=== PATIENT | female | born 1935 | race American Indian/Alaskan Native ===

== ENCOUNTER 2016-12-10 07:01 | Day surgery (SDC) | payer MEDICARE, BC ==
[2016-12-10] MEDS ORDERED: LACTATED RINGERS 1,000 ML IV ONE (07:48)
[2016-12-10] MEDS ORDERED: MIDAZOLAM 2 MG/2 ML VIAL IVP ONE (08:30)
[2016-12-10] MEDS ORDERED: fentaNYL 100 MCG/2 ML VIAL IVP ONE (08:30)
[2017-01-04] MEDS ORDERED: ACETAMINOPHEN 1,000 MG/100 ML VIAL IV ONE (11:30)
[2017-01-04] MEDS ORDERED: GLYCOPYRROLATE 1 MG/5 ML VIAL IVP ONE (11:30)
== END 2016-12-10 07:02 | disposition home or self-care (01) ==
PROC: 0DBN8ZX Excision of Sigmoid Colon, Via Natural or Artificial Opening Endoscopic, Diagnostic (ICD-10-PCS; 2016-12-10)
PROC: 0DBP8ZX Excision of Rectum, Via Natural or Artificial Opening Endoscopic, Diagnostic (ICD-10-PCS; principal; 2016-12-10 11:15)
DX: C19 Malignant neoplasm of rectosigmoid junction (principal); K57.30 Diverticulosis of large intestine without perforation or abscess without bleeding; K62.6 Ulcer of anus and rectum; K63.3 Ulcer of intestine; K64.8 Other hemorrhoids; I48.91 Unspecified atrial fibrillation; E78.5 Hyperlipidemia, unspecified; Z79.891 Long term (current) use of opiate analgesic; Z79.899 Other long term (current) drug therapy
CPT/HCPCS: 45380; J7120

== ENCOUNTER 2017-01-03 | Outpatient (CLI) | payer MEDICARE, BC | END 2017-01-03 16:22 | disposition critical access hospital (66) | CPT/HCPCS: A0425; A0429 ==

== ENCOUNTER 2017-01-03 16:31 | Inpatient (IN) | payer MEDICARE, BC ==
[2017-01-03] MEDS ORDERED: ONDANSETRON 4 MG/2 ML VIAL IVP STA (16:35)
[2017-01-03] MEDS ORDERED: HYDROmorphone 1 MG/ML SYRINGE IVP STA ×3 (16:35→18:49)
[2017-01-03] MEDS ORDERED: ONDANSETRON 4 MG/2 ML VIAL ONE (16:59)
[2017-01-03] MEDS ORDERED: HYDROmorphone 1 MG/ML SYRINGE ONE (16:59)
[2017-01-03] MEDS ORDERED: PROMETHAZINE INJ 12.5 MG in SODIUM CHLORIDE 0.9% 50 ML IV STA (17:12)
[2017-01-03] MEDS ORDERED: SODIUM CHLORIDE 0.9% 1,000 ML IV ONE (18:03)
[2017-01-03] MEDS ORDERED: SODIUM CHLORIDE FLUSH 0.9% 10 ML SYRINGE IVP PRN (18:33)
[2017-01-03] MEDS ORDERED: ONDANSETRON 4 MG/2 ML VIAL IVP SCH (18:47)
[2017-01-03] MEDS ORDERED: SODIUM CHLORIDE 0.9% 500 ML IV SCH (19:09)
[2017-01-03] MEDS ORDERED: cloNIDine 0.1 MG TABLET SL SCH (21:00)
[2017-01-03] MEDS ORDERED: ENALAPRILAT 1.25 MG/ML VIAL IVP SCH (21:00)
[2017-01-03] MEDS: SODIUM CHLORIDE FLUSH 0.9% 10 ML SYRINGE IVP SCH (22:07)
[2017-01-03] MEDS: NS W/20 MEQ KCL 1,000 ML IV SCH (22:33)
[2017-01-04] MEDS: ENALAPRILAT 1.25 MG/ML VIAL IVP SCH ×3 (00:48→14:45)
[2017-01-04] MEDS: ONDANSETRON 4 MG/2 ML VIAL IVP PRN ×2 (00:55→05:56)
[2017-01-04] MEDS: HYDROmorphone 1 MG/ML SYRINGE IVP PRN ×6 (03:44→22:30)
[2017-01-04] MEDS: SODIUM CHLORIDE FLUSH 0.9% 10 ML SYRINGE IVP SCH ×5 (06:02→22:00)
[2017-01-04] MEDS ORDERED: PIPERACILLIN/TAZOBACTAM 3.375 GM in SODIUM CHLORIDE 0.9% MINIBAG 100 ML IV SCH (07:00)
[2017-01-04] MEDS ORDERED: fentaNYL 100 MCG/2 ML VIAL IVP ONE (11:30)
[2017-01-04] MEDS ORDERED: ROCURONIUM 50 MG/5 ML VIAL IVP ONE (11:30)
[2017-01-04] MEDS ORDERED: NEOSTIGMINE 1 MG/1 ML 10 ML MDV IVP ONE (11:30)
[2017-01-04] MEDS ORDERED: PHENYLEPHRINE 50 MG/5 ML VIAL IV ONE (11:30)
[2017-01-04] MEDS ORDERED: ONDANSETRON 4 MG/2 ML VIAL IVP ONE (11:30)
[2017-01-04] MEDS ORDERED: ePHEDrine 50 MG/ML AMP IVP ONE (11:30)
[2017-01-04] MEDS ORDERED: MIDAZOLAM 2 MG/2 ML VIAL IVP ONE (11:30)
[2017-01-04] MEDS ORDERED: LIDOCAINE-PF 2% 10 ML AMP SUBQ ONE (11:30)
[2017-01-04] MEDS ORDERED: SUCCINYLCHOLINE 200 MG/10 ML VIAL IVP ONE (11:30)
[2017-01-04] MEDS ORDERED: GLYCOPYRROLATE 1 MG/5 ML VIAL SUBQ ONE (11:30)
[2017-01-04] MEDS ORDERED: DEXAMETHASONE 4 MG/ML VIAL IVP ONE (11:30)
[2017-01-04] MEDS ORDERED: SODIUM CHLORIDE FLUSH 0.9% 10 ML SYRINGE IVP PRN ×2 (12:01→12:29)
[2017-01-04] MEDS ORDERED: diphenhydrAMINE INJ 50 MG/ML VIAL IVP PRN (12:17)
[2017-01-04] MEDS ORDERED: NALBUPHINE 20 MG/ML AMP IVP PRN (12:17)
[2017-01-04] MEDS ORDERED: SODIUM CHLORIDE 0.9% 1,000 ML IV ONE (12:23)
[2017-01-04] MEDS ORDERED: SUFENTA/BUPIV 0.4 MCG/0.0625% 150 ML EP ONE (12:43)
[2017-01-04] MEDS ORDERED: ALBUMIN 25% 100 ML IV ONE (13:00)
[2017-01-04] MEDS ORDERED: PIPERACILLIN/TAZOBACTAM 3.375 GM in SODIUM CHLORIDE 0.9% MINIBAG 100 ML IV ONE (14:00)
[2017-01-04] MEDS ORDERED: SODIUM CHLORIDE FLUSH 0.9% 10 ML SYRINGE IVP SCH (14:00)
[2017-01-04] MEDS: PANTOPRAZOLE 40 MG VIAL IVP SCH (14:30)
[2017-01-04] MEDS: D5NS W/20 MEQ KCL 1,000 ML IV SCH (14:31)
[2017-01-04] MEDS: SUFENTA/BUPIV 0.4 MCG/0.0625% 150 ML EP PRN ×2 (14:52→19:24)
[2017-01-04] MEDS: NS W/20 MEQ KCL 1,000 ML IV SCH (20:24)
[2017-01-04] MEDS: DOPamine 800 MG/500 ML 500 ML IV SCH (20:25)
[2017-01-04] MEDS: KETOROLAC 15 MG/ML VIAL IVP PRN (22:18)
[2017-01-04] MEDS: ACETAMINOPHEN 1,000 MG/100 ML 100 ML IV PRN (22:18)
[2017-01-05] MEDS: SUFENTA/BUPIV 0.4 MCG/0.0625% 150 ML EP PRN ×3 (03:52→19:38)
[2017-01-05] MEDS: KETOROLAC 15 MG/ML VIAL IVP PRN ×3 (04:30→17:40)
[2017-01-05] MEDS: HYDROmorphone 1 MG/ML SYRINGE IVP PRN ×10 (04:30→22:57)
[2017-01-05] MEDS: ACETAMINOPHEN 1,000 MG/100 ML 100 ML IV PRN ×3 (04:47→17:40)
[2017-01-05] MEDS: ENALAPRILAT 1.25 MG/ML VIAL IVP SCH ×5 (04:51→17:35)
[2017-01-05] MEDS: SODIUM CHLORIDE FLUSH 0.9% 10 ML SYRINGE IVP SCH ×4 (06:18→16:45)
[2017-01-05] MEDS: PANTOPRAZOLE 40 MG VIAL IVP SCH (06:18)
[2017-01-05] MEDS: D5NS W/20 MEQ KCL 1,000 ML IV SCH ×3 (09:20→19:53)
[2017-01-06] MEDS: HYDROmorphone 1 MG/ML SYRINGE IVP PRN ×6 (02:13→22:50)
[2017-01-06] MEDS: SUFENTA/BUPIV 0.4 MCG/0.0625% 150 ML EP PRN ×3 (04:57→18:19)
[2017-01-06] MEDS: ACETAMINOPHEN 1,000 MG/100 ML 100 ML IV PRN (05:53)
[2017-01-06] MEDS: SODIUM CHLORIDE FLUSH 0.9% 10 ML SYRINGE IVP SCH ×4 (07:32→13:27)
[2017-01-06] MEDS: ENALAPRILAT 1.25 MG/ML VIAL IVP SCH ×4 (07:32→18:07)
[2017-01-06] MEDS: D5NS W/20 MEQ KCL 1,000 ML IV SCH ×2 (07:33→15:00)
[2017-01-06] MEDS: PANTOPRAZOLE 40 MG VIAL IVP SCH (07:35)
[2017-01-07] MEDS: ENALAPRILAT 1.25 MG/ML VIAL IVP SCH ×4 (00:15→18:14)
[2017-01-07] MEDS: D5NS W/20 MEQ KCL 1,000 ML IV SCH ×2 (00:27→07:59)
[2017-01-07] MEDS: SUFENTA/BUPIV 0.4 MCG/0.0625% 150 ML EP PRN ×3 (00:27→17:44)
[2017-01-07] MEDS: HYDROmorphone 1 MG/ML SYRINGE IVP PRN ×9 (00:32→23:28)
[2017-01-07] MEDS: SODIUM CHLORIDE FLUSH 0.9% 10 ML SYRINGE IVP SCH ×3 (06:28→23:36)
[2017-01-07] MEDS: PANTOPRAZOLE 40 MG VIAL IVP SCH (06:33)
[2017-01-07] MEDS ORDERED: LABETALOL 20 MG/4 ML SYRINGE IVP ONE (10:28)
[2017-01-07] MEDS ORDERED: diltiaZEM INJ 5 MG/ML VIAL ONE (10:36)
[2017-01-07] MEDS: diltiaZEM INJ 125 MG in DEXTROSE 5% 100 ML IV SCH (11:18)
[2017-01-07] MEDS ORDERED: ADENOSINE 6 MG/2 ML VIAL IVP ONE ×2 (12:00→12:37)
[2017-01-07] MEDS: PIPERACILLIN/TAZOBACTAM 2.25 GM in SODIUM CHLORIDE 0.9% MINIBAG 100 ML IV SCH ×2 (12:45→19:39)
[2017-01-07] MEDS: DOPamine 800 MG/500 ML 500 ML IV SCH (13:39)
[2017-01-08] MEDS: ENALAPRILAT 1.25 MG/ML VIAL IVP SCH ×4 (00:19→18:54)
[2017-01-08] MEDS: D5NS W/20 MEQ KCL 1,000 ML IV SCH (00:33)
[2017-01-08] MEDS: SUFENTA/BUPIV 0.4 MCG/0.0625% 150 ML EP PRN ×3 (01:40→17:23)
[2017-01-08] MEDS: HYDROmorphone 1 MG/ML SYRINGE IVP PRN ×6 (02:42→21:41)
[2017-01-08] MEDS: PIPERACILLIN/TAZOBACTAM 2.25 GM in SODIUM CHLORIDE 0.9% MINIBAG 100 ML IV SCH ×3 (03:54→19:42)
[2017-01-08] MEDS: PANTOPRAZOLE 40 MG VIAL IVP SCH (06:19)
[2017-01-08] MEDS: SODIUM CHLORIDE FLUSH 0.9% 10 ML SYRINGE IVP SCH ×3 (06:19→20:03)
[2017-01-08] MEDS: KETOROLAC 15 MG/ML VIAL IVP PRN (08:22)
[2017-01-08] MEDS: ACETAMINOPHEN 1,000 MG/100 ML 100 ML IV PRN (08:42)
[2017-01-08] MEDS ORDERED: D5NS W/20 MEQ KCL 1,000 ML IV SCH (12:00)
[2017-01-08] MEDS: diltiaZEM CD 120 MG CAPSULE PO SCH (13:24)
[2017-01-08] MEDS: diltiaZEM INJ 125 MG in DEXTROSE 5% 100 ML IV SCH ×2 (13:29→17:06)
[2017-01-08] MEDS ORDERED: diltiaZEM INJ 5 MG/ML VIAL IVP ONE ×2 (15:30→17:00)
[2017-01-08] MEDS ORDERED: diltiaZEM INJ 125 MG in DEXTROSE 5% 100 ML IV ONE (16:47)
[2017-01-09] MEDS: SUFENTA/BUPIV 0.4 MCG/0.0625% 150 ML EP PRN (00:21)
[2017-01-09] MEDS: HYDROmorphone 1 MG/ML SYRINGE IVP PRN ×12 (02:53→23:25)
[2017-01-09] MEDS: D5NS W/20 MEQ KCL 1,000 ML IV SCH ×2 (03:54→10:37)
[2017-01-09] MEDS: PIPERACILLIN/TAZOBACTAM 2.25 GM in SODIUM CHLORIDE 0.9% MINIBAG 100 ML IV SCH ×3 (03:55→20:07)
[2017-01-09] MEDS: ENALAPRILAT 1.25 MG/ML VIAL IVP SCH ×5 (07:44→23:20)
[2017-01-09] MEDS: SODIUM CHLORIDE FLUSH 0.9% 10 ML SYRINGE IVP SCH ×4 (07:44→23:22)
[2017-01-09] MEDS: PANTOPRAZOLE 40 MG VIAL IVP SCH (07:47)
[2017-01-09] MEDS: diltiaZEM CD 120 MG CAPSULE PO SCH (09:57)
[2017-01-09] MEDS ORDERED: fentaNYL 25 MCG PATCH TOP SCH (10:00)
[2017-01-09] MEDS: diltiaZEM INJ 125 MG in DEXTROSE 5% 100 ML IV SCH (10:14)
[2017-01-09] MEDS: ACETAMINOPHEN 1,000 MG/100 ML 100 ML IV PRN ×2 (13:14→22:40)
[2017-01-09] MEDS: ONDANSETRON 4 MG/2 ML VIAL IVP PRN (21:27)
[2017-01-09] MEDS: oxyCODONE 5 MG TABLET PO PRN (23:18)
[2017-01-10] MEDS: HYDROmorphone 1 MG/ML SYRINGE IVP PRN ×15 (02:55→23:43)
[2017-01-10] MEDS: SODIUM CHLORIDE FLUSH 0.9% 10 ML SYRINGE IVP SCH ×9 (02:57→22:46)
[2017-01-10] MEDS: PIPERACILLIN/TAZOBACTAM 2.25 GM in SODIUM CHLORIDE 0.9% MINIBAG 100 ML IV SCH ×3 (03:59→19:19)
[2017-01-10] MEDS: D5NS W/20 MEQ KCL 1,000 ML IV SCH ×2 (04:04→19:18)
[2017-01-10] MEDS: oxyCODONE 5 MG TABLET PO PRN ×3 (04:05→18:10)
[2017-01-10] MEDS: PANTOPRAZOLE 40 MG VIAL IVP SCH (06:37)
[2017-01-10] MEDS: ENALAPRILAT 1.25 MG/ML VIAL IVP SCH (06:59)
[2017-01-10] MEDS: ACETAMINOPHEN 1,000 MG/100 ML 100 ML IV PRN ×2 (07:39→14:07)
[2017-01-10] MEDS: diltiaZEM CD 120 MG CAPSULE PO SCH (09:30)
[2017-01-10] MEDS: ONDANSETRON 4 MG/2 ML VIAL IVP PRN (18:39)
[2017-01-10] MEDS: ENALAPRIL 5 MG TABLET PO SCH (19:20)
[2017-01-10] MEDS ORDERED: SODIUM CHLORIDE 0.9% 500 ML IV PRN (19:46)
[2017-01-11] MEDS: HYDROmorphone 1 MG/ML SYRINGE IVP PRN ×17 (01:38→23:01)
[2017-01-11] MEDS: oxyCODONE 5 MG TABLET PO PRN ×5 (01:43→21:41)
[2017-01-11] MEDS: SODIUM CHLORIDE FLUSH 0.9% 10 ML SYRINGE IVP SCH ×8 (03:54→15:00)
[2017-01-11] MEDS: PIPERACILLIN/TAZOBACTAM 2.25 GM in SODIUM CHLORIDE 0.9% MINIBAG 100 ML IV SCH ×3 (04:50→19:52)
[2017-01-11] MEDS: PANTOPRAZOLE 40 MG VIAL IVP SCH (06:18)
[2017-01-11] MEDS: diltiaZEM CD 120 MG CAPSULE PO SCH (08:18)
[2017-01-11] MEDS: ENALAPRIL 5 MG TABLET PO SCH (08:18)
[2017-01-11] MEDS ORDERED: amLODIPine 5 MG TABLET PO ONE (09:00)
[2017-01-11] MEDS: D5NS W/20 MEQ KCL 1,000 ML IV SCH ×2 (15:18→16:04)
[2017-01-11] MEDS ORDERED: fentaNYL 50 MCG PATCH TOP SCH (19:00)
[2017-01-12] MEDS: HYDROmorphone 1 MG/ML SYRINGE IVP PRN ×17 (00:10→22:59)
[2017-01-12] MEDS: oxyCODONE 5 MG TABLET PO PRN ×6 (01:16→22:26)
[2017-01-12] MEDS: PIPERACILLIN/TAZOBACTAM 2.25 GM in SODIUM CHLORIDE 0.9% MINIBAG 100 ML IV SCH ×3 (03:59→20:09)
[2017-01-12] MEDS: SODIUM CHLORIDE FLUSH 0.9% 10 ML SYRINGE IVP SCH ×8 (06:09→23:00)
[2017-01-12] MEDS: PANTOPRAZOLE 40 MG VIAL IVP SCH (06:33)
[2017-01-12] MEDS: diltiaZEM CD 120 MG CAPSULE PO SCH (08:47)
[2017-01-12] MEDS: ENALAPRIL 5 MG TABLET PO SCH (08:47)
[2017-01-12] MEDS: D5NS W/20 MEQ KCL 1,000 ML IV SCH ×2 (11:30→11:55)
[2017-01-12] MEDS: cloNIDine 0.1 MG TABLET PO PRN (20:20)
[2017-01-13] MEDS: HYDROmorphone 1 MG/ML SYRINGE IVP PRN ×8 (00:12→22:02)
[2017-01-13] MEDS: oxyCODONE 5 MG TABLET PO PRN (03:48)
[2017-01-13] MEDS: PIPERACILLIN/TAZOBACTAM 2.25 GM in SODIUM CHLORIDE 0.9% MINIBAG 100 ML IV SCH (03:53)
[2017-01-13] MEDS: SODIUM CHLORIDE FLUSH 0.9% 10 ML SYRINGE IVP SCH ×4 (06:44→22:02)
[2017-01-13] MEDS: PANTOPRAZOLE 40 MG VIAL IVP SCH (06:44)
[2017-01-13] MEDS: HYDROcod/ACETAM 10 MG/325 MG TABLET PO PRN ×4 (08:12→20:20)
[2017-01-13] MEDS: diltiaZEM CD 120 MG CAPSULE PO SCH (09:25)
[2017-01-13] MEDS: ENALAPRIL 5 MG TABLET PO SCH (09:25)
[2017-01-13] MEDS: D5NS W/20 MEQ KCL 1,000 ML IV SCH (09:42)
[2017-01-13] MEDS: cloNIDine 0.1 MG TABLET PO PRN (20:19)
[2017-01-14] MEDS: HYDROcod/ACETAM 10 MG/325 MG TABLET PO PRN ×4 (00:26→12:56)
[2017-01-14] MEDS: HYDROmorphone 1 MG/ML SYRINGE IVP PRN ×3 (02:21→11:00)
[2017-01-14] MEDS: D5NS W/20 MEQ KCL 1,000 ML IV SCH (05:13)
[2017-01-14] MEDS: SODIUM CHLORIDE FLUSH 0.9% 10 ML SYRINGE IVP SCH (05:18)
[2017-01-14] MEDS ORDERED: amLODIPine 5 MG TABLET PO SCH (09:00)
[2017-01-14] MEDS: diltiaZEM CD 120 MG CAPSULE PO SCH (09:02)
[2017-01-14] MEDS: ENALAPRIL 5 MG TABLET PO SCH (09:02)
[2017-01-14] MEDS ORDERED: ACETAMINOPHEN 1,000 MG/100 ML VIAL IV ONE (15:04)
== END 2017-01-14 15:05 | DRG 330 ==
PROC: 0DBN0ZZ Excision of Sigmoid Colon, Open Approach (ICD-10-PCS; principal; 2017-01-04 07:30)
PROC: 07BC0ZX Excision of Pelvis Lymphatic, Open Approach, Diagnostic (ICD-10-PCS; principal; 2017-01-04 07:30)
PROC: 0D1N0Z4 Bypass Sigmoid Colon to Cutaneous, Open Approach (ICD-10-PCS; principal; 2017-01-04 07:30)
PROC: 30233N1 Transfusion of Nonautologous Red Blood Cells into Peripheral Vein, Percutaneous Approach (ICD-10-PCS; 2017-01-06)
DX: C19 Malignant neoplasm of rectosigmoid junction (principal); K62.89 Other specified diseases of anus and rectum; C78.6 Secondary malignant neoplasm of retroperitoneum and peritoneum; C79.51 Secondary malignant neoplasm of bone; E87.1 Hypo-osmolality and hyponatremia; E46 Unspecified protein-calorie malnutrition; Z68.20 Body mass index [BMI] 20.0-20.9, adult; D64.9 Anemia, unspecified; I10 Essential (primary) hypertension; E86.0 Dehydration; G89.3 Neoplasm related pain (acute) (chronic); I48.91 Unspecified atrial fibrillation; D72.829 Elevated white blood cell count, unspecified; E87.8 Other disorders of electrolyte and fluid balance, not elsewhere classified; Z87.891 Personal history of nicotine dependence; C78.02 Secondary malignant neoplasm of left lung; C78.01 Secondary malignant neoplasm of right lung; Z79.891 Long term (current) use of opiate analgesic; Z71.89 Other specified counseling; Z66 Do not resuscitate; R53.83 Other fatigue; R53.1 Weakness

== ENCOUNTER 2017-01-21 17:19 | Outpatient (CLI) | payer MEDICARE, BC | END 2017-01-21 17:20 | disposition critical access hospital (66) | DX: R10.9 Unspecified abdominal pain (principal) | CPT/HCPCS: A0425; A0429 ==

== ENCOUNTER 2017-01-21 17:25 | Inpatient (IN) | payer MEDICARE, BC ==
[2017-01-21] MEDS ORDERED: HYDROmorphone 1 MG/ML SYRINGE IVP STA ×2 (17:33→20:34)
[2017-01-21] MEDS ORDERED: ONDANSETRON 4 MG/2 ML VIAL IVP STA ×2 (17:33→21:03)
[2017-01-21] MEDS ORDERED: SODIUM CHLORIDE 0.9% 1,000 ML IV ONE ×2 (17:33→17:40)
[2017-01-21] MEDS ORDERED: HYDROmorphone 1 MG/ML SYRINGE ONE ×2 (17:40→20:52)
[2017-01-21] MEDS ORDERED: ONDANSETRON 4 MG/2 ML VIAL ONE ×2 (17:40→20:52)
[2017-01-21] MEDS ORDERED: IOPAMIDOL-300 100 ML VIAL IVP ONE (19:08)
[2017-01-21] MEDS ORDERED: IOPAMIDOL-300 50 ML VIAL PO ONE (19:12)
[2017-01-21] MEDS ORDERED: MAGNESIUM CITRATE 296 ML BOTTLE PO STA (20:00)
[2017-01-21] MEDS ORDERED: METHYLNALTREXONE 12 MG/0.6 ML VIAL SUBQ ONE ×2 (20:00→20:03)
[2017-01-21] MEDS ORDERED: PIPERACILLIN/TAZOBACTAM 3.375 GM in SODIUM CHLORIDE 0.9% MINIBAG 100 ML IV STA (20:01)
[2017-01-21] MEDS ORDERED: MAGNESIUM CITRATE 296 ML BOTTLE ONE (20:03)
[2017-01-21] MEDS ORDERED: ACETAMINOPHEN 325 MG TABLET PO PRN (21:08)
[2017-01-21] MEDS ORDERED: HYDROmorphone 1 MG/ML SYRINGE IVP PRN (21:08)
[2017-01-21] MEDS ORDERED: LORazepam 0.5 MG TABLET PO PRN (21:11)
[2017-01-21] MEDS ORDERED: LORazepam 2 MG/ML SYRINGE IVP STA (21:13)
[2017-01-21] MEDS ORDERED: KETOROLAC 60 MG/2 ML VIAL IVP STA (21:13)
[2017-01-21] MEDS ORDERED: LORazepam 2 MG/ML SYRINGE ONE (21:14)
[2017-01-21] MEDS ORDERED: KETOROLAC 30 MG/ML VIAL ONE (21:17)
[2017-01-21] MEDS ORDERED: HYDROmorphone PCA 10 MG IV PRN ×2 (21:37→22:28)
[2017-01-21] MEDS ORDERED: diphenhydrAMINE INJ 50 MG/ML VIAL IVP PRN (21:37)
[2017-01-21] MEDS ORDERED: LORazepam 2 MG/ML SYRINGE IVP PRN (21:43)
[2017-01-21] MEDS: SODIUM CHLORIDE FLUSH 0.9% 10 ML SYRINGE IVP SCH ×2 (22:16→22:42)
[2017-01-21] MEDS: SODIUM CHLORIDE FLUSH 0.9% 10 ML SYRINGE IVP PRN (22:42)
[2017-01-21] MEDS ORDERED: PROCHLORPERAZINE 10 MG/2 ML VIAL IVP PRN (22:47)
[2017-01-21] MEDS ORDERED: FUROSEMIDE 20 MG/2 ML VIAL IVP STA (23:04)
[2017-01-21] MEDS: ONDANSETRON 4 MG/2 ML VIAL IVP PRN (23:40)
[2017-01-22] MEDS ORDERED: diphenhydrAMINE INJ 50 MG/ML VIAL IVP PRN (00:40)
[2017-01-22] MEDS ORDERED: PROMETHAZINE 25 MG/1 ML VIAL IM PRN (00:40)
[2017-01-22] MEDS: SODIUM CHLORIDE 0.9% 1,000 ML IV SCH ×4 (00:41→14:49)
[2017-01-22] MEDS: HYDROmorphone PCA 10 MG IV PRN ×2 (01:01→21:02)
[2017-01-22] MEDS ORDERED: PIPERACILLIN/TAZOBACTAM 4.5 GM in SODIUM CHLORIDE 0.9% MINIBAG 100 ML IV SCH (02:00)
[2017-01-22] MEDS: PIPERACILLIN/TAZOBACTAM 4.5 GM in SODIUM CHLORIDE 0.9% MINIBAG 100 ML IV SCH ×2 (02:16→08:51)
[2017-01-22] MEDS: SODIUM CHLORIDE FLUSH 0.9% 10 ML SYRINGE IVP SCH ×3 (05:36→22:11)
[2017-01-22] MEDS: diltiaZEM CD 120 MG CAPSULE PO SCH (08:51)
[2017-01-22] MEDS: ENOXAPARIN 30 MG/0.3 ML SYRINGE SUBQ SCH (08:51)
[2017-01-22] MEDS: LISINOPRIL 5 MG TABLET PO SCH (08:51)
[2017-01-22] MEDS: SACCHAROMYCES BOULARDII 250 MG CAPSULE PO SCH ×2 (08:51→21:42)
[2017-01-22] MEDS ORDERED: POLYETHYLENE GLYCOL 3350 17 GM PACKET PO SCH (09:00)
[2017-01-22] MEDS ORDERED: ENOXAPARIN 40 MG/0.4 ML SYRINGE SUBQ SCH (09:00)
[2017-01-22] MEDS ORDERED: METHYLNALTREXONE 12 MG/0.6 ML VIAL SUBQ ONE (12:20)
[2017-01-22] MEDS ORDERED: SODIUM CHLORIDE 0.9% 500 ML IV ONE (12:21)
[2017-01-22] MEDS ORDERED: MIN OIL/DIMETHICON/COCONUT OIL 92 GM TUBE TOP ONE (13:01)
[2017-01-22] MEDS: cefTRIAXone 1 GM in SODIUM CHLORIDE 0.9% MINIBAG 100 ML IV SCH (14:17)
[2017-01-22] MEDS ORDERED: DEXTROSE 5%-0.45% NACL 1,000 ML IV SCH (15:00)
[2017-01-22] MEDS ORDERED: fentaNYL 12 MCG PATCH TOP SCH (17:00)
[2017-01-22] MEDS: SENNA 8.6 MG TABLET PO SCH (21:42)
[2017-01-23] MEDS: SODIUM CHLORIDE 0.9% 1,000 ML IV SCH ×3 (00:54→13:09)
[2017-01-23] MEDS ORDERED: DEXTROSE 5%-0.45% NACL 1,000 ML IV SCH (01:00)
[2017-01-23] MEDS: SODIUM CHLORIDE FLUSH 0.9% 10 ML SYRINGE IVP PRN (06:10)
[2017-01-23] MEDS: SODIUM CHLORIDE FLUSH 0.9% 10 ML SYRINGE IVP SCH ×3 (06:14→20:07)
[2017-01-23] MEDS ORDERED: BENZOCAINE/MENTHOL LOZENGE MM PRN (06:16)
[2017-01-23] MEDS ORDERED: PHENOL THROAT SPRAY 177 ML MM PRN (06:16)
[2017-01-23] MEDS ORDERED: POTASSIUM PHOSPHATE 15 MMOL in SODIUM CHLORIDE 0.9% 250 ML IV ONE (09:00)
[2017-01-23] MEDS ORDERED: fentaNYL 50 MCG PATCH TOP SCH (09:00)
[2017-01-23] MEDS: cefTRIAXone 1 GM in SODIUM CHLORIDE 0.9% MINIBAG 100 ML IV SCH (09:26)
[2017-01-23] MEDS: POLYETHYLENE GLYCOL 3350 17 GM PACKET PO SCH (09:27)
[2017-01-23] MEDS: ENOXAPARIN 30 MG/0.3 ML SYRINGE SUBQ SCH (09:27)
[2017-01-23] MEDS: LISINOPRIL 5 MG TABLET PO SCH (09:28)
[2017-01-23] MEDS: SENNA 8.6 MG TABLET PO SCH ×2 (09:28→20:10)
[2017-01-23] MEDS: diltiaZEM CD 120 MG CAPSULE PO SCH (09:29)
[2017-01-23] MEDS: SACCHAROMYCES BOULARDII 250 MG CAPSULE PO SCH ×2 (09:29→16:53)
[2017-01-23] MEDS ORDERED: SODIUM CHLORIDE 0.9% 1,000 ML IV SCH (12:24)
[2017-01-23] MEDS: ONDANSETRON 4 MG/2 ML VIAL IVP PRN (16:59)
[2017-01-23] MEDS ORDERED: fentaNYL 12 MCG PATCH TOP SCH (18:00)
[2017-01-23] MEDS: HYDROmorphone 2 MG TABLET PO PRN (22:39)
[2017-01-24] MEDS: ONDANSETRON 4 MG/2 ML VIAL IVP PRN ×3 (00:14→14:23)
[2017-01-24] MEDS: SODIUM CHLORIDE FLUSH 0.9% 10 ML SYRINGE IVP PRN ×2 (00:15→14:48)
[2017-01-24] MEDS: HYDROmorphone 2 MG TABLET PO PRN ×5 (01:37→13:32)
[2017-01-24] MEDS: SODIUM CHLORIDE 0.9% 1,000 ML IV SCH (04:13)
[2017-01-24] MEDS: SODIUM CHLORIDE FLUSH 0.9% 10 ML SYRINGE IVP SCH (07:27)
[2017-01-24] MEDS ORDERED: POTASSIUM PHOSPHATE 15 MMOL in SODIUM CHLORIDE 0.9% 250 ML IV ONE (08:00)
[2017-01-24] MEDS: SENNA 8.6 MG TABLET PO SCH (08:01)
[2017-01-24] MEDS: SACCHAROMYCES BOULARDII 250 MG CAPSULE PO SCH (08:02)
[2017-01-24] MEDS: diltiaZEM CD 120 MG CAPSULE PO SCH (08:02)
[2017-01-24] MEDS: LISINOPRIL 5 MG TABLET PO SCH (08:02)
[2017-01-24] MEDS: POLYETHYLENE GLYCOL 3350 17 GM PACKET PO SCH (08:02)
[2017-01-24] MEDS: ENOXAPARIN 30 MG/0.3 ML SYRINGE SUBQ SCH ×2 (08:03→10:53)
[2017-01-24] MEDS ORDERED: fentaNYL 50 MCG PATCH TOP SCH (11:00)
== END 2017-01-24 15:15 | disposition home or self-care (01) | DRG 391 ==
DX: K59.03 Drug induced constipation (principal); T81.4XXA Infection following a procedure, initial encounter; K65.9 Peritonitis, unspecified; C18.9 Malignant neoplasm of colon, unspecified; E43 Unspecified severe protein-calorie malnutrition; Z68.1 Body mass index [BMI] 19.9 or less, adult; R64 Cachexia; E87.1 Hypo-osmolality and hyponatremia; C19 Malignant neoplasm of rectosigmoid junction; C78.02 Secondary malignant neoplasm of left lung; C78.01 Secondary malignant neoplasm of right lung; C79.51 Secondary malignant neoplasm of bone; T40.605A Adverse effect of unspecified narcotics, initial encounter; E86.0 Dehydration; G89.3 Neoplasm related pain (acute) (chronic); I48.2 Chronic atrial fibrillation; D72.829 Elevated white blood cell count, unspecified; F41.9 Anxiety disorder, unspecified; D64.9 Anemia, unspecified; Z93.3 Colostomy status; Z87.891 Personal history of nicotine dependence; Y92.129 Unspecified place in nursing home as the place of occurrence of the external cause; Z66 Do not resuscitate

== ENCOUNTER 2017-01-28 12:15 | Outpatient (CLI) | payer MEDICARE, BC | END 2017-01-28 12:16 | disposition home or self-care (01) | DX: Z51.5 Encounter for palliative care (principal); G89.3 Neoplasm related pain (acute) (chronic); C18.9 Malignant neoplasm of colon, unspecified; C78.00 Secondary malignant neoplasm of unspecified lung; C79.51 Secondary malignant neoplasm of bone; K59.00 Constipation, unspecified; I10 Essential (primary) hypertension; Z93.3 Colostomy status; Z66 Do not resuscitate ==

== ENCOUNTER 2017-02-04 13:10 | Outpatient (CLI) | payer MEDICARE, BC | END 2017-02-04 13:11 | disposition home or self-care (01) | DX: Z51.5 Encounter for palliative care (principal); G89.3 Neoplasm related pain (acute) (chronic); C18.9 Malignant neoplasm of colon, unspecified; C78.00 Secondary malignant neoplasm of unspecified lung; C79.51 Secondary malignant neoplasm of bone; K59.00 Constipation, unspecified; I10 Essential (primary) hypertension; Z93.3 Colostomy status; I48.0 Paroxysmal atrial fibrillation; H91.90 Unspecified hearing loss, unspecified ear; R53.83 Other fatigue; R53.1 Weakness; D64.9 Anemia, unspecified; Z79.899 Other long term (current) drug therapy; Z79.891 Long term (current) use of opiate analgesic ==

== ENCOUNTER 2017-02-11 12:30 | Outpatient (CLI) | payer MEDICARE, BC | END 2017-02-11 12:31 | disposition home or self-care (01) | DX: Z51.5 Encounter for palliative care (principal); G89.3 Neoplasm related pain (acute) (chronic); C18.9 Malignant neoplasm of colon, unspecified; C78.00 Secondary malignant neoplasm of unspecified lung; C79.51 Secondary malignant neoplasm of bone; K59.00 Constipation, unspecified; I10 Essential (primary) hypertension; H91.90 Unspecified hearing loss, unspecified ear; Z93.3 Colostomy status; Z79.891 Long term (current) use of opiate analgesic; Z66 Do not resuscitate ==

== ENCOUNTER 2017-02-15 00:35 | Observation (INO) | payer MEDICARE, BC ==
[2017-02-15] MEDS ORDERED: ONDANSETRON 4 MG/2 ML VIAL IVP STA ×3 (01:22→08:27)
[2017-02-15] MEDS ORDERED: SODIUM CHLORIDE 0.9% 1,000 ML IV ONE ×3 (01:22→04:10)
[2017-02-15] MEDS ORDERED: ONDANSETRON 4 MG/2 ML VIAL ONE ×2 (01:26→06:18)
[2017-02-15] MEDS ORDERED: PROMETHAZINE INJ 25 MG in SODIUM CHLORIDE 0.9% 50 ML IV STA (02:13)
[2017-02-15] MEDS ORDERED: PROMETHAZINE 25 MG/1 ML VIAL ONE (02:16)
[2017-02-15] MEDS ORDERED: cloNIDine 0.1 MG TABLET PO STA (03:16)
[2017-02-15] MEDS ORDERED: cloNIDine 0.1 MG TABLET ONE (03:17)
[2017-02-15] MEDS ORDERED: IBUPROFEN 600 MG TABLET PO ONE (05:44)
[2017-02-15] MEDS ORDERED: ACETAMINOPHEN 325 MG TABLET PO ONE (05:44)
[2017-02-15] MEDS ORDERED: ONDANSETRON 4 MG/2 ML VIAL IVP PRN ×2 (06:34→08:28)
[2017-02-15] MEDS ORDERED: SODIUM CHLORIDE FLUSH 0.9% 10 ML SYRINGE IVP PRN (06:34)
[2017-02-15] MEDS ORDERED: SODIUM CHLORIDE 0.9% 1,000 ML IV SCH ×2 (07:00→16:00)
[2017-02-15] MEDS ORDERED: IOPAMIDOL-300 100 ML VIAL IVP ONE (07:36)
[2017-02-15] MEDS ORDERED: POLYETHYLENE GLYCOL 3350 17 GM PACKET PO SCH (09:00)
[2017-02-15] MEDS ORDERED: PROCHLORPERAZINE 10 MG/2 ML VIAL IVP PRN (09:02)
[2017-02-15] MEDS: LISINOPRIL 5 MG TABLET PO SCH (09:53)
[2017-02-15] MEDS: HEPARIN 5,000 UNIT/ML VIAL SUBQ SCH ×2 (09:53→20:32)
[2017-02-15] MEDS ORDERED: fentaNYL 12 MCG PATCH TOP SCH (10:00)
[2017-02-15] MEDS ORDERED: diltiaZEM CD 120 MG CAPSULE PO SCH (10:00)
[2017-02-15] MEDS ORDERED: fentaNYL 50 MCG PATCH TOP SCH (10:00)
[2017-02-15] MEDS ORDERED: fentaNYL 25 MCG PATCH TOP SCH ×3 (10:00→11:00)
[2017-02-15] MEDS ORDERED: SODIUM CHLORIDE 1 GM TABLET PO SCH (12:00)
[2017-02-15] MEDS: POLYETHYLENE GLYCOL 3350 17 GM PACKET PO SCH (12:43)
[2017-02-15] MEDS: SENNA 8.6 MG TABLET PO SCH ×2 (12:43→20:30)
[2017-02-15] MEDS ORDERED: LABETALOL 20 MG/4 ML SYRINGE IVP ONE (14:00)
[2017-02-15] MEDS: SODIUM CHLORIDE FLUSH 0.9% 10 ML SYRINGE IVP SCH ×2 (14:31→22:44)
[2017-02-15] MEDS: HYDROmorphone 2 MG TABLET PO PRN ×2 (14:49→18:43)
[2017-02-16] MEDS: HYDROmorphone 2 MG TABLET PO PRN ×2 (00:10→04:11)
[2017-02-16] MEDS: SODIUM CHLORIDE FLUSH 0.9% 10 ML SYRINGE IVP SCH (06:29)
[2017-02-16] MEDS ORDERED: ACETAMINOPHEN 325 MG TABLET PO PRN (08:11)
[2017-02-16] MEDS ORDERED: HYDROmorphone 2 MG TABLET PO PRN (08:11)
[2017-02-16] MEDS ORDERED: SENNA 8.6 MG TABLET PO SCH (09:00)
[2017-02-16] MEDS ORDERED: SODIUM CHLORIDE 1 GM TABLET PO SCH (09:00)
[2017-02-16] MEDS: HEPARIN 5,000 UNIT/ML VIAL SUBQ SCH (09:04)
[2017-02-16] MEDS: POLYETHYLENE GLYCOL 3350 17 GM PACKET PO SCH (09:04)
[2017-02-16] MEDS: LISINOPRIL 5 MG TABLET PO SCH (09:04)
== END 2017-02-16 13:31 | disposition home or self-care (01) ==
DX: R11.2 Nausea with vomiting, unspecified (principal); C19 Malignant neoplasm of rectosigmoid junction; C78.02 Secondary malignant neoplasm of left lung; C78.01 Secondary malignant neoplasm of right lung; C79.51 Secondary malignant neoplasm of bone; G89.3 Neoplasm related pain (acute) (chronic); D64.9 Anemia, unspecified; I48.0 Paroxysmal atrial fibrillation; K59.03 Drug induced constipation; Z66 Do not resuscitate; T40.605D Adverse effect of unspecified narcotics, subsequent encounter; E43 Unspecified severe protein-calorie malnutrition; R64 Cachexia; E87.1 Hypo-osmolality and hyponatremia; E27.8 Other specified disorders of adrenal gland; Z68.1 Body mass index [BMI] 19.9 or less, adult; R53.1 Weakness; Z79.899 Other long term (current) drug therapy; Z87.891 Personal history of nicotine dependence; Z93.3 Colostomy status
CPT/HCPCS: 36415; 74177; 80053; 81001; 83690; 83735; 84295; 85025; 96361; 96365; 96372; 96375; 96376; 99284; A9270; G0378; Q9967

== ENCOUNTER 2017-02-15 00:35 | Outpatient (CLI) | payer MEDICARE, BC | END 2017-02-15 00:36 | disposition critical access hospital (66) | DX: R11.2 Nausea with vomiting, unspecified (principal) | CPT/HCPCS: A0425; A0427 ==

== ENCOUNTER 2017-02-22 14:12 | Outpatient (CLI) | payer MEDICARE, BC | END 2017-02-22 14:13 | disposition home or self-care (01) | DX: Z51.5 Encounter for palliative care (principal); G89.3 Neoplasm related pain (acute) (chronic); C80.1 Malignant (primary) neoplasm, unspecified; C78.5 Secondary malignant neoplasm of large intestine and rectum; C78.00 Secondary malignant neoplasm of unspecified lung; I10 Essential (primary) hypertension; K59.00 Constipation, unspecified; Z93.3 Colostomy status; R53.83 Other fatigue; R53.1 Weakness; H91.90 Unspecified hearing loss, unspecified ear; Z66 Do not resuscitate ==

== ENCOUNTER 2017-03-04 12:13 | Outpatient (CLI) | payer MEDICARE, BC | END 2017-03-04 12:14 | disposition home or self-care (01) | DX: Z51.5 Encounter for palliative care (principal); G89.3 Neoplasm related pain (acute) (chronic); I10 Essential (primary) hypertension; K59.00 Constipation, unspecified; C18.9 Malignant neoplasm of colon, unspecified; C78.00 Secondary malignant neoplasm of unspecified lung; C79.51 Secondary malignant neoplasm of bone; C78.6 Secondary malignant neoplasm of retroperitoneum and peritoneum; Z93.3 Colostomy status; Z66 Do not resuscitate ==

== ENCOUNTER 2017-03-06 02:10 | Outpatient (CLI) | payer MEDICARE, BC | END 2017-03-06 02:11 | disposition critical access hospital (66) | DX: R11.2 Nausea with vomiting, unspecified (principal) | CPT/HCPCS: A0425; A0429 ==

== ENCOUNTER 2017-03-06 02:22 | Observation (INO) | payer MEDICARE, BC ==
[2017-03-06] MEDS ORDERED: SODIUM CHLORIDE 0.9% 1,000 ML IV ONE (03:22)
[2017-03-06] MEDS ORDERED: ONDANSETRON 4 MG/2 ML VIAL IVP STA (03:22)
[2017-03-06] MEDS ORDERED: ONDANSETRON 4 MG/2 ML VIAL ONE (03:27)
[2017-03-06] MEDS ORDERED: ONDANSETRON ODT 4 MG TABLET TL STA (04:59)
[2017-03-06] MEDS ORDERED: ONDANSETRON ODT 4 MG TABLET ONE (05:03)
[2017-03-06] MEDS ORDERED: PROMETHAZINE 25 MG TABLET PO STA (05:53)
[2017-03-06] MEDS ORDERED: PROMETHAZINE 25 MG TABLET ONE (05:55)
[2017-03-06] MEDS ORDERED: PROMETHAZINE INJ 25 MG in SODIUM CHLORIDE 0.9% 50 ML IV STA (06:42)
[2017-03-06] MEDS ORDERED: PROMETHAZINE 25 MG/1 ML VIAL ONE (06:48)
[2017-03-06] MEDS ORDERED: DEXAMETHASONE 10 MG/ML VIAL IVP STA (08:35)
[2017-03-06] MEDS ORDERED: DEXAMETHASONE 10 MG/ML VIAL ONE (08:44)
[2017-03-06] MEDS ORDERED: SODIUM CHLORIDE FLUSH 0.9% 10 ML SYRINGE IVP PRN (10:25)
[2017-03-06] MEDS: SODIUM CHLORIDE 0.9% 1,000 ML IV SCH ×2 (11:13→20:52)
[2017-03-06] MEDS ORDERED: ONDANSETRON 4 MG/2 ML VIAL IVP ONE (11:30)
[2017-03-06] MEDS ORDERED: HYDROmorphone 1 MG/ML SYRINGE IVP ONE (11:33)
[2017-03-06] MEDS ORDERED: ONDANSETRON 4 MG/2 ML VIAL IVP PRN (11:35)
[2017-03-06] MEDS ORDERED: HYDROmorphone 1 MG/ML SYRINGE IVP PRN (12:34)
[2017-03-06] MEDS ORDERED: fentaNYL 12 MCG PATCH TOP SCH ×2 (13:00→15:00)
[2017-03-06] MEDS ORDERED: fentaNYL 50 MCG PATCH TOP SCH ×2 (13:00→15:00)
[2017-03-06] MEDS: SODIUM CHLORIDE FLUSH 0.9% 10 ML SYRINGE IVP SCH ×2 (14:41→20:52)
[2017-03-06] MEDS: LISINOPRIL 5 MG TABLET PO SCH (14:46)
[2017-03-06] MEDS: HYDROmorphone 2 MG TABLET PO PRN ×2 (14:50→20:51)
[2017-03-06] MEDS: SENNA 8.6 MG TABLET PO SCH (20:51)
[2017-03-07] MEDS: HYDROmorphone 2 MG TABLET PO PRN (03:35)
[2017-03-07] MEDS: SODIUM CHLORIDE FLUSH 0.9% 10 ML SYRINGE IVP SCH (05:29)
[2017-03-07] MEDS: SODIUM CHLORIDE 0.9% 1,000 ML IV SCH (06:32)
[2017-03-07] MEDS: LISINOPRIL 5 MG TABLET PO SCH (08:32)
[2017-03-07] MEDS: SENNA 8.6 MG TABLET PO SCH (08:33)
[2017-03-07] MEDS ORDERED: diltiaZEM CD 120 MG CAPSULE PO SCH (09:00)
== END 2017-03-07 13:20 | disposition home or self-care (01) ==
DX: R11.2 Nausea with vomiting, unspecified (principal); E86.0 Dehydration; E87.1 Hypo-osmolality and hyponatremia; G89.3 Neoplasm related pain (acute) (chronic); C18.9 Malignant neoplasm of colon, unspecified; I10 Essential (primary) hypertension; I48.0 Paroxysmal atrial fibrillation; R53.83 Other fatigue; Z98.0 Intestinal bypass and anastomosis status; Z92.21 Personal history of antineoplastic chemotherapy; Z87.891 Personal history of nicotine dependence; D64.9 Anemia, unspecified; K59.03 Drug induced constipation; T40.605A Adverse effect of unspecified narcotics, initial encounter; Z93.3 Colostomy status; Z79.891 Long term (current) use of opiate analgesic
CPT/HCPCS: 36415; 80053; 81001; 83690; 85025; 85027; 96361; 96374; 96375; 96376; 99284; 99285; A9270; G0378; J1170; Q0162

== ENCOUNTER 2017-03-08 18:01 | Inpatient (IN) | payer MEDICARE, BC ==
--- NOTE | 2017-03-08 18:38 | ED Physician Documentation ---
PD HPI ABD PAIN - Stated complaint Stated Complaint: STOMACH PAIN - Chief complaint Chief Complaint: Abd Pain - History obtained from History obtained from: Patient - History of Present Illness Timing - onset: Yesterday Timing - duration: Days (2) Timing - details: Gradual onset Pain level max: 10 Pain level now: 10 Quality: Cramping, Aching, Pain Location: Epigastric Radiation: Other (non-radiating) Improved by: Vomiting Worsened by: Eating Associated symptoms: Nausea, Vomiting. No: Fever Similar symptoms before: Diagnosis (colon cancer with radiation treatment today. ) Recently seen: Admitted (for observation for same) - Additional information Additional information: cramping and nausea for 4 hours today. No vomiting today. Normal ostomy output Review of Systems Ten Systems: 10 systems reviewed and negative Constitutional: denies: Fever, Chills Nose: denies: Rhinorrhea / runny nose, Congestion Respiratory: denies: Cough GI: reports: Abdominal Pain, Nausea, Vomiting Skin: denies: Rash Musculoskeletal: denies: Neck pain, Back pain Neurologic: denies: Seizure, Headache, Head injury, LOC PD PAST MEDICAL HISTORY - Past Medical History Past Medical History: Yes Cardiovascular: Hypertension Respiratory: None Endocrine/Autoimmune: None GI: GERD, Other : None HEENT: Chronic hearing loss Psych: None Musculoskeletal: None Derm: None - Past Surgical History Past Surgical History: Yes General: Colonoscopy, Other /SITE SURVEYOR: Oophrectomy HEENT: Cataracts - Present Medications Home Medications: Ambulatory Orders Medication Instructions Recorded Confirmed Lisinopril 10 mg PO DAILY 01/21/17 03/06/17 fentaNYL 50 MCG PATCH [Duragesic 1 patch TOP Q72H 01/21/17 03/06/17 50mcg patch] Ondansetron Odt [Zofran Odt] 4 mg SL Q4HR PRN 30 Days 01/24/17 03/06/17 Senna [Senokot] 8.6 mg PO BID 02/15/17 03/06/17 Fentanyl [Fentanyl 12mcg patch] 1 patch TOP Q72H 03/06/17 03/06/17 HYDROmorphone [Dilaudid] 2 mg PO Q3H PRN 03/06/17 03/06/17 - Allergies Allergies/Adverse Reactions: Allergies Allergy/AdvReac Type Severity Reaction Status Date / Time No Known Drug Allergies Allergy Verified 03/08/17 18:10 - Social History Does the pt smoke?: No Smoking Status: Former smoker Does the pt drink ETOH?: Yes Does the pt have substance abuse?: No - Immunizations Immunizations are current?: Yes - POLST Patient has POLST: No PD ED PE NORMAL - Vitals Vital signs reviewed: Yes - General General: Alert and oriented X 3, No acute distress, Well developed/nourished - HEENT HEENT: Moist mucous membranes - Neck Neck: Supple, no meningeal sign - Cardiac Cardiac: RRR, Strong equal pulses - Respiratory Respiratory: No respiratory distress, Clear bilaterally - Abdomen Abdomen: Soft, Other (mild distention, diffuse TTP. ostomy in place) - Back Back: No spinal TTP - Derm Derm: Warm and dry, No rash - Neuro Neuro: Alert and oriented X 3 - Psych Psych: Normal mood, Normal affect Results - Vitals Vitals: Vital Signs - 24 hr 03/08/17 03/08/17 03/08/17 18:06 18:44 19:59 Temperature 36.9 C 36.9 C Heart Rate 77 73 Respiratory 18 16 Rate Blood Pressure 215/62 H 204/64 H O2 Saturation 100 100 03/08/17 03/08/17 03/08/17 20:30 21:29 23:00 Temperature 36.8 C Heart Rate 90 94 70 Respiratory 17 15 18 Rate Blood Pressure 202/61 H 200/54 H 225/64 H O2 Saturation 100 99 100 Oxygen O2 Source Room air - Labs Labs: Laboratory Tests 03/08/17 03/08/17 19:53 19:53 WBC 12.7 H RBC 3.73 L Hgb 10.7 L Hct 33.5 L MCV 89.8 MCH 28.7 MCHC 31.9 L RDW 16.1 H Plt Count 428 MPV 6.4 L Neut # 11.2 H Lymph # 0.7 L [place] # 0.7 Eos # 0.1 Baso # 0.1 Absolute Nucleated RBC 0.00 Nucleated RBCs 0.0 Sodium 130 L Potassium 3.7 Chloride 99 L Carbon Dioxide 23 Anion Gap 8.0 BUN 14 Creatinine 0.4 Estimated GFR (MDRD) 154 Glucose 126 H Calcium 8.6 Total Bilirubin 0.6 AST 15 ALT 11 Alkaline Phosphatase 69 Total Protein 6.4 L Albumin 3.4 Globulin 3.0 Albumin/Globulin Ratio 1.1 Lipase 18 L - Rads (name of study) CT abd/pelvis Radiology: EMP read indepedently (SBO) PD MEDICAL DECISION MAKING - ED course Complexity details: reviewed old records, reviewed results, re-evaluated patient , considered differential, d/w patient, d/w strategic consultant ED course: Patient is an 81-year-old female with metastatic rectal cancer, stage IV. She appears to have a small bowel obstruction on CT scan. NG tube was placed. Vomiting improved. Discussed the case with Dr.'s Cohn, general surgery on- call, who recommended the NG tube placement and admit to the hospitalist for bowel rest. Discussed the case with Dr. Jain, who accepts the patient. Patient's pain was well controlled with Dilaudid and nausea improved with Phenergan. This document was made in part using voice recognition software. While efforts are made to proofread this document, sound alike and grammatical errors may occur. Departure - Departure Disposition: 66 [facility] DC/Xfer Clinical Impression: Small bowel obstruction Intractable vomiting Qualifiers: Vomiting type: unspecified Nausea presence: with nausea Qualified Code(s): R11.2 - Nausea with vomiting, unspecified HTN (hypertension) Qualifiers: Hypertension type: essential hypertension Qualified Code(s): I10 - Essential ( primary) hypertension Condition: Stable
[2017-03-08] MEDS ORDERED: SODIUM CHLORIDE 0.9% 1,000 ML IV ONE (18:39)
[2017-03-08] MEDS ORDERED: ONDANSETRON 4 MG/2 ML VIAL IVP STA (18:39)
[2017-03-08] MEDS ORDERED: DICYCLOMINE 10 MG CAPSULE PO STA (18:39)
[2017-03-08] MEDS ORDERED: DICYCLOMINE 10 MG CAPSULE PO ONE (19:13)
[2017-03-08] MEDS ORDERED: ONDANSETRON 4 MG/2 ML VIAL ONE (19:13)
[2017-03-08] MEDS ORDERED: HYDROmorphone 1 MG/ML SYRINGE IVP STA (19:24)
[2017-03-08] MEDS ORDERED: PROMETHAZINE INJ 25 MG in SODIUM CHLORIDE 0.9% 50 ML IV STA (19:42)
[2017-03-08] MEDS ORDERED: PROMETHAZINE 25 MG/1 ML VIAL ONE (19:45)
[2017-03-08] MEDS ORDERED: HYDROmorphone 1 MG/ML SYRINGE ONE (19:45)
[2017-03-08 20:01] LABS: BASOPHILS # (AUTO) 0.1 10^3/uL (0.0-0.1); BASOPHILS % (AUTO) 0.5 %; EOSINOPHILS # (AUTO) 0.1 10^3/uL (0.0-0.7); EOSINOPHILS % (AUTO) 0.6 %; HCT - HEMATOCRIT 33.5 % (37.0-47.0); HGB - HEMOGLOBIN 10.7 g/dL (12.0-16.0); LYMPHOCYTES # (AUTO) 0.7 10^3/uL (1.5-3.5); LYMPHOCYTES % (AUTO) 5.3 %; MEAN CORPUSCULAR HEMOGLOBIN 28.7 pg (27.0-31.0); MEAN CORPUSCULAR HGB CONC 31.9 g/dL (32.0-36.0); MEAN CORPUSCULAR VOLUME 89.8 fL (81.0-99.0); MEAN PLATELET VOLUME 6.4 fL (7.9-10.8); MONOCYTES # (AUTO) 0.7 10^3/uL (0.0-1.0); MONOCYTES % (AUTO) 5.4 %; NEUTROPHILS # (AUTO) 11.2 10^3/uL (1.5-6.6); NEUTROPHILS % (AUTO) 88.2 %; RED BLOOD COUNT 3.73 10^6/uL (4.20-5.40); RED CELL DISTRIBUTION WIDTH 16.1 % (12.0-15.0); UNCORRECTED WHITE BLOOD COUNT 12.7 x10^3/uL; WHITE BLOOD COUNT 12.7 x10^3/uL (4.8-10.8)
[2017-03-08 20:11] LABS: ALBUMIN/GLOBULIN RATIO 1.1 (1.0-2.2); BILIRUBIN,TOTAL 0.6 mg/dL (0.2-1.0); CALCIUM 8.6 mg/dL (8.5-10.3); CREATININE 0.4 mg/dL (0.4-1.0); POTASSIUM 3.7 mmol/L (3.5-5.0); TOTAL PROTEIN 6.4 g/dL (6.7-8.2)
[2017-03-08] MEDS ORDERED: IOPAMIDOL-300 100 ML VIAL IVP ONE (23:37)
[2017-03-09] MEDS ORDERED: PROMETHAZINE 25 MG/1 ML VIAL IM PRN (00:11)
[2017-03-09] MEDS ORDERED: PROCHLORPERAZINE 10 MG/2 ML VIAL IVP PRN (00:11)
[2017-03-09] MEDS ORDERED: ACETAMINOPHEN 325 MG TABLET PO PRN (00:11)
[2017-03-09] MEDS ORDERED: METOCLOPRAMIDE 10 MG/2 ML VIAL IVP PRN (00:11)
[2017-03-09] MEDS ORDERED: LABETALOL 20 MG/4 ML SYRINGE IVP STA (00:11)
--- NOTE | 2017-03-09 00:11 | CT Preliminary Report ---
Exam: CT Abdomen/Pelvis W/ IMPRESSION: 1. Dilated small bowel loops with air-fluid levels and decompressed distal loops suggesting bowel obs truction. Possible transition zone in the pelvis superior to the urinary bladder where there are some mildly thickened small bowel loops. 2. Small presacral air and fluid collection measuring 1.9 x 1.7 cm, similar compared with the prior C T. 3. Right middle lobe and right lower lobe pulmonary nodules measuring up to 1.9 x 1.9 cm. 4. Small bilateral indeterminate adrenal nodules are unchanged. [facility] SITE ID: [id number]
--- NOTE | 2017-03-09 00:14 | CT Report ---
EXAM: CT ABDOMEN AND PELVIS EXAM DATE: 03/08/2017 11:44 PM. CLINICAL HISTORY: Abdominal pain and vomiting. Status post colectomy. COMPARISONS: 02/15/2017. TECHNIQUE: Routine helical CT imaging was performed through the abdomen and pelvis. IV contrast: Padmaja onic. Enteric contrast: No. Reconstructions: Coronal and sagittal. In accordance with CT protocol optimization, one or more of the following dose reduction techniques w ere utilized for this exam: automated exposure control, adjustment of mA and/or KV based on patient s ize, or use of iterative reconstructive technique. FINDINGS: Lung Bases: Right middle lobe and right lower lobe pulmonary nodules measuring up to 1.9 x 1.9 cm. Co ronary artery calcifications. Small hiatal hernia. Liver: No focal lesion identified. Gallbladder/Bile Ducts: Unremarkable. Spleen: Normal. Pancreas: Normal. Adrenal Glands: Small bilateral indeterminate adrenal nodules are unchanged. Kidneys: No masses are seen. Possible mild left hydronephrosis. Peritoneal Cavity/Bowel: Postoperative changes. Left lower quadrant colostomy. Dilated small bowel lo ops with air-fluid levels and decompressed distal loops, suggesting small bowel obstruction. Mildly t hickened small bowel loops in the pelvis superior to the urinary bladder which may be the transition zone. Appendix is not well seen. No evidence of appendicitis. Small presacral fluid and air collectio n is similar compared with the prior exam, measuring about 1.9 x 1.7 cm. Pelvic Organs: Normal. The bladder and visualized pelvic organs are within normal limits. Vasculature: Moderate atherosclerosis. No aortic aneurysm. Bones: No acute abnormality seen. Other: None. IMPRESSION: 1. Dilated small bowel loops with air-fluid levels and decompressed distal loops suggesting bowel obs truction. Possible transition zone in the pelvis superior to the urinary bladder where there are some mildly thickened small bowel loops. 2. Small presacral air and fluid collection measuring 1.9 x 1.7 cm, similar compared with the prior C T. 3. Right middle lobe and right lower lobe pulmonary nodules measuring up to 1.9 x 1.9 cm. 4. Small bilateral indeterminate adrenal nodules are unchanged. [facility] Referring Provider Line: [phone] SITE ID: [id number]
[2017-03-09] MEDS ORDERED: LABETALOL 20 MG/4 ML SYRINGE IVP PRN (00:18)
[2017-03-09] MEDS ORDERED: HYDROmorphone 1 MG/ML SYRINGE IVP STA (00:28)
[2017-03-09] MEDS: fentaNYL 50 MCG PATCH TOP SCH (01:40)
[2017-03-09] MEDS: ONDANSETRON 4 MG/2 ML VIAL IVP PRN (01:40)
[2017-03-09] MEDS: SODIUM CHLORIDE FLUSH 0.9% 10 ML SYRINGE IVP PRN ×3 (01:40→11:08)
[2017-03-09] MEDS: fentaNYL 12 MCG PATCH TOP SCH (01:40)
[2017-03-09] MEDS: SODIUM CHLORIDE 0.9% 1,000 ML IV SCH ×3 (01:40→20:22)
[2017-03-09] MEDS: ENALAPRILAT 1.25 MG/ML VIAL IVP SCH ×2 (02:00→06:48)
--- NOTE | 2017-03-09 02:11 | HISTORY & PHYSICAL EXAMINATION ---
Chief Complaint - Chief Complaint Chief Complaint: Abdominal Pain History of Present Illness - Admitted From Admitted From:: Emergency Department - History Obtained From Records Reviewed: Yes History obtained from: Patient and medical records Exam Limitations: Patient in severe pain and distress - History of Present Illness HPI Comment/Other: The patient is an 81-year-old female with a past medical history significant for stage IV colon cancer with recurrent disease at the anastomosis, status post debulking and colostomy, currently receiving radiation therapy, status post chemotherapy, history of paroxysmal A. fib, history of anemia, history of hypertension and history of severe obstipation related to opioids who presented to the emergency department with a chief complaint of abdominal pain. The patient was just discharged from the hospital on 03-07-17 after hospitalization for intractable vomiting and abdominal pain. The patient states that she was feeling much better and went to radiation on 03/08/2017. She states that she tolerated radiation well and was feeling well until 3:30 this afternoon. The patient states that she ate a bowel of ice cream after which she began having severe abdominal pain. She states that she then began having nausea and had persistent vomiting. The patient states that she took her pain medications but could not keep them down and continued to have severe pain and could not stop the vomiting therefore she came into the emergency department. The patient denies any fevers or chills. She denies any chest pain. Patient has chronic constipation. On presentation to the emergency department the patient was afebrile and her vital signs were stable aside from being very hypertensive. The patient also had persistent nausea vomiting and was in severe pain. Despite several doses of IV Dilaudid the patient's pain persisted. On examination the patient had significant tenderness and guarding. She also had increased abdominal distention. The patient's labs did reveal a leukocytosis.CT abdomen was done in the emergency department and showed dilated small bowel loops with air-fluid levels and decompressed distal loops suggesting bowel obstruction. Possible transition zone in the pelvis superior to the urinary bladder where there are some mildly thickened small bowel loops. Dr. Hernandez the emergency room physician spoke with the surgeon on-call Dr. Cohn. Dr. Cohn recommended that an NG tube be placed to suction and he stated that the patient would not be a surgical candidate given her metastatic colon cancer. Patient was admitted for small bowel obstruction to be treated medically. Review of Systems - Constitutional Constitutional: reports: Weakness, Poor appetite, Weight loss. denies: Fatigue , Fever, Chills, Malaise - Eyes Eyes: denies: Pain, Irritation, Amaurosis, Blurred vision, Spots in vision, Field loss, Vision loss, Dipolpia, Corrective lenses, Other - Ears, Nose & Throat Ears, Nose & Throat: denies: Ear pain, Hearing loss, Hearing aids, Tinnitus, Vertigo, Nasal pain, Nasal discharge, Nosebleeds, Nasal obstruction, Nasal congestion, Postnasal drainage, Dentures, Sore throat, Hoarseness, Mouth lesions , Bleeding gums, Dental decay, Dental pain, Other - Cardiovascular Cariovascular: denies: Irregular heart rate, Palpitations, Chest pain, Edema, Lightheadedness, Syncope, Exertional dyspnea, Decr. exercise tolerance, Orthopnea, Other - Respiratory Respiratory: denies: Cough, Sputum production, Wheezing, Snoring, Hemoptysis, Orthopnea, SOB at rest, SOB with exertion, Apnea, Stridor, Pleuritic pain, Other - Gastrointestinal Gastrointestinal: reports: Abdominal pain, Abdominal distention, Constipation, Nausea, Vomiting, Poor appetite - Genitourinary Genitourinary: denies: Dysuria, Frequency, Urgency, Hematuria, Incontinence, Flank pain, Nocturia, Urethral discharge, Sexual dysfunction, Other - Musculoskeletal Musculoskeletal: denies: Muscle pain, Back pain, Muscle aches, Stiffness, Limited range of motion, Muscle weakness, Gout, Joint pain, Joint swelling, Other - Integumentary Integumentary: denies: Rash, Pruritis, Lesions, Dryness, Lumps, Acne, Pigment changes, Nail changes, Hair changes, Other - Neurological Neurological: reports: General weakness. denies: Focal weakness, Headache, Dizziness, Numbness, Memory problems, Pre-existing deficit, Abnormal gait, Seizures, Slurred speech - Psychiatric Psychiatric: denies: Depression, Anxiety, Suicidal - Endocrine Endocrine: denies: Polyuria, Polydypsia, Polyphagia, Intolerance to cold, Intolerance to heat, Other - Hematologic/Lymphatic Hematologic/Lymphatic: denies: Anemia, Bruising, Petechiae, Lymphadenopathy History - Past Medical History Cardiovascular: reports: Hypertension, Atrial fibrillation (Paroxysmal) Respiratory: reports: None Endocrine/Autoimmune: reports: None GI: reports: GERD, Chronic constipation, Other (Metastatic Colon Cancer) : reports: None HEENT: reports: Chronic hearing loss Psych: reports: None Musculoskeletal: reports: None Derm: reports: None MRSA Hx?: No Other Past Medical History: Anemia - Past Surgical History General: reports: Colonoscopy, 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: reports: Oophrectomy HEENT: reports: Cataracts - Family & Social History Family History Comment/Other: Patient was adopted Living arrangement: At home Living Situation: With friend(s) (Kathleen Carvajal (GAIL)) Social History Notes: Patient is - Substance History Use: Uses substance without health or social issues: NONE - POLST Patient has POLST: No POLST Status: DNR Meds/Allgy - Home Medications Home Medications: Ambulatory Orders Medication Instructions Recorded Confirmed Lisinopril 10 mg PO DAILY 01/21/17 03/06/17 fentaNYL 50 MCG PATCH [Duragesic 1 patch TOP Q72H 01/21/17 03/06/17 50mcg patch] Ondansetron Odt [Zofran Odt] 4 mg SL Q4HR PRN 30 Days 01/24/17 03/06/17 Senna [Senokot] 8.6 mg PO BID 02/15/17 03/06/17 Fentanyl [Fentanyl 12mcg patch] 1 patch TOP Q72H 03/06/17 03/06/17 HYDROmorphone [Dilaudid] 2 mg PO Q3H PRN 03/06/17 03/06/17 - Allergies Allergies/Adverse Reactions: Allergies Allergy/AdvReac Type Severity Reaction Status Date / Time No Known Drug Allergies Allergy Verified 03/08/17 18:10 Exam - Vital Signs Reviewed Vital Signs: Yes Vital Signs: Vital Signs x48h Pulse Pulse Resp BP BP Pulse Ox 03/09/17 02:00 69 17 156/65 H 100 03/09/17 00:56 71 17 148/62 H 97 03/09/17 00:51 71 17 135/60 H 97 03/09/17 00:43 70 17 156/74 H 96 03/09/17 00:40 64 17 155/66 H 96 03/09/17 00:37 81 18 211/88 H 98 - Physical Exam General Appearance: positive: Severe distress (patient in severe abdominal pain , cannot even talk to me secondry to the pain, she is begging for more pain meds as soon as possible.), Other (Appears cachectic, weak, fatigued and frail) Eyes Bilateral: positive: Normal inspection, PERRL, EOMI, No lid inflammation, Conjunctivae nml, No scleral icterus ENT: positive: ENT inspection nml, Pharynx nml, Dry mucous membranes, Other ( Alopecia). negative: Purulent nasal drainage, Pharyngeal erythema, Oral lesions Neck: positive: Nml inspection, Thyroid nml, No JVD, Trachea midline. negative : Thyromegaly, Lymphadenopathy (R), Lymphadenopathy (L) Respiratory: positive: Chest non-tender, No respiratory distress, Breath sounds nml, Other (Left upper chest wall there is a port). negative: Wheezes, Rales, Rhonchi Cardiovascular: positive: Regular rate & rhythm, No murmur, No gallop Peripheral Pulses: positive: 2+ Abdomen: positive: Tenderness (diffuse), Guarding, Mass, Other (Abdomen distended, decreased bowel sounds) Back: positive: Nml inspection Skin: positive: No rash, Dry, Pallor Extremities: positive: Non-tender, Full ROM, Nml appearance, No pedal edema Neurologic/Psychiatric: positive: Oriented x3, CN's nml (2-12), Motor nml, Sensation nml Conclusion/Plan - Problem List (1) Small bowel obstruction Conclusion/Plan: The patient presented with sudden onset abdominal pain after eating ice cream. She also began vomiting and has had persistent vomiting since. CT abd/pelvis shows small bowel obstruction with possible transition in the pelvis superior to the urinary bladder. Pain poorly controlled despite dilaudid IV in the ER Likely cause of obstruction is adhesions vs mass Plan: Medical management Surgery spoken to in the ED and would not operate given patients metastatic colon ca NPO IVFs IV pain meds IV antiemetics NG tube to suction Monitor If no improvement with conservative treatment will need to consider hospice unless Surgery would re-consider at that point (2) Intractable vomiting Conclusion/Plan: patient has intractable vomiting secondary to bowel obstruction and severe pain Plan: IV zofran, compazine, phenergan IM and reglan prn IVFs Pain control Ativan prn electrolyte monitoring and replacement Qualifiers: Vomiting type: unspecified Nausea presence: with nausea Qualified Code(s) : R11.2 - Nausea with vomiting, unspecified (3) HTN (hypertension) Conclusion/Plan: Very elevated in the ED with SBP >200 This appeared to be related to patients severe pain IV vasotec q6 Given IV labetolol on arrival to floor with improvement in BP Qualifiers: Hypertension type: essential hypertension Qualified Code(s): I10 - Essential (primary) hypertension (4) Chronic pain Conclusion/Plan: Patient has chronic pain secondary to metastatic cancer But presents with acute on chronic pain Will continue fentanyl patch and change PO to IV dilaudid Monitor closely as pain very uncontrolled in the ED (5) Colon cancer Conclusion/Plan: Stage IV Radiation yesterday presenting with SBO If not improving from obstruction with medical management will need to consider palliative care or hospice DNR/DNI Qualifiers: (6) Obstipation Conclusion/Plan: Secondary to chronic opiates Will be worse with SBO Aggressive bowel regimen (7) Atrial fibrillation Conclusion/Plan: Rate is currently stable On PO dilt at home Will give IV lopressor or Dilt if needed Monitor Qualifiers: - Lab Results Lab results reviewed: Yes Jovani Bones: 03/08/17 19:53 03/08/17 19:53 - Diagnostic Imaging Results Diagnostic Imaging Results: positive: Final report reviewed - EKG Results EKG Interpreted Independently: Yes Issues/Core Measures - Anticipated LOS Anticipated Stay Length: 2 or more midnights - Issues Hospital Issues and Management Plan: If patient not improving with medical treatment will need palliative care and possibly hospice. - DVT/VTE - Prophylaxis VTE/DVT Prophylaxis med ordered at admit?: Yes
[2017-03-09] MEDS: HYDROmorphone 1 MG/ML SYRINGE IVP PRN ×6 (05:00→20:29)
[2017-03-09] MEDS: SODIUM CHLORIDE FLUSH 0.9% 10 ML SYRINGE IVP SCH ×3 (06:42→20:34)
[2017-03-09 06:48] LABS: BASOPHILS # (AUTO) 0.1 10^3/uL (0.0-0.1); BASOPHILS % (AUTO) 0.5 %; EOSINOPHILS % (AUTO) 0.4 %; HCT - HEMATOCRIT 32.9 % (37.0-47.0); HGB - HEMOGLOBIN 10.9 g/dL (12.0-16.0); LYMPHOCYTES # (AUTO) 0.8 10^3/uL (1.5-3.5); LYMPHOCYTES % (AUTO) 6.7 %; MEAN CORPUSCULAR HEMOGLOBIN 29.8 pg (27.0-31.0); MEAN CORPUSCULAR HGB CONC 33.1 g/dL (32.0-36.0); MEAN CORPUSCULAR VOLUME 89.8 fL (81.0-99.0); MEAN PLATELET VOLUME 6.4 fL (7.9-10.8); MONOCYTES # (AUTO) 0.8 10^3/uL (0.0-1.0); MONOCYTES % (AUTO) 7.2 %; NEUTROPHILS # (AUTO) 9.9 10^3/uL (1.5-6.6); NEUTROPHILS % (AUTO) 85.2 %; RED BLOOD COUNT 3.66 10^6/uL (4.20-5.40); RED CELL DISTRIBUTION WIDTH 16.2 % (12.0-15.0); UNCORRECTED WHITE BLOOD COUNT 11.6 x10^3/uL; WHITE BLOOD COUNT 11.6 x10^3/uL (4.8-10.8)
[2017-03-09 07:00] LABS: BILIRUBIN,TOTAL 0.6 mg/dL (0.2-1.0); CALCIUM 8.2 mg/dL (8.5-10.3); CREATININE 0.4 mg/dL (0.4-1.0); MAGNESIUM 1.8 mg/dL (1.7-2.8); PHOSPHORUS 3.5 mg/dL (2.5-4.6); POTASSIUM 3.5 mmol/L (3.5-5.0)
[2017-03-09] MEDS: ENOXAPARIN 30 MG/0.3 ML SYRINGE SUBQ SCH (08:06)
[2017-03-09] MEDS: FAMOTIDINE 20 MG/50 ML 50 ML IV SCH (08:06)
[2017-03-09] MEDS ORDERED: POLYETHYLENE GLYCOL 3350 17 GM PACKET PO SCH (09:00)
[2017-03-09] MEDS ORDERED: NON FORMULARY MED (Lisinopril [Lisinopril] 10 MG) PO SCH (09:00)
[2017-03-09] MEDS ORDERED: SENNA 8.6 MG TABLET PO SCH (09:00)
[2017-03-09] MEDS ORDERED: PHENOL THROAT SPRAY 177 ML MM PRN (11:45)
--- NOTE | 2017-03-09 12:42 | PROVIDER PROGRESS NOTE ---
Subjective - Prog Note Date Prog Note Date: 03/09/17 Prog Note Time: 12:40 - Subjective Subjective: can I have chocolate ice cream ? what keeps causing this Pain improving since admission Per COLIN Wick output decreasing / just 100 cc out this shift Current Medications - Current Medications Current Medications: Active Medications Generic Name Dose Route Start Last Admin Trade Name Freq PRN Reason Stop Dose Admin Acetaminophen 650 mg 03/09/17 00:11 Tylenol PO Q4HR PRN Pain 1 to 4 Enoxaparin Sodium 30 mg 03/09/17 09:00 03/09/17 08:06 Lovenox SUBQ 30 mg DAILY BLANKA Administration Fentanyl 1 patch 03/09/17 01:00 03/09/17 01:40 Duragesic TOP 1 patch Q72H BLANKA Administration Fentanyl 1 patch 03/09/17 01:00 03/09/17 01:40 Duragesic TOP 1 patch Q72H BLANKA Administration Hydromorphone HCl 1 mg 03/09/17 00:11 03/09/17 12:32 Dilaudid Inj IVP 1 mg Q2HR PRN Administration Pain 8 to 10 Hydromorphone HCl 2 mg 03/09/17 00:10 Dilaudid PO Q3H PRN SEVERE BREAKTHROUGH PAIN Sodium Chloride 1,000 mls @ 100 mls/hr 03/09/17 01:00 03/09/17 11:51 Normal Saline 0.9% IV 100 mls/hr .Q10H BLANKA Administration Famotidine 50 mls @ 100 mls/hr 03/09/17 09:00 03/09/17 08:06 Pepcid 20 Mg/50 Ml IV 100 mls/hr DAILY BLANKA Administration Metoclopramide HCl 5 mg 03/09/17 00:11 Reglan Inj IVP Q6HR PRN Nausea / Vomiting Ondansetron HCl 4 mg 03/09/17 00:11 03/09/17 01:40 Zofran Inj IVP 4 mg Q6HR PRN Administration Nausea / Vomiting Phenol/Menthol 1 - 2 sprays 03/09/17 11:45 03/09/17 11:50 Chloraseptic MM 1 sprays PRN PRN Administration Mouth Sore Pain Prochlorperazine Edisylate 10 mg 03/09/17 00:11 03/09/17 08:06 Compazine Inj IVP 10 mg Q6HR PRN Administration Nausea / Vomiting Promethazine HCl 25 mg 03/09/17 00:11 Phenergan Inj IM Q6HR PRN Nausea / Vomiting Sodium Chloride 10 ml 03/09/17 00:11 03/09/17 11:08 Normal Saline Flush 0.9% IVP 10 ml PRN PRN Administration NEEDED PER PROVIDER ORDERS Sodium Chloride 10 ml 03/09/17 06:00 03/09/17 12:32 Normal Saline Flush 0.9% IVP 10 ml Q8HR BLANKA Administration Lisinopril 10 mg PO DAILY 01/21/17 fentaNYL 50 MCG PATCH [Duragesic 50mcg patch] 1 patch TOP Q72H 01/21/17 Senna [Senokot] 8.6 mg PO BID 02/15/17 Fentanyl [Fentanyl 12mcg patch] 1 patch TOP Q72H 03/06/17 HYDROmorphone [Dilaudid] 2 mg PO Q3H PRN 03/06/17 Objective - Vital Signs/Intake & Output Reviewed Vital Signs: Yes Vital Signs: Vital Signs x48h Temp Pulse Pulse Resp BP Pulse Ox 03/09/17 09:00 37.1 C 71 16 120/59 L 100 03/09/17 07:45 78 109/59 L 03/09/17 07:30 72 118/58 L 03/09/17 07:15 74 132/67 H 03/09/17 07:00 82 136/67 H 03/09/17 06:55 71 114/56 L 03/09/17 06:50 72 116/57 L 03/09/17 06:49 75 125/62 Intake & Output: Intake & Output 03/06/17 03/07/17 03/08/17 03/09/17 23:59 23:59 23:59 23:59 Intake Total 522 Output Total 575 Balance -53 - Objective General Appearance: positive: Other (frail appearing but spunky when awake ( sleeping first 2 x I went to see her, but awake now after noon. Looks comfortable, frustrated that this "happened again" Explained this is different than the opiate induced obstipation a few wks ago) Eyes Bilateral: positive: PERRL, EOMI ENT: positive: Other (using chloraseptic spray (RN just got) for throat pain from NG, NG in place) Respiratory: positive: No respiratory distress, Breath sounds nml, Other ( infusaport Left chest/ very prominent ribs) Cardiovascular: positive: Regular rate & rhythm, No murmur, Other (no edema) Abdomen: positive: Other (Active bowel sounds now , Abdomen now flat (was distended on presentation, and only very hypoactive BS this morning per RN). Pain much improved. NG w/ nearly 500 cc (but as above slower output). No new stool or flatus in ostomy) Skin: positive: Warm, Dry Extremities: positive: No pedal edema Neurologic/Psychiatric: positive: Oriented x3, Mood/affect nml (frustrated, but alert, animated) - Lab Results Fish Bones: 03/10/17 05:10 03/10/17 05:10 Other Labs: Lab Results x24hrs 03/09/17 03/09/17 03/09/17 Range/Units 06:35 06:35 06:35 WBC 11.6 H (4.8-10.8) x10^3/uL RBC 3.66 L (4.20-5.40) 10^6/uL Hgb 10.9 L (12.0-16.0) g/dL Hct 32.9 L (37.0-47.0) % MCV 89.8 (81.0-99.0) fL MCH 29.8 (27.0-31.0) pg MCHC 33.1 (32.0-36.0) g/dL RDW 16.2 H (12.0-15.0) % Plt Count 436 (130-450) 10^3/uL MPV 6.4 L (7.9-10.8) fL Neut # 9.9 H (1.5-6.6) 10^3/uL Lymph # 0.8 L (1.5-3.5) 10^3/uL [place] # 0.8 (0.0-1.0) 10^3/uL Eos # 0.0 (0.0-0.7) 10^3/uL Baso # 0.1 (0.0-0.1) 10^3/uL Absolute Nucleated RBC 0.00 x10^3/uL Nucleated RBCs 0.0 /100WBC Sodium 127 L (135-145) mmol/L Potassium 3.5 (3.5-5.0) mmol/L Chloride 95 L (101-111) mmol/L Carbon Dioxide 24 (21-32) mmol/L Anion Gap 8.0 (6-13) BUN 10 (6-20) mg/dL Creatinine 0.4 (0.4-1.0) mg/dL Estimated GFR (MDRD) 154 (>89) Glucose 122 H (70-100) mg/dL Lactic Acid 1.6 (0.5-2.2) mmol/L Calcium 8.2 L (8.5-10.3) mg/dL Phosphorus 3.5 (2.5-4.6) mg/dL Magnesium 1.8 (1.7-2.8) mg/dL Total Bilirubin 0.6 (0.2-1.0) mg/dL AST 17 (10-42) IU/L ALT 10 (10-60) IU/L Alkaline Phosphatase 65 (42-121) IU/L Total Protein 6.0 L (6.7-8.2) g/dL Albumin 3.0 L (3.2-5.5) g/dL Globulin 3.0 (2.1-4.2) g/dL Albumin/Globulin Ratio 1.0 (1.0-2.2) Assessment/Plan - Problem List (1) Small bowel obstruction Impression: Her presentation 2 days ago was likely already a self limited SBO (improved overnight w/ NPO, no suction, and tolerating PO, but her description of pain followed by emesis the next morning was suspect for possible incipient obstruction given her Abd surgeries, CA, and XRT) + SBO, with [facility] transition point on CT already decompressing nicely , pain improving, reduced NG output bowel sounds increasing hopefully will see stool outpt soon continue NPO today prn antiemetic, (but the decompression was the main thing she needed for the nausea) If still here saturday will contact Viviana Miranda who knows her well, change goal to ? hospice vs proceed w/ final XRT (as noted this SBO is improving but at risk for recurrence/not surgical candidate) Would be nice if this is self limited w/ decompression w/ NGT (since no surgery per Dr Ferrell) , but certainly at risk for recurrence (2) HTN (hypertension) Impression: much improved r/t pain stop prn enalpril and prn labetalol Qualifiers: Hypertension type: essential hypertension Qualified Code(s): I10 - Essential (primary) hypertension (3) Chronic pain Impression: related to malignancy and LAR (usually has rectal area pain) continue fentanyl patch prn dilaudid for acute pain of SBO, but that pain is already improving Once obstruction resolved (hopefully) , will resume bowel regimen (4) Paroxysmal SVT (supraventricular tachycardia) Impression: per prior hx Viviana miranda indicated that Sarahy keeps stopping her diltiazem No SVT on tele. prn dilt if needed stopping tele (which was for the prn enalapril/labetalol which she does not need )
[2017-03-10] MEDS: HYDROmorphone 1 MG/ML SYRINGE IVP PRN ×4 (05:06→21:56)
[2017-03-10] MEDS: SODIUM CHLORIDE FLUSH 0.9% 10 ML SYRINGE IVP SCH ×3 (05:15→23:12)
[2017-03-10 05:52] LABS: BASOPHILS # (AUTO) 0.1 10^3/uL (0.0-0.1); BASOPHILS % (AUTO) 0.9 %; EOSINOPHILS # (AUTO) 0.5 10^3/uL (0.0-0.7); EOSINOPHILS % (AUTO) 6.8 %; HGB - HEMOGLOBIN 9.6 g/dL (12.0-16.0); LYMPHOCYTES # (AUTO) 0.8 10^3/uL (1.5-3.5); LYMPHOCYTES % (AUTO) 10.3 %; MEAN CORPUSCULAR HEMOGLOBIN 30.1 pg (27.0-31.0); MEAN CORPUSCULAR VOLUME 91.3 fL (81.0-99.0); MEAN PLATELET VOLUME 6.5 fL (7.9-10.8); MONOCYTES # (AUTO) 0.7 10^3/uL (0.0-1.0); NEUTROPHILS # (AUTO) 5.6 10^3/uL (1.5-6.6); NUCLEATED RED BLOOD CELLS AUTO 0.1 /100WBC; RED BLOOD COUNT 3.18 10^6/uL (4.20-5.40); RED CELL DISTRIBUTION WIDTH 15.8 % (12.0-15.0); UNCORRECTED WHITE BLOOD COUNT 7.6 x10^3/uL; WHITE BLOOD COUNT 7.6 x10^3/uL (4.8-10.8)
[2017-03-10] MEDS: SODIUM CHLORIDE 0.9% 1,000 ML IV SCH (06:02)
[2017-03-10 06:05] LABS: ALBUMIN/GLOBULIN RATIO 1.2 (1.0-2.2); BILIRUBIN,TOTAL 0.8 mg/dL (0.2-1.0); BUN - BLOOD UREA NITROGEN 11 mg/dL (6-20); CALCIUM 8.1 mg/dL (8.5-10.3); CARBON DIOXIDE - CO2 25 mmol/L (21-32); CHLORIDE 103 mmol/L (101-111); CREATININE 0.4 mg/dL (0.4-1.0); GFR - MDRD 154 (>89); GLUCOSE 91 mg/dL (70-100); MAGNESIUM 1.9 mg/dL (1.7-2.8); PHOSPHORUS 3.6 mg/dL (2.5-4.6); POTASSIUM 3.6 mmol/L (3.5-5.0); SODIUM 134 mmol/L (135-145); TOTAL PROTEIN 5.1 g/dL (6.7-8.2)
[2017-03-10] MEDS: FAMOTIDINE 20 MG/50 ML 50 ML IV SCH (08:57)
[2017-03-10] MEDS: ENOXAPARIN 30 MG/0.3 ML SYRINGE SUBQ SCH (08:57)
[2017-03-10] MEDS ORDERED: BENZOCAINE/MENTHOL LOZENGE MM PRN (12:46)
--- NOTE | 2017-03-10 14:49 | PROVIDER PROGRESS NOTE ---
Subjective - Prog Note Date Prog Note Date: 03/10/17 Prog Note Time: 14:47 (late entry, seen ~7:30am) - Subjective Subjective: "its so weird", nothing was coming out (NGT), and I just saw a bunch of stuff go by Abdominal pain improved alot, still mild lower abdomen discomfort , no cramping She DID release some air (i.e. flatus) from her ostomy bag last night "my breathings fine, my hearts fine, its just this" interested in cepacol in addition to the chloraseptic spray for her sore throat (from NG) Current Medications - Current Medications Current Medications: Active Medications Generic Name Dose Route Start Last Admin Trade Name Freq PRN Reason Stop Dose Admin Acetaminophen 650 mg 03/09/17 00:11 Tylenol PO Q4HR PRN Pain 1 to 4 Enoxaparin Sodium 30 mg 03/09/17 09:00 03/10/17 08:57 Lovenox SUBQ 30 mg DAILY BLANKA Administration Fentanyl 1 patch 03/09/17 01:00 03/09/17 01:40 Duragesic TOP 1 patch Q72H BLANKA Administration Fentanyl 1 patch 03/09/17 01:00 03/09/17 01:40 Duragesic TOP 1 patch Q72H BLANKA Administration Hydromorphone HCl 1 mg 03/09/17 00:11 03/10/17 12:53 Dilaudid Inj IVP 1 mg Q2HR PRN Administration Pain 8 to 10 Hydromorphone HCl 2 mg 03/09/17 00:10 Dilaudid PO Q3H PRN SEVERE BREAKTHROUGH PAIN Sodium Chloride 1,000 mls @ 100 mls/hr 03/09/17 01:00 03/10/17 06:02 Normal Saline 0.9% IV 100 mls/hr .Q10H BLANKA Administration Famotidine 50 mls @ 100 mls/hr 03/09/17 09:00 03/10/17 08:57 Pepcid 20 Mg/50 Ml IV 100 mls/hr DAILY BLANKA Administration Metoclopramide HCl 5 mg 03/09/17 00:11 Reglan Inj IVP Q6HR PRN Nausea / Vomiting Ondansetron HCl 4 mg 03/09/17 00:11 03/09/17 01:40 Zofran Inj IVP 4 mg Q6HR PRN Administration Nausea / Vomiting Phenol/Menthol 1 - 2 sprays 03/09/17 11:45 03/09/17 11:50 Chloraseptic MM 1 sprays PRN PRN Administration Mouth Sore Pain Prochlorperazine Edisylate 10 mg 03/09/17 00:11 03/09/17 08:06 Compazine Inj IVP 10 mg Q6HR PRN Administration Nausea / Vomiting Promethazine HCl 25 mg 03/09/17 00:11 Phenergan Inj IM Q6HR PRN Nausea / Vomiting Sodium Chloride 10 ml 03/09/17 00:11 03/09/17 11:08 Normal Saline Flush 0.9% IVP 10 ml PRN PRN Administration NEEDED PER PROVIDER ORDERS Sodium Chloride 10 ml 03/09/17 06:00 03/10/17 05:15 Normal Saline Flush 0.9% IVP 10 ml Q8HR BLANKA Administration Throat Lozenges 1 lozenge 03/10/17 12:46 03/10/17 12:53 Cepacol MM 1 lozenge Q2HR PRN Administration Mouth Sore Pain Lisinopril 10 mg PO DAILY 01/21/17 fentaNYL 50 MCG PATCH [Duragesic 50mcg patch] 1 patch TOP Q72H 01/21/17 Senna [Senokot] 8.6 mg PO BID 02/15/17 Fentanyl [Fentanyl 12mcg patch] 1 patch TOP Q72H 03/06/17 HYDROmorphone [Dilaudid] 2 mg PO Q3H PRN 03/06/17 Objective - Vital Signs/Intake & Output Reviewed Vital Signs: Yes Vital Signs: Vital Signs x48h Temp Pulse Resp BP Pulse Ox 03/10/17 09:24 36.8 C 70 16 161/70 H 98 Intake & Output: Intake & Output 03/07/17 03/08/17 03/09/17 03/10/17 23:59 23:59 23:59 23:59 Intake Total 4227 873 Output Total 975 150 Balance 1082 723 Looking at NG vacutainer; 1000ml brown fluid from NG (~ 500cc since I saw midday yesterday) - Objective General Appearance: positive: No acute distress, Other (very petite, frail looking, (but spunky) lying in bed, awake, alert, pleasant, still has her spunk (REALLY would like chocolate ice cream)) Eyes Bilateral: positive: EOMI Respiratory: positive: No respiratory distress, Breath sounds nml. negative: Wheezes, Rales, Rhonchi Cardiovascular: positive: Regular rate & rhythm, Other (infusaport left chest, site nontender) Abdomen: positive: Other (abdomen flat, no evident distension, NG intact, with as per I/O ~ 1000 cc total in vacutainer. 500 since yesterrday She DOES have bowel sounds, no localized tenderness. She emptied flatus once yesterday. Bag currently flat, no new stool) Skin: positive: Warm, Dry Neurologic/Psychiatric: positive: Oriented x3 - Lab Results Fish Bones: 03/10/17 05:10 03/10/17 05:10 Other Labs: Lab Results x24hrs 03/10/17 03/10/17 Range/Units 05:10 05:10 WBC 7.6 (4.8-10.8) x10^3/uL RBC 3.18 L (4.20-5.40) 10^6/uL Hgb 9.6 L (12.0-16.0) g/dL Hct 29.0 L (37.0-47.0) % MCV 91.3 (81.0-99.0) fL MCH 30.1 (27.0-31.0) pg MCHC 33.0 (32.0-36.0) g/dL RDW 15.8 H (12.0-15.0) % Plt Count 381 (130-450) 10^3/uL MPV 6.5 L (7.9-10.8) fL Neut # 5.6 (1.5-6.6) 10^3/uL Lymph # 0.8 L (1.5-3.5) 10^3/uL [place] # 0.7 (0.0-1.0) 10^3/uL Eos # 0.5 (0.0-0.7) 10^3/uL Baso # 0.1 (0.0-0.1) 10^3/uL Absolute Nucleated RBC 0.01 x10^3/uL Nucleated RBCs 0.1 /100WBC Sodium 134 L (135-145) mmol/L Potassium 3.6 (3.5-5.0) mmol/L Chloride 103 (101-111) mmol/L Carbon Dioxide 25 (21-32) mmol/L Anion Gap 6.0 (6-13) BUN 11 (6-20) mg/dL Creatinine 0.4 (0.4-1.0) mg/dL Estimated GFR (MDRD) 154 (>89) Glucose 91 (70-100) mg/dL Calcium 8.1 L (8.5-10.3) mg/dL Phosphorus 3.6 (2.5-4.6) mg/dL Magnesium 1.9 (1.7-2.8) mg/dL Total Bilirubin 0.8 (0.2-1.0) mg/dL AST 12 (10-42) IU/L ALT < 10 L (10-60) IU/L Alkaline Phosphatase 56 (42-121) IU/L Total Protein 5.1 L (6.7-8.2) g/dL Albumin 2.8 L (3.2-5.5) g/dL Globulin 2.3 (2.1-4.2) g/dL Albumin/Globulin Ratio 1.2 (1.0-2.2) Assessment/Plan - Problem List (1) Small bowel obstruction Impression: 03/10 as noted 03/09 , distension resolved, unfortunately , still alot of NG output , and nominal flatus in ostomy. Pain at least improved. continue NGT to sxn, IVF to replace NG output will change to NS with 20K (considered D51/2Ns + K, but Na still relatively low) Ambulate ! (briefly off NGsuction), She is up motoring around the halls with walker right now. continue serial exams, looking for reduced NG output and ostomy flatus or stool continue cepacol lozenge/ chloraseptic spray for discomfort form NGT (in reviewing med list again, will stop Reglan as usu not recommended in SBO, also d/cing compazine , use zofran (given age) 03/09 Her presentation 2 days ago was likely already a self limited SBO (improved overnight w/ NPO, no suction, and tolerating PO, but her description of pain followed by emesis the next morning was suspect for possible incipient obstruction given her Abd surgeries, CA, and XRT) + SBO, with [facility] transition point on CT already decompressing nicely , pain improving, reduced NG output bowel sounds increasing hopefully will see stool outpt soon continue NPO today prn antiemetic, (but the decompression was the main thing she needed for the nausea) If still here saturday will contact Viviana Miranda who knows her well, change goal to ? hospice vs proceed w/ final XRT (as noted this SBO is improving but at risk for recurrence/not surgical candidate) Would be nice if this is self limited w/ decompression w/ NGT (since no surgery per Dr Ferrell) , but certainly at risk for recurrence (2) HTN (hypertension) Impression: much improved (occas elevation, but no need for IV agent). Will monitor Marked elevation at admit was r/t pain stopped prn enalpril and prn labetalol 03/09 Qualifiers: Hypertension type: essential hypertension Qualified Code(s): I10 - Essential (primary) hypertension (3) Chronic pain Impression: No change 03/10 related to malignancy and LAR (usually has rectal area pain) continue fentanyl patch prn dilaudid for acute pain of SBO, but that pain is already improving Once obstruction resolved (hopefully) , will resume bowel regimen (4) Paroxysmal SVT (supraventricular tachycardia) Impression: per prior hx Viviana miranda indicated that Sarahy keeps stopping her diltiazem No SVT on tele. prn dilt if needed stopping tele (which was for the prn enalapril/labetalol which she does not need ) (2) HTN (hypertension) Qualifiers: Hypertension type: essential hypertension Qualified Code(s): I10 - Essential (primary) hypertension
[2017-03-10] MEDS: NS W/20 MEQ KCL 1,000 ML IV SCH (16:41)
[2017-03-11] MEDS: HYDROmorphone 1 MG/ML SYRINGE IVP PRN ×6 (02:20→21:41)
[2017-03-11] MEDS: NS W/20 MEQ KCL 1,000 ML IV SCH ×3 (04:31→17:56)
[2017-03-11] MEDS: SODIUM CHLORIDE FLUSH 0.9% 10 ML SYRINGE IVP PRN ×3 (04:31→13:22)
[2017-03-11] MEDS: SODIUM CHLORIDE FLUSH 0.9% 10 ML SYRINGE IVP SCH ×3 (04:32→17:05)
[2017-03-11 04:56] LABS: BASOPHILS # (AUTO) 0.1 10^3/uL (0.0-0.1); BASOPHILS % (AUTO) 0.7 %; EOSINOPHILS # (AUTO) 0.3 10^3/uL (0.0-0.7); HCT - HEMATOCRIT 27.6 % (37.0-47.0); HGB - HEMOGLOBIN 9.1 g/dL (12.0-16.0); LYMPHOCYTES # (AUTO) 0.6 10^3/uL (1.5-3.5); LYMPHOCYTES % (AUTO) 5.3 %; MEAN CORPUSCULAR HEMOGLOBIN 30.1 pg (27.0-31.0); MEAN CORPUSCULAR HGB CONC 33.1 g/dL (32.0-36.0); MEAN PLATELET VOLUME 6.4 fL (7.9-10.8); MONOCYTES # (AUTO) 0.8 10^3/uL (0.0-1.0); MONOCYTES % (AUTO) 7.6 %; NEUTROPHILS # (AUTO) 8.6 10^3/uL (1.5-6.6); NEUTROPHILS % (AUTO) 83.4 %; RED BLOOD COUNT 3.04 10^6/uL (4.20-5.40); RED CELL DISTRIBUTION WIDTH 15.5 % (12.0-15.0); UNCORRECTED WHITE BLOOD COUNT 10.3 x10^3/uL; WHITE BLOOD COUNT 10.3 x10^3/uL (4.8-10.8)
[2017-03-11 05:09] LABS: ALBUMIN/GLOBULIN RATIO 1.2 (1.0-2.2); BILIRUBIN,TOTAL 0.9 mg/dL (0.2-1.0); CALCIUM 8.4 mg/dL (8.5-10.3); CREATININE 0.4 mg/dL (0.4-1.0); MAGNESIUM 1.9 mg/dL (1.7-2.8); PHOSPHORUS 3.3 mg/dL (2.5-4.6); POTASSIUM 3.7 mmol/L (3.5-5.0); TOTAL PROTEIN 5.4 g/dL (6.7-8.2)
[2017-03-11] MEDS: ENOXAPARIN 30 MG/0.3 ML SYRINGE SUBQ SCH (08:54)
[2017-03-11] MEDS: FAMOTIDINE 20 MG/50 ML 50 ML IV SCH (08:54)
--- NOTE | 2017-03-11 14:21 | PROVIDER PROGRESS NOTE ---
Subjective - Prog Note Date Prog Note Date: 03/11/17 Prog Note Time: 14:19 - Subjective Pt reports feeling: No change (Would love steak and potatoes, would love ice cream. Still no stool or flatus via ostomy ("swears I smelled a fart" ) but did not burp bag last night (we had asked her to let us know if there was any flatus so we could see.) Pain still much improved (distension resolved)) Current Medications - Current Medications Current Medications: Active Medications Generic Name Dose Route Start Last Admin Trade Name Freq PRN Reason Stop Dose Admin Acetaminophen 650 mg 03/09/17 00:11 Tylenol PO Q4HR PRN Pain 1 to 4 Enoxaparin Sodium 30 mg 03/09/17 09:00 03/11/17 08:54 Lovenox SUBQ 30 mg DAILY BLANKA Administration Fentanyl 1 patch 03/09/17 01:00 03/09/17 01:40 Duragesic TOP 1 patch Q72H BLANKA Administration Fentanyl 1 patch 03/09/17 01:00 03/09/17 01:40 Duragesic TOP 1 patch Q72H BLANKA Administration Hydromorphone HCl 1 mg 03/09/17 00:11 03/11/17 13:22 Dilaudid Inj IVP 1 mg Q2HR PRN Administration Pain 8 to 10 Hydromorphone HCl 2 mg 03/09/17 00:10 Dilaudid PO Q3H PRN SEVERE BREAKTHROUGH PAIN Famotidine 50 mls @ 100 mls/hr 03/09/17 09:00 03/11/17 08:54 Pepcid 20 Mg/50 Ml IV 100 mls/hr DAILY BLANKA Administration Potassium Chloride/Sodium Chloride 1,000 mls @ 100 mls/hr 03/10/17 16:00 13:21 Normal Saline 0.9% W/20 Meq Kcl IV Not Given .Q10H BLANKA Ondansetron HCl 4 mg 03/09/17 00:11 03/09/17 01:40 Zofran Inj IVP 4 mg Q6HR PRN Administration Nausea / Vomiting Phenol/Menthol 1 - 2 sprays 03/09/17 11:45 03/09/17 11:50 Chloraseptic MM 1 sprays PRN PRN Administration Mouth Sore Pain Sodium Chloride 10 ml 03/09/17 00:11 03/11/17 13:22 Normal Saline Flush 0.9% IVP 10 ml PRN PRN Administration NEEDED PER PROVIDER ORDERS Sodium Chloride 10 ml 03/09/17 06:00 03/11/17 04:32 Normal Saline Flush 0.9% IVP 10 ml Q8HR BLANKA Administration Throat Lozenges 1 lozenge 03/10/17 12:46 03/10/17 12:53 Cepacol MM 1 lozenge Q2HR PRN Administration Mouth Sore Pain Lisinopril 10 mg PO DAILY 01/21/17 fentaNYL 50 MCG PATCH [Duragesic 50mcg patch] 1 patch TOP Q72H 01/21/17 Senna [Senokot] 8.6 mg PO BID 02/15/17 Fentanyl [Fentanyl 12mcg patch] 1 patch TOP Q72H 03/06/17 HYDROmorphone [Dilaudid] 2 mg PO Q3H PRN 03/06/17 Objective - Vital Signs/Intake & Output Reviewed Vital Signs: Yes Vital Signs: Vital Signs x48h Temp Pulse Resp BP Pulse Ox 03/11/17 13:27 37.2 C 72 16 171/68 H 98 03/11/17 08:32 36.7 C 118 H 18 170/64 H 84 L Intake & Output: Intake & Output 03/08/17 03/09/17 03/10/17 03/11/17 23:59 23:59 23:59 23:59 Intake Total 2408 1925 639 Output Total 1475 750 900 Balance 933 1175 -261 - Objective General Appearance: positive: No acute distress, Other (frail appearing but animated petite cachectic female, ambulating in halls when NG briefly capped, very insistent she does not need to use the walker (although she did); in solarium doing a puzzle) Respiratory: positive: No respiratory distress Cardiovascular: positive: Regular rate & rhythm Abdomen: positive: Other (abdomen flat, + BS, but bag completely deflated, no flatus, no new stool. 1250 cc from 5/7-5/8 12 am (per I/O NG ~750cc dark biliousoutput in vacutainer this am, minimal abdominal pain) Skin: positive: Warm, Dry Extremities: positive: No pedal edema, Pedal edema Neurologic/Psychiatric: positive: Oriented x3, Mood/affect nml (animated) - Lab Results Fish Bones: 03/11/17 04:38 03/11/17 04:38 Other Labs: Lab Results x24hrs 03/11/17 03/11/17 Range/Units 04:38 04:38 WBC 10.3 (4.8-10.8) x10^3/uL RBC 3.04 L (4.20-5.40) 10^6/uL Hgb 9.1 L (12.0-16.0) g/dL Hct 27.6 L (37.0-47.0) % MCV 91.0 (81.0-99.0) fL MCH 30.1 (27.0-31.0) pg MCHC 33.1 (32.0-36.0) g/dL RDW 15.5 H (12.0-15.0) % Plt Count 359 (130-450) 10^3/uL MPV 6.4 L (7.9-10.8) fL Neut # 8.6 H (1.5-6.6) 10^3/uL Lymph # 0.6 L (1.5-3.5) 10^3/uL [place] # 0.8 (0.0-1.0) 10^3/uL Eos # 0.3 (0.0-0.7) 10^3/uL Baso # 0.1 (0.0-0.1) 10^3/uL Absolute Nucleated RBC 0.00 x10^3/uL Nucleated RBCs 0.0 /100WBC Sodium 137 (135-145) mmol/L Potassium 3.7 (3.5-5.0) mmol/L Chloride 105 (101-111) mmol/L Carbon Dioxide 25 (21-32) mmol/L Anion Gap 7.0 (6-13) BUN 18 (6-20) mg/dL Creatinine 0.4 (0.4-1.0) mg/dL Estimated GFR (MDRD) 154 (>89) Glucose 74 (70-100) mg/dL Calcium 8.4 L (8.5-10.3) mg/dL Phosphorus 3.3 (2.5-4.6) mg/dL Magnesium 1.9 (1.7-2.8) mg/dL Total Bilirubin 0.9 (0.2-1.0) mg/dL AST 12 (10-42) IU/L ALT 10 (10-60) IU/L Alkaline Phosphatase 60 (42-121) IU/L Total Protein 5.4 L (6.7-8.2) g/dL Albumin 2.9 L (3.2-5.5) g/dL Globulin 2.5 (2.1-4.2) g/dL Albumin/Globulin Ratio 1.2 (1.0-2.2) Assessment/Plan - Problem List (1) Small bowel obstruction Impression: Small bowel obstruction Impression: 03/11: unfortunately still large volume drainage via NG and no forward movement although much decompressed and + bowel sounds. Since nearing day 3 of NG decompression, although still hopeful she may open up (no plans for surgical NORMA/ lap) , will contact Dr. Ferrell if decompressive/ palliative PEG would be considered so she could at least take some PO ( obviously not steak and potatoes). Viviana Miranda aware as well. (Dr. Ferrell said he will see tomorrow/ but unlikley PEG candidate) 03/10 as noted 03/09 , distension resolved, unfortunately , still alot of NG output , and nominal flatus in ostomy. Pain at least improved. continue NGT to sxn, IVF to replace NG output will change to NS with 20K (considered D51/2Ns + K, but Na still relatively low) Ambulate ! (briefly off NGsuction), She is up motoring around the halls with walker right now. continue serial exams, looking for reduced NG output and ostomy flatus or stool continue cepacol lozenge/ chloraseptic spray for discomfort form NGT (in reviewing med list again, will stop Reglan as usu not recommended in SBO, also d/cing compazine , use zofran (given age) 03/09 Her presentation 2 days ago was likely already a self limited SBO (improved overnight w/ NPO, no suction, and tolerating PO, but her description of pain followed by emesis the next morning was suspect for possible incipient obstruction given her Abd surgeries, CA, and XRT) + SBO, with [facility] transition point on CT already decompressing nicely , pain improving, reduced NG output bowel sounds increasing hopefully will see stool outpt soon continue NPO today prn antiemetic, (but the decompression was the main thing she needed for the nausea) If still here saturday will contact Viviana Miranda who knows her well, change goal to ? hospice vs proceed w/ final XRT (as noted this SBO is improving but at risk for recurrence/not surgical candidate) Would be nice if this is self limited w/ decompression w/ NGT (since no surgery per Dr Ferrell) , but certainly at risk for recurrence (2) HTN (hypertension) Impression: 5/8 elevated, but much improved from admit. No indication to cover w/ IV agent ,/ no symptoms/signs of end organ damage. Can resume PO agent IF eventually can take PO but no urgency 5/7much improved (occas elevation, but no need for IV agent). Will monitor Marked elevation at admit was r/t pain stopped prn enalpril and prn labetalol 5/6 Qualifiers: Hypertension type: essential hypertension Qualified Code(s): I10 - Essential (primary) hypertension (3) Chronic pain Impression: No change 58 related to malignancy and LAR (usually has rectal area pain) continue fentanyl patch prn dilaudid for acute pain of SBO, but that pain is already improving Once obstruction resolved (hopefully) , will resume bowel regimen (4) Paroxysmal SVT (supraventricular tachycardia) Impression: per prior hx/ has not had PSVT here Viviana miranda indicated that Sarahy keeps stopping her diltiazem No SVT on tele. prn dilt if needed stopping tele (which was for the prn enalapril/labetalol which she does not need ) (2) HTN (hypertension) Qualifiers: Hypertension type: essential hypertension Qualified Code(s): I10 - Essential (primary) hypertension
[2017-03-12] MEDS: fentaNYL 12 MCG PATCH TOP SCH (01:21)
[2017-03-12] MEDS: fentaNYL 50 MCG PATCH TOP SCH (01:21)
[2017-03-12] MEDS: HYDROmorphone 1 MG/ML SYRINGE IVP PRN ×7 (01:21→22:17)
[2017-03-12] MEDS: NS W/20 MEQ KCL 1,000 ML IV SCH ×3 (01:29→16:26)
[2017-03-12] MEDS: SODIUM CHLORIDE FLUSH 0.9% 10 ML SYRINGE IVP SCH ×3 (03:54→18:56)
[2017-03-12 07:46] LABS: BASOPHILS # (AUTO) 0.1 10^3/uL (0.0-0.1); BASOPHILS % (AUTO) 0.8 %; EOSINOPHILS # (AUTO) 0.2 10^3/uL (0.0-0.7); EOSINOPHILS % (AUTO) 2.8 %; HCT - HEMATOCRIT 27.4 % (37.0-47.0); HGB - HEMOGLOBIN 9.4 g/dL (12.0-16.0); LYMPHOCYTES # (AUTO) 0.8 10^3/uL (1.5-3.5); LYMPHOCYTES % (AUTO) 9.5 %; MEAN CORPUSCULAR HEMOGLOBIN 30.8 pg (27.0-31.0); MEAN CORPUSCULAR HGB CONC 34.2 g/dL (32.0-36.0); MEAN CORPUSCULAR VOLUME 89.8 fL (81.0-99.0); MEAN PLATELET VOLUME 6.5 fL (7.9-10.8); MONOCYTES # (AUTO) 0.6 10^3/uL (0.0-1.0); MONOCYTES % (AUTO) 6.9 %; NEUTROPHILS # (AUTO) 6.7 10^3/uL (1.5-6.6); RED BLOOD COUNT 3.05 10^6/uL (4.20-5.40); RED CELL DISTRIBUTION WIDTH 15.2 % (12.0-15.0); UNCORRECTED WHITE BLOOD COUNT 8.3 x10^3/uL; WHITE BLOOD COUNT 8.3 x10^3/uL (4.8-10.8)
[2017-03-12 08:23] LABS: BILIRUBIN,TOTAL 1.1 mg/dL (0.2-1.0); CREATININE 0.3 mg/dL (0.4-1.0); MAGNESIUM 1.9 mg/dL (1.7-2.8); PHOSPHORUS 2.8 mg/dL (2.5-4.6); TOTAL PROTEIN 5.7 g/dL (6.7-8.2)
[2017-03-12 08:35] LABS: CALCIUM 8.4 mg/dL (8.5-10.3); POTASSIUM 3.8 mmol/L (3.5-5.0)
[2017-03-12] MEDS: FAMOTIDINE 20 MG/50 ML 50 ML IV SCH (08:43)
[2017-03-12] MEDS: ENOXAPARIN 30 MG/0.3 ML SYRINGE SUBQ SCH (08:43)
[2017-03-12] MEDS: SODIUM CHLORIDE FLUSH 0.9% 10 ML SYRINGE IVP PRN ×2 (11:30→15:25)
--- NOTE | 2017-03-12 16:02 | PROVIDER PROGRESS NOTE ---
Assessment/Plan - Problem List (1) Small bowel obstruction Assessment/Plan: Continues to have no output from ostomy bag. She has large volume via NG tube. PT has no PO intake over the last few days. She does feel improvement in her abdomen with less bloating and discomfort Plan Pt will start TPN today, Follow labs May need repeat CT abdomen. Waiting to see how she responds to the tube feedings and more time. (2) Paroxysmal SVT (supraventricular tachycardia) Assessment/Plan: Poor medication compliance No significant arrhythmia while on telemetry. This was discontinued Plan No changes today (3) Protein-calorie malnutrition, severe Assessment/Plan: PT has severly low WT, BMI and protein. Compounded by frequent episodes of SBO. Plan TPN will be started today Follow labs Will need better eating patterns when SBO has resolved. Appreciate assistance from nutrition services (4) Anemia Qualifiers: Anemia type: unspecified type Qualified Code(s): D64.9 - Anemia, unspecified Assessment/Plan: Suspect this is secondary to malignancy along with malnutrition. Not currently symptomatic. PLan Continue monitoring. Hopefully we see some improvemetn with supplemental nutrition started today - Current Meds Current Meds: Current Medications Generic Name Dose Route Start Last Admin Trade Name Freq PRN Reason Stop Dose Admin Enoxaparin Sodium 30 mg 03/09/17 09:00 03/12/17 08:43 Lovenox SUBQ 30 mg DAILY BLANKA Administration Fentanyl 1 patch 03/09/17 01:00 03/12/17 01:21 Duragesic TOP 1 patch Q72H BLANKA Administration Fentanyl 1 patch 03/09/17 01:00 03/12/17 01:21 Duragesic TOP 1 patch Q72H BLANKA Administration Hydromorphone HCl 1 mg 03/09/17 00:11 03/12/17 15:24 Dilaudid Inj IVP 1 mg Q2HR PRN Administration Pain 8 to 10 Famotidine 50 mls @ 100 mls/hr 03/09/17 09:00 03/12/17 08:43 Pepcid 20 Mg/50 Ml IV 100 mls/hr DAILY BLANKA Administration Potassium Chloride/Sodium Chloride 1,000 mls @ 100 mls/hr 03/10/17 16:00 03:53 Normal Saline 0.9% W/20 Meq Kcl IV 100 mls/hr .Q10H BLANKA Administration Ondansetron HCl 4 mg 03/09/17 00:11 03/09/17 01:40 Zofran Inj IVP 4 mg Q6HR PRN Administration Nausea / Vomiting Phenol/Menthol 1 - 2 sprays 03/09/17 11:45 03/09/17 11:50 Chloraseptic MM 1 sprays PRN PRN Administration Mouth Sore Pain Sodium Chloride 10 ml 03/09/17 00:11 03/12/17 15:25 Normal Saline Flush 0.9% IVP 10 ml PRN PRN Administration NEEDED PER PROVIDER ORDERS Sodium Chloride 10 ml 03/09/17 06:00 03/12/17 14:22 Normal Saline Flush 0.9% IVP Not Given Q8HR BLANKA Throat Lozenges 1 lozenge 03/10/17 12:46 03/10/17 12:53 Cepacol MM 1 lozenge Q2HR PRN Administration Mouth Sore Pain - Lab Result Lab results reviewed: Yes Fish Bone Diagrams: 03/12/17 07:28 03/12/17 06:15 - Diagnostic Imaging Results Diagnostic Imaging Results: positive: Final report reviewed - Additional Planning Condition/Complexity: Stable Plan Discussed with:: Patient Time Spent: 15-30 minutes Subjective - Subjective Patient Reports: Feeling Better (PT feels better today. She denies abdominal pain, nausea or vomiting. She continues to ambulate with no output in her ostomy. She states she just wants a milk shake) Objective Vital Signs: Vital Signs - 24 hr 03/11/17 03/12/17 17:30 00:24 Temperature 37.0 C 36.4 C L Heart Rate [ 70 72 Brachial] Respiratory 16 16 Rate Blood Pressure 156/70 H 168/60 H [Right Brachial artery] O2 Saturation 100 99 Oxygen O2 Source Room air I&O (Last 24 Hrs): Intake and Output Totals x24h 03/10/17 03/11/17 03/12/17 23:59 23:59 23:59 Intake Total 1925 1877 1549 Output Total 750 1460 700 Balance 1175 417 849 General: Alert, Oriented x3, No acute distress, Other (thin, frail) HEENT: PERRLA, EOMI, Other (NG tube in place) Neck: No JVD Neuro: Alert, Non Focal, CN 2-12 Grossly Intact Cardiovascular: Regular rate, Normal S1, Normal S2 Respiratory: No respiratory distress Abdomen: Other (No bowel tones) - Results Results: Laboratory Results WBC 8.3 x10^3/uL (4.8-10.8) 03/12/17 07:28 RBC 3.05 10^6/uL (4.20-5.40) L 03/12/17 07:28 Hgb 9.4 g/dL (12.0-16.0) L 03/12/17 07:28 Hct 27.4 % (37.0-47.0) L 03/12/17 07:28 MCV 89.8 fL (81.0-99.0) 03/12/17 07:28 MCH 30.8 pg (27.0-31.0) 03/12/17 07: MCHC 34.2 g/dL (32.0-36.0) 03/12/17 07: RDW 15.2 % (12.0-15.0) H 03/12/17 07:28 Plt Count 375 10^3/uL (130-450) 03/12/17 07:28 MPV 6.5 fL (7.9-10.8) L 03/12/17 07:28 Neut # 6.7 10^3/uL (1.5-6.6) H 03/12/17 07:28 Lymph # 0.8 10^3/uL (1.5-3.5) L 03/12/17 07:28 [place] # 0.6 10^3/uL (0.0-1.0) 03/12/17 07:28 Eos # 0.2 10^3/uL (0.0-0.7) 03/12/17 07:28 Baso # 0.1 10^3/uL (0.0-0.1) 03/12/17 07:28 Absolute Nucleated RBC 0.00 x10^3/uL 03/12/17 07:28 Nucleated RBCs 0.0 /100WBC 03/12/17 07:28 Sodium 136 mmol/L (135-145) 03/12/17 06:15 Potassium 3.8 mmol/L (3.5-5.0) 03/12/17 06:15 Chloride 102 mmol/L (101-111) 03/12/17 06:15 Carbon Dioxide 24 mmol/L (21-32) 03/12/17 06:15 Anion Gap 10.0 (6-13) 03/12/17 06:15 BUN 15 mg/dL (6-20) 03/12/17 06:15 Creatinine 0.3 mg/dL (0.4-1.0) L 03/12/17 06:15 Estimated GFR (MDRD) 214 (>89) 03/12/17 06:15 Glucose 64 mg/dL (70-100) L 03/12/17 06:15 Lactic Acid 1.6 mmol/L (0.5-2.2) 03/09/17 06:35 Calcium 8.4 mg/dL (8.5-10.3) L 03/12/17 06:15 Phosphorus 2.8 mg/dL (2.5-4.6) 03/12/17 06:15 Magnesium 1.9 mg/dL (1.7-2.8) 03/12/17 06:15 Total Bilirubin 1.1 mg/dL (0.2-1.0) H 03/12/17 06:15 AST 13 IU/L (10-42) 03/12/17 06:15 ALT 11 IU/L (10-60) 03/12/17 06:15 Alkaline Phosphatase 56 IU/L (42-121) 03/12/17 06:15 Total Protein 5.7 g/dL (6.7-8.2) L 03/12/17 06:15 Albumin 2.9 g/dL (3.2-5.5) L 03/12/17 06:15 Globulin 2.8 g/dL (2.1-4.2) 03/12/17 06:15 Albumin/Globulin Ratio 1.0 (1.0-2.2) 03/12/17 06:15 Lipase 18 U/L (22-51) L 03/08/17 19:53 - Procedures Procedures: Procedures ANTERIOR RECT RESECT NEC (03/18/15) BYPASS SIGMOID COLON TO CUTANEOUS, OPEN APPROACH (01/03/17) ENDOSCOPIC BIOPSY OF RECTUM (03/14/15) EXCISION OF PELVIS LYMPHATIC, OPEN APPROACH, DIAGNOSTIC (01/03/17) EXCISION OF RECTUM, ENDO, DIAGN (12/10/16) EXCISION OF SIGMOID COLON, ENDO, DIAGN (12/10/16) EXCISION OF SIGMOID COLON, OPEN APPROACH (01/03/17) INSERT CATHETER SPINAL CANAL, INFUSION THER. SUB. (03/18/15) INSERTION OF INFUSION DEV INTO SUP VENA CAVA, PERC APPROACH (05/09/16) INSERTION OF VAD INTO CHEST SUBCU/FASCIA, OPEN APPROACH (05/09/16) OTH REMOVE BOTH OVARIES/TUBES (03/18/15) TRANSFUSE NONAUT RED BLOOD CELLS IN PERIPH VEIN, PERC (01/03/17)
[2017-03-12] MEDS: TPN (CLINIMIX E 5/15) 2,000 ML with MULTIVITAMIN 10 ML, TRACE ELEMENTS V CONC 1 ML IV SCH ×3 (18:56)
[2017-03-12] MEDS: FAT EMULSION 20% 250 ML IV SCH (18:56)
[2017-03-12] MEDS ORDERED: METOPROLOL 5 MG/5 ML VIAL IVP ONE (21:58)
[2017-03-12] MEDS ORDERED: METOPROLOL 5 MG/5 ML VIAL IVP SCH (21:59)
[2017-03-12 22:33] LABS: ALBUMIN/GLOBULIN RATIO 1.1 (1.0-2.2); BILIRUBIN,TOTAL 0.8 mg/dL (0.2-1.0); BUN - BLOOD UREA NITROGEN 15 mg/dL (6-20); CALCIUM 8.5 mg/dL (8.5-10.3); CARBON DIOXIDE - CO2 23 mmol/L (21-32); CHLORIDE 100 mmol/L (101-111); CREATININE 0.5 mg/dL (0.4-1.0); GFR - MDRD 119 (>89); GLUCOSE 140 mg/dL (70-100); MAGNESIUM 1.9 mg/dL (1.7-2.8); PHOSPHORUS 2.9 mg/dL (2.5-4.6); POTASSIUM 3.8 mmol/L (3.5-5.0); SODIUM 134 mmol/L (135-145)
[2017-03-12] MEDS ORDERED: diltiaZEM INJ 5 MG/ML VIAL IVP SCH (22:33)
[2017-03-13] MEDS: INSULIN REGULAR HUMAN 100 UNIT/1 ML 10 ML MDV SUBQ SCH ×4 (01:06→18:16)
[2017-03-13] MEDS: NS W/20 MEQ KCL 1,000 ML IV SCH ×3 (01:52→22:37)
[2017-03-13] MEDS: HYDROmorphone 1 MG/ML SYRINGE IVP PRN ×7 (01:57→22:37)
[2017-03-13] MEDS: SODIUM CHLORIDE FLUSH 0.9% 10 ML SYRINGE IVP PRN ×2 (04:10→18:53)
[2017-03-13] MEDS: SODIUM CHLORIDE FLUSH 0.9% 10 ML SYRINGE IVP SCH ×3 (06:12→20:42)
[2017-03-13 06:28] LABS: BASOPHILS % (AUTO) 0.4 %; EOSINOPHILS # (AUTO) 0.4 10^3/uL (0.0-0.7); HCT - HEMATOCRIT 27.8 % (37.0-47.0); HGB - HEMOGLOBIN 9.2 g/dL (12.0-16.0); LYMPHOCYTES # (AUTO) 0.9 10^3/uL (1.5-3.5); LYMPHOCYTES % (AUTO) 9.9 %; MEAN CORPUSCULAR HGB CONC 33.2 g/dL (32.0-36.0); MEAN CORPUSCULAR VOLUME 90.3 fL (81.0-99.0); MEAN PLATELET VOLUME 6.5 fL (7.9-10.8); MONOCYTES # (AUTO) 0.9 10^3/uL (0.0-1.0); MONOCYTES % (AUTO) 9.6 %; NEUTROPHILS # (AUTO) 7.1 10^3/uL (1.5-6.6); NEUTROPHILS % (AUTO) 76.1 %; RED BLOOD COUNT 3.08 10^6/uL (4.20-5.40); RED CELL DISTRIBUTION WIDTH 15.1 % (12.0-15.0); UNCORRECTED WHITE BLOOD COUNT 9.3 x10^3/uL; WHITE BLOOD COUNT 9.3 x10^3/uL (4.8-10.8)
[2017-03-13 06:40] LABS: ALBUMIN/GLOBULIN RATIO 1.1 (1.0-2.2); BILIRUBIN,TOTAL 0.6 mg/dL (0.2-1.0); BUN - BLOOD UREA NITROGEN 12 mg/dL (6-20); CALCIUM 8.1 mg/dL (8.5-10.3); CARBON DIOXIDE - CO2 28 mmol/L (21-32); CHLORIDE 98 mmol/L (101-111); CREATININE 0.3 mg/dL (0.4-1.0); GFR - MDRD 214 (>89); GLUCOSE 159 mg/dL (70-100); MAGNESIUM 1.8 mg/dL (1.7-2.8); PHOSPHORUS 2.6 mg/dL (2.5-4.6); PREALBUMIN 8 mg/dL (18-45); SODIUM 131 mmol/L (135-145); TOTAL PROTEIN 5.1 g/dL (6.7-8.2); TRIGLYCERIDES 79 mg/dL
[2017-03-13 07:21] LABS: PT - PROTHROMBIN TIME 11.1 secs (9.9-12.6)
[2017-03-13] MEDS: ENOXAPARIN 30 MG/0.3 ML SYRINGE SUBQ SCH (08:37)
[2017-03-13] MEDS: FAMOTIDINE 20 MG/50 ML 50 ML IV SCH (08:37)
--- NOTE | 2017-03-13 13:01 | PROVIDER PROGRESS NOTE ---
Assessment/Plan - Problem List (1) Small bowel obstruction Assessment/Plan: No BM and no gas in ostomy bag PT was started on TPN 03/12/17 More energy since starting TPN Plan CT scan today Continue TPN PT will remain NPO Will need to have Palliative care come and discuss goals of care (2) Paroxysmal SVT (supraventricular tachycardia) Assessment/Plan: No recurrence PT did have PAF over night Plan Continue to monitor on telemetry (3) Protein-calorie malnutrition, severe Assessment/Plan: Continue TPN (4) Anemia Qualifiers: Anemia type: unspecified type Qualified Code(s): D64.9 - Anemia, unspecified (5) PAF (paroxysmal atrial fibrillation) Assessment/Plan: Afib with RVR over night PT with bradycardia after IV BB and Diltiazem Telemetry reviewed. Conversion pauses noted. She was also seen to have a pause of 3.4 seconds: this was secondary to a skipped beat while bradycardia in the mid 20's. PT is symptomatic with AF and RVR Plan No changes today Will not place her on dedicated intermodal truck driver BB or dilt given her pauses on telemetry Would need to consider dedicated intermodal truck driver goasl of care prior to considerationof PPM if she has a recurrence of the AF with RVR - Current Meds Current Meds: Current Medications Generic Name Dose Route Start Last Admin Trade Name Freq PRN Reason Stop Dose Admin Enoxaparin Sodium 30 mg 03/09/17 09:00 03/13/17 08:37 Lovenox SUBQ 30 mg DAILY BLANKA Administration Fentanyl 1 patch 03/09/17 01:00 03/12/17 01:21 Duragesic TOP 1 patch Q72H BLANKA Administration Fentanyl 1 patch 03/09/17 01:00 03/12/17 01:21 Duragesic TOP 1 patch Q72H BLANKA Administration Hydromorphone HCl 1 mg 03/09/17 00:11 03/13/17 10:58 Dilaudid Inj IVP 1 mg Q2HR PRN Administration Pain 8 to 10 Famotidine 50 mls @ 100 mls/hr 03/09/17 09:00 03/13/17 08:37 Pepcid 20 Mg/50 Ml IV 100 mls/hr DAILY BLANKA Administration Potassium Chloride/Sodium Chloride 1,000 mls @ 100 mls/hr 03/10/17 16:00 12:30 Normal Saline 0.9% W/20 Meq Kcl IV 100 mls/hr .Q10H BLANKA Administration Multivitamins 10 ml/ Chromium/ 2,011 mls @ 50 mls/hr 03/12/17 19:00 03/12/17 18 :56 Copper/Manganese/Seleni/Zn 1 IV 50 mls/hr ml/ Amino Ac/Electrol/Dextrose Q24H BLANKA Administration /Calcium Protocol Fat Emulsion Intravenous 250 mls @ 21 mls/hr 03/12/17 19:00 03/12/17 18:56 Intralipid 20% IV 21 mls/hr Q24H BLANKA Administration Insulin Human Regular 1 - 5 unit 03/13/17 00:00 03/13/17 11:55 Novolin R SUBQ 1 unit Q6HR BLANKA Administration Protocol Ondansetron HCl 4 mg 03/09/17 00:11 03/09/17 01:40 Zofran Inj IVP 4 mg Q6HR PRN Administration Nausea / Vomiting Phenol/Menthol 1 - 2 sprays 03/09/17 11:45 03/09/17 11:50 Chloraseptic MM 1 sprays PRN PRN Administration Mouth Sore Pain Sodium Chloride 10 ml 03/09/17 00:11 03/13/17 04:10 Normal Saline Flush 0.9% IVP 10 ml PRN PRN Administration NEEDED PER PROVIDER ORDERS Sodium Chloride 10 ml 03/09/17 06:00 03/13/17 06:12 Normal Saline Flush 0.9% IVP 10 ml Q8HR BLANKA Administration Throat Lozenges 1 lozenge 03/10/17 12:46 03/10/17 12:53 Cepacol MM 1 lozenge Q2HR PRN Administration Mouth Sore Pain - Lab Result Fish Bone Diagrams: 03/13/17 06:20 03/13/17 06:20 - Additional Planning My Orders: My Active Orders 03/12/17 16:02 Daily Weight [RC] DAILY 03/12/17 19:00 Fat Emulsion 20% [Intralipid 20%] 250 ml IV Q24H Multivitamin [Infuvite] 10 ml Trace Elements V Conc [Multitrace-5 Conc Vial] 1 ml TPN (Clinimix E 5/15) [Clinimix E 5%-15% Solution] 2,000 ml IV Q24H 03/12/17 19:26 Blood Glucose Checks - NPO [RC] 0600,1200,1800,0000 03/13/17 00:00 Insulin Regular Human [NovoLIN R] 1 - 5 unit SUBQ Q6HR 03/15/17 05:00 COMPREHENSIVE METABOLIC PANEL [CHEM] Routine MAGNESIUM [CHEM] Routine PHOSPHORUS [CHEM] Routine PREALBUMIN [CHEM] Routine TRIGLYCERIDES [CHEM] Routine 03/17/17 05:00 COMPREHENSIVE METABOLIC PANEL [CHEM] Routine MAGNESIUM [CHEM] Routine PHOSPHORUS [CHEM] Routine PREALBUMIN [CHEM] Routine TRIGLYCERIDES [CHEM] Routine 03/20/17 05:00 CBC - COMP BLD CT W/AUTO DIFF [HEME] Routine COMPREHENSIVE METABOLIC PANEL [CHEM] Routine MAGNESIUM [CHEM] Routine PHOSPHORUS [CHEM] Routine PREALBUMIN [CHEM] Routine PT WITH INR [COAG] Routine TRIGLYCERIDES [CHEM] Routine Plan Discussed with:: Patient Time Spent: 15-30 minutes Subjective - Subjective Patient Reports: Feeling Better (Pt has more energy after starting TPN. She is still frustrated that no gas or feces has moved in to her colostomy bag. She was aware of the Afib with RVR last night. She could also tell wehn her HR slowed back to normal. She did not have symptoms with the bradycardia.) Objective Vital Signs: Vital Signs - 24 hr 03/12/17 03/12/17 03/12/17 16:34 22:05 22:10 Temperature 36.9 C Heart Rate [ 67 Brachial] Heart Rate [ 115 H Monitoring electrodes] Respiratory 18 Rate Blood Pressure 152/102 H Blood Pressure [Left Brachial artery] Blood Pressure 158/64 H 149/10 H [Right Brachial artery] O2 Saturation 100 03/12/17 03/12/17 03/12/17 22:15 22:30 22:45 Temperature Heart Rate [ Brachial] Heart Rate [ 113 H 93 72 Monitoring electrodes] Respiratory Rate Blood Pressure Blood Pressure [Left Brachial artery] Blood Pressure 138/71 H 137/65 H 140/90 H [Right Brachial artery] O2 Saturation 03/12/17 03/13/17 03/13/17 23:59 00:05 00:10 Temperature Heart Rate [ 111 H 94 Brachial] Heart Rate [ Monitoring electrodes] Respiratory Rate Blood Pressure 158/65 H Blood Pressure 102/63 124/65 [Left Brachial artery] Blood Pressure [Right Brachial artery] O2 Saturation 05/1003/13/17 03/13/17 00:14 00:17 00:18 Temperature Heart Rate [ 76 Brachial] Heart Rate [ 45 L Monitoring electrodes] Respiratory 14 Rate Blood Pressure Blood Pressure 137/71 H 128/58 L [Left Brachial artery] Blood Pressure [Right Brachial artery] O2 Saturation 98 03/13/17 03/13/17 03/13/17 00:30 00:45 01:00 Temperature Heart Rate [ 64 82 Brachial] Heart Rate [ 77 Monitoring electrodes] Respiratory Rate Blood Pressure Blood Pressure 131/67 H 154/70 H 134/74 H [Left Brachial artery] Blood Pressure [Right Brachial artery] O2 Saturation 03/13/17 03/13/17 05:41 08:28 Temperature 36.7 C 36.7 C Heart Rate [ 61 64 Brachial] Heart Rate [ Monitoring electrodes] Respiratory 16 18 Rate Blood Pressure Blood Pressure 144/67 H 161/68 H [Left Brachial artery] Blood Pressure [Right Brachial artery] O2 Saturation 99 97 Oxygen O2 Source Room air I&O (Last 24 Hrs): Intake and Output Totals x24h 03/11/17 03/12/17 03/13/17 23:59 23:59 23:59 Intake Total 1877 1549 1004 Output Total 1460 700 925 Balance 417 849 79 General: Alert, No acute distress HEENT: PERRLA, EOMI, Other (arcus senilis) Neck: Supple Neuro: Alert, CN 2-12 Grossly Intact, Oriented Times 3 Cardiovascular: Regular rate Respiratory: No respiratory distress Abdomen: Other (no bowel sounds. Noise from NG tube suction present) Extremities: No clubbing, No cyanosis Skin: No rashes - Results Results: Laboratory Results WBC 9.3 x10^3/uL (4.8-10.8) 03/13/17 06:20 RBC 3.08 10^6/uL (4.20-5.40) L 03/13/17 06:20 Hgb 9.2 g/dL (12.0-16.0) L 03/13/17 06:20 Hct 27.8 % (37.0-47.0) L 03/13/17 06:20 MCV 90.3 fL (81.0-99.0) 03/13/17 06:20 MCH 30.0 pg (27.0-31.0) 03/13/17 06:20 MCHC 33.2 g/dL (32.0-36.0) 03/13/17 06:20 RDW 15.1 % (12.0-15.0) H 03/13/17 06:20 Plt Count 366 10^3/uL (130-450) 03/13/17 06:20 MPV 6.5 fL (7.9-10.8) L 03/13/17 06:20 Neut # 7.1 10^3/uL (1.5-6.6) H 03/13/17 06:20 Lymph # 0.9 10^3/uL (1.5-3.5) L 03/13/17 06:20 [place] # 0.9 10^3/uL (0.0-1.0) 03/13/17 06:20 Eos # 0.4 10^3/uL (0.0-0.7) 03/13/17 06:20 Baso # 0.0 10^3/uL (0.0-0.1) 03/13/17 06:20 Absolute Nucleated RBC 0.00 x10^3/uL 03/13/17 06:20 Nucleated RBCs 0.0 /100WBC 03/13/17 06:20 PT 11.1 secs (9.9-12.6) 03/13/17 06:20 INR 1.0 (0.8-1.2) 03/13/17 06:20 Sodium 131 mmol/L (135-145) L 03/13/17 06:20 Potassium 4.0 mmol/L (3.5-5.0) 03/13/17 06:20 Chloride 98 mmol/L (101-111) L 03/13/17 06:20 Carbon Dioxide 28 mmol/L (21-32) 03/13/17 06:20 Anion Gap 5.0 (6-13) L 03/13/17 06:20 BUN 12 mg/dL (6-20) 03/13/17 06:20 Creatinine 0.3 mg/dL (0.4-1.0) L 03/13/17 06:20 Estimated GFR (MDRD) 214 (>89) 03/13/17 06:20 Glucose 159 mg/dL (70-100) H 03/13/17 06:20 Lactic Acid 1.6 mmol/L (0.5-2.2) 03/09/17 06:35 Calcium 8.1 mg/dL (8.5-10.3) L 03/13/17 06:20 Ionized Calcium NO 03/12/17 22:12 Phosphorus 2.6 mg/dL (2.5-4.6) 03/13/17 06:20 Magnesium 1.8 mg/dL (1.7-2.8) 03/13/17 06:20 Total Bilirubin 0.6 mg/dL (0.2-1.0) 03/13/17 06:20 AST 14 IU/L (10-42) 03/13/17 06:20 ALT < 10 IU/L (10-60) L 03/13/17 06:20 Alkaline Phosphatase 50 IU/L (42-121) 03/13/17 06:20 Troponin I < 0.04 ng/mL (<0.49) 03/12/17 22:12 Total Protein 5.1 g/dL (6.7-8.2) L 03/13/17 06:20 Albumin 2.7 g/dL (3.2-5.5) L 03/13/17 06:20 Globulin 2.4 g/dL (2.1-4.2) 03/13/17 06:20 Albumin/Globulin Ratio 1.1 (1.0-2.2) 03/13/17 06:20 Prealbumin 8 mg/dL (18-45) L 03/13/17 06:20 Triglycerides 79 mg/dL (-149) 03/13/17 06:20 Lipase 18 U/L (22-51) L 03/08/17 19:53 TSH 1.28 uIU/mL (0.34-5.60) 03/12/17 22:12 - Procedures Procedures: Procedures ANTERIOR RECT RESECT NEC (03/18/15) BYPASS SIGMOID COLON TO CUTANEOUS, OPEN APPROACH (01/03/17) ENDOSCOPIC BIOPSY OF RECTUM (03/14/15) EXCISION OF PELVIS LYMPHATIC, OPEN APPROACH, DIAGNOSTIC (01/03/17) EXCISION OF RECTUM, ENDO, DIAGN (12/10/16) EXCISION OF SIGMOID COLON, ENDO, DIAGN (12/10/16) EXCISION OF SIGMOID COLON, OPEN APPROACH (01/03/17) INSERT CATHETER SPINAL CANAL, INFUSION THER. SUB. (03/18/15) INSERTION OF INFUSION DEV INTO SUP VENA CAVA, PERC APPROACH (05/09/16) INSERTION OF VAD INTO CHEST SUBCU/FASCIA, OPEN APPROACH (05/09/16) OTH REMOVE BOTH OVARIES/TUBES (03/18/15) TRANSFUSE NONAUT RED BLOOD CELLS IN PERIPH VEIN, PERC (01/03/17)
--- NOTE | 2017-03-13 16:36 | CT Report ---
CT OF THE ABDOMEN AND PELVIS WITHOUT CONTRAST: 03/13/2017 CLINICAL INDICATION: Followup small bowel obstruction. TECHNIQUE: Axial CT images of the abdomen and pelvis were obtained without intravenous contrast. The patient did tolerate a small amount of oral contrast down the nasogastric tube. COMPARISON: 03/08/2017. FINDINGS: Limited evaluation of the lung bases again demonstrates pulmonary nodules, measuring up to 2.2 cm in the right middle lobe. ABDOMEN: Allowing for the lack of intravenous contrast enhancement, the liver, spleen, pancreas and a drenal glands appear unremarkable. The kidneys demonstrate peripelvic cysts. The gallbladder is not d ilated. The previously seen small bowel dilatation has resolved, and oral contrast reached the ascend ing colon, excluding a mechanical small bowel obstruction. Ostomy in the left lower quadrant appears unchanged. PELVIS: Presacral fatty induration appears unchanged. No pelvic adenopathy is seen. The osseous structures demonstrate degenerative changes. IMPRESSION: 1. RESOLUTION OF PREVIOUSLY SEEN SMALL BOWEL OBSTRUCTION PATTERN. ORAL CONTRAST DID REACH THE ASCENDI NG COLON, EXCLUDING A COMPLETE SMALL BOWEL OBSTRUCTION. 2. STABLE PULMONARY NODULES AND POSTOPERATIVE CHANGES. In accordance with CT protocol optimization, one or more of the following dose reduction techniques w ere utilized for this exam: automated exposure control, adjustment of mA and/or KV based on patient size, or use of iterative reconstructive technique. JOB #: [id number] EXT JOB #:[id number]
[2017-03-13] MEDS: TPN (CLINIMIX E 5/15) 2,000 ML with MULTIVITAMIN 10 ML, TRACE ELEMENTS V CONC 1 ML IV SCH ×3 (19:41)
[2017-03-13] MEDS: FAT EMULSION 20% 250 ML IV SCH (19:42)
[2017-03-13] MEDS: HYDROmorphone 2 MG TABLET PO PRN (23:47)
[2017-03-14] MEDS: INSULIN REGULAR HUMAN 100 UNIT/1 ML 10 ML MDV SUBQ SCH ×3 (01:54→12:41)
[2017-03-14] MEDS: HYDROmorphone 1 MG/ML SYRINGE IVP PRN ×4 (02:56→13:15)
[2017-03-14] MEDS: SODIUM CHLORIDE FLUSH 0.9% 10 ML SYRINGE IVP SCH ×3 (05:44→22:00)
--- NOTE | 2017-03-14 06:54 | CONSULTATION NOTE ---
DATE OF CONSULTATION: 03/13/2017 00:00:00 REQUESTING PROVIDER: BRYN Childers. TOPIC: Followup palliative care consult. Thank you for asking the palliative care consult service to be involved in the care of your patient. I am asked to provide clarification on goals of care. BRIEF HISTORY OF PRESENT ILLNESS: This is a feisty independent 81-year-old woman [facility], who has stage IV colon cancer with metastatic disease to the lung and recurrent disease to a nastomosis extended to the left pelvic wall and positive margin into the bone. She is well known to mariela reinier from my outpatient practice and she was currently getting radiation for pain control, which actuall y she was feeling less pain and distress and tolerating it fairly well. She was eating and drinking. Her pain was improving and she was gaining some of her endurance and strength back. Unfortunately, [place] did have one episode of severe nausea and vomiting and was presented to the ED. This did eventually resolve. She did continue with her radiation, one more treatment, and then she ended up hospitalized on 03/09/2017 with a small-bowel obstruction. She had had an NG tube placed and had been waiting for resolution. Unfortunately this she was not considered a surgical candidate on presentation to the ED , the goal was for medical management. On 03/12/2017 she was still putting out large amounts of gastr ic contents from her NG tube and no output from her colostomy and they did start her on some TPN with a plan for a CT scan today. Currently, she actually is feeling much better. She has only required in termittent breakthrough pain medication. Of note, she is on fentanyl 62 mcg. She had been on 75 mcg a nd in following up with this she had run out of her 25 mg patches as she had not picked them up in a timely manner and had to use one of her 12s. Currently, she feels quite comfortable. Her abdomen is s oft. She does have good bowel tones, but has nothing in her colostomy. She denies nausea. She is just quite annoyed as she feels really quite hungry and is craving ice cream. She did have an episode of paroxysmal SVT over the night of 03/12/2017. Currently, she is in sinus rh ythm. She denies any chest pain or fluttering or discomfort with this, as usual, she is quite dismiss almas that her heart is just fine and her lungs and everything else. She had actually when I seen her on the first of March had gotten her weight up to 88.5. She is down to 83. It does look like she has more temporal and upper lower extremity wasting. She is quite discoura ged to have lost ground over this and that she had been working very hard to regain her strength to m eet her goals. BRIEF SOCIAL HISTORY: She does live independently in the home with her friend, Lo. They have actuall y been friends for over 50 years. She is quite concerned with her demise what is going to happen to P at as she does provide a lot of care giving and oversight for her; Lo has many healthcare issues and she is actually quite distressed in discussing her impending decline how that might be. She does hav e a sister who is coming in tomorrow at 3:00 to help take care of her. I have met her before, Chelsea, and she is very pragmatic and capable caregiver to help as she is quite a bit younger than Mer. PERFORMANCE STATUS: The patient continues to be a little bit of a energizer bunny, is doing frequent laps with her walker after she does connect from the NG tube. Of note, she has not had any nausea or discomfort being disconnected and has tolerated fairly well. She has had multiple visitors and has to lerated that quite well. I would put her at a palliative care performance status currently at 60%. REVIEW OF SYSTEMS: ENT: She remains very hard of hearing. CARDIOVASCULAR: She denies any symptomatology today from her episode. RESPIRATORY: Denies shortness of breath. GASTROINTESTINAL: She has had no output from her ostomy. GENITOURINARY: She reports voiding without difficulty. Has not had any cystitis symptoms from the rad iation. She does have intermittent rectal drainage. MUSCULOSKELETAL: She does feel little bit weaker given her not being able to eat. INTEGUMENTARY: No further bleeding from her colostomy site. NEUROLOGIC: She is alert and oriented. PSYCHIATRIC: She does have underlying anxiety and does report she gets easily overwhelmed with too mu ch information and she likes it short and sweet and to be able to digest it. We have finally figured out a workable communication pattern around that. PHYSICAL EXAMINATION: GENERAL: She is very anxious about talking about the next step; she is having difficulty making eye c ontact with me. ENT: Mucous membranes are moist. There are no signs of candidiasis. Her throat, though, and swallowin g is quite painful for her with NG tube in. RESPIRATORY: No noted respiratory effort. VITAL SIGNS: She has been afebrile with a temperature of 36.7, pulse 64, blood pressure 151/68. GI: Abdomen without distension, no output in colostomy though. EXTREMITIES: Patient ambulatory without problems, is using the walker for balance. PALLIATIVE CARE DISCUSSION: Who is present, myself and the patient. She did greet me walking into the room that she had made a decision that she was not going to do surgery and she just wanted to take t he "two black pills". With that announcement we did start to explore back and forth what information she wanted and what she was working with. In the context of no further surgery she was really quite a damant about this. I did not initiate any further conversation, though I have seen people with ventin g gastrostomies that relieve the discomfort of obstruction and have gone home quite comfortable that way. We did discuss the other option in the fact that she wants to go home and figure out "what is ne xt", could pull the NG tube. She could eat if she wanted to knowing that she would throw it up or sh e could just chose to keep her mouth moist so it can be comfortable. We would medicate her for any ki nd of discomfort and expected decline. It would probably be days up to a couple weeks at the most. Gi kassie her underlying fragile status, I expect we would be looking at 7-10 days in the most practical sc enario. I did introduce again hospice; it is a push pull conversation with her, she wanted to know "w hat they could do for her" and we discussed them at this support team for both her and whoever was he lping with her care needs. She is aware that they do not "move in," but would be able to be someone hong martin could call and help her keep comfortable and assist getting equipment if she needed any assistanc e as she got weaker as far as bathing and to change her colostomy and to be available 24/7 for any ki nd of distress she might experience. She did come to some recognition when we discussed the wit h dignity, that it does take several weeks and given the fact that she can not swallow that most like ly would not be practical. Her sister is coming, she was able to share some emotional distress and th at her friend Pat knew with her sister coming that she was preparing to . The patient herself was somewhat anxious but not feeling too distressed over this, but wanting to figure it out. I did answer her questions and respected when she had felt like she had enough information. The patient had her CT scan. I then did go down after the above and conference with her hospitalist Jeannie CLEMENTE that the CT scan had shown that the small-bowel obstruction that was previously id entified had resolved, oral contrast had reached the descending colon and excluded a complete small-b owel obstruction. It also shows stable pulmonary nodules and her postoperative changes. In discussing with the hospitalist the agreement was particularly given the patient's goals, to clamp the NG tube and allow her to have clear liquids and ice cream and I did agree to go back and discuss these findin gs with her. I did sit down with the patient and talk to her as best we know at this point in time, i t looks like her obstruction is resolved. We will not know clinically what that would mean until woul d try some food and fluids. She is actually quite ecstatic and in fact her word was elation. She has threatened to cancel her sister's arrival tomorrow which I have strongly discouraged telling her that certainly this was a little bit of wakeup call. She was quite convinced that she still "several christin hs yet to ago, thank you very much Viviana". I did gently remind her regarding the seriousness of our c onversation and just her need for ongoing support that we still consider some of these options she maurer s been talking about particularly looking at hospice for support. She did agree for me to come around and talk with her sister, arrives tomorrow afternoon. IMPRESSION: This is a feisty 81-year-old woman with stage IV metastatic colon cancer, presenting with small-bowel obstruction. She certainly remains at risk for recurrent bowel obstructions and issues. This did allow for conversation about end of life and will continue to plan with her sister who I am quite familiar with an ongoing plan for transition to home and possibly to hospice when the patient i s accepting. Again, recognizing that she remains at high risk for recurrence of obstruction. RECOMMENDATIONS/COUNSELING DONE: 1. Pain of neoplastic origin. The patient had previous hospitalization been on 75 mcg of fentanyl an d she was getting quite a bit of relief from her radiation I would at this point in time of discharge her on this 62 mcg to the 50 plus 12 along with her ongoing Dilaudid 2 mg for breakthrough pain. She will need a prescription on discharge for 12 mcg patches. Her pain currently is well controlled. 2. Small-bowel obstruction. It is unknown as far as the patient's ability to tolerate food and fluids at this point in time. We will continue to monitor. The patient will need instruction on appropriate diet adaptations. 3. Constipation. The patient does have longstanding constipation. She has appropriately titrated Radha Lax and Senna in the past fairly appropriately. Will need to continue to monitor this. I will followu p with her sister who was very good overseeing this before. 4. Hypertension. She had taken the lisinopril before. She does have Diltiazem at home and will need n egotiate if this is necessary at discharge if she will adheres to this. 5. Advanced care planning. The patient does have a lot of anxiousness and is difficult to engage in e nd of life conversations. This could give me an opportunity to give a lot of the what ifs, and jose angel ghted the need to plan in and be a little bit more engaged to this process. Up to this point in time she has kind of pushed it off with her "plan to be done with this" and I do believe this is highlight ed and need to be little bit more engaged in this process and will continue to work with her on outpa tient basis as well. Thank you do Maxwell CLEMENTE, for allowing me to support this patient in this complex situation. I will chipewwa around and followup with the sister, so we have a solid discharge plan and perhaps be a ble to further work with the patient and her sister on goals. TIME SPENT: 45 minutes with greater than 50% of this done in coordination of care with hospitalistreza on results, end of life planning and anticipatory guidance. JOB #: [id number] EXT JOB #:[id number]
[2017-03-14] MEDS: FAMOTIDINE 20 MG/50 ML 50 ML IV SCH (08:59)
[2017-03-14] MEDS: NS W/20 MEQ KCL 1,000 ML IV SCH (08:59)
[2017-03-14] MEDS: ENOXAPARIN 30 MG/0.3 ML SYRINGE SUBQ SCH (09:08)
[2017-03-14] MEDS: SODIUM CHLORIDE FLUSH 0.9% 10 ML SYRINGE IVP PRN ×3 (09:08→15:01)
--- NOTE | 2017-03-14 09:30 | PROVIDER PROGRESS NOTE ---
Assessment/Plan - Problem List (1) Small bowel obstruction Assessment/Plan: Problem List (1) Small bowel obstruction Assessment/Plan: Pt now with stool adn gas in colostomy bag CT abdomen from last night now showing resolution of SBO PT tolerating clears and ice cream X12 hours Feeling much better today PT accidentally removed her NG tube this AM while asleep Plan Advance to general diet today Will stop TPN DC IV fluids Continue to monitor output OK to leave NG tube out (2) Chronic pain Conclusion/Plan: Patient has chronic pain secondary to metastatic cancer PAin has improved since admission and is currently well controlled Plan No changes to her current regimen (3) Colon cancer Conclusion/Plan: Stage IV Radiation therapy for symptom management PT working with palliative care and considering hospice DNR/DNI (4) Protein-calorie malnutrition, severe Assessment/Plan: SBO has cleared./ Advancing diet to general today Will DC TPN (5) Anemia Qualifiers: Anemia type: unspecified type Qualified Code(s): D64.9 - Anemia, unspecified Assessment/Plan: Stable H/H Asymptomatic (6) PAF (paroxysmal atrial fibrillation) Assessment/Plan: Afib with RVR during admission PT with bradycardia after IV BB and Diltiazem Telemetry reviewed. Conversion pauses noted. She was also seen to have a pause of 3.4 seconds: this was secondary to a skipped beat while bradycardia in the mid 20's. on previous nights. No issues today with spontaneous conversion to NSR PT is symptomatic with AF and RVR adn aware fo when she returns to NSR Plan No changes today Will not place her on mcfp BB or dilt given her pauses on telemetry Currently PPM is not indicated. - Current Meds Current Meds: Current Medications Generic Name Dose Route Start Last Admin Trade Name Freq PRN Reason Stop Dose Admin Enoxaparin Sodium 30 mg 03/09/17 09:00 03/14/17 09:08 Lovenox SUBQ 30 mg DAILY BLANKA Administration Fentanyl 1 patch 03/09/17 01:00 03/12/17 01:21 Duragesic TOP 1 patch Q72H BLANKA Administration Fentanyl 1 patch 03/09/17 01:00 03/12/17 01:21 Duragesic TOP 1 patch Q72H BLANKA Administration Hydromorphone HCl 1 mg 03/09/17 00:11 03/14/17 09:09 Dilaudid Inj IVP 1 mg Q2HR PRN Administration Pain 8 to 10 Hydromorphone HCl 2 mg 03/09/17 00:10 03/13/17 23:47 Dilaudid PO 2 mg Q3H PRN Administration SEVERE BREAKTHROUGH PAIN Famotidine 50 mls @ 100 mls/hr 03/09/17 09:00 03/14/17 08:59 Pepcid 20 Mg/50 Ml IV Not Given DAILY [facility] Potassium Chloride/Sodium Chloride 1,000 mls @ 100 mls/hr 03/10/17 16:00 08:59 Normal Saline 0.9% W/20 Meq Kcl IV Not Given .Q10H [facility] Multivitamins 10 ml/ Chromium/ 2,011 mls @ 50 mls/hr 03/12/17 19:00 03/13/17 19 :41 Copper/Manganese/Seleni/Zn 1 IV 50 mls/hr ml/ Amino Ac/Electrol/Dextrose Q24H BLANKA Administration /Calcium Protocol Fat Emulsion Intravenous 250 mls @ 21 mls/hr 03/12/17 19:00 03/13/17 19:42 Intralipid 20% IV 21 mls/hr Q24H BLANKA Administration Insulin Human Regular 1 - 5 unit 03/13/17 00:00 03/14/17 05:55 Novolin R SUBQ Not Given Q6HR [facility] Protocol Ondansetron HCl 4 mg 03/09/17 00:11 03/09/17 01:40 Zofran Inj IVP 4 mg Q6HR PRN Administration Nausea / Vomiting Phenol/Menthol 1 - 2 sprays 03/09/17 11:45 03/09/17 11:50 Chloraseptic MM 1 sprays PRN PRN Administration Mouth Sore Pain Sodium Chloride 10 ml 03/09/17 00:11 03/14/17 09:08 Normal Saline Flush 0.9% IVP 10 ml PRN PRN Administration NEEDED PER PROVIDER ORDERS Sodium Chloride 10 ml 03/09/17 06:00 03/14/17 05:44 Normal Saline Flush 0.9% IVP 10 ml Q8HR BLANKA Administration Throat Lozenges 1 lozenge 03/10/17 12:46 03/10/17 12:53 Cepacol MM 1 lozenge Q2HR PRN Administration Mouth Sore Pain - Lab Result Lab results reviewed: Yes Fish Bone Diagrams: 03/13/17 06:20 03/13/17 06:20 - Diagnostic Imaging Results Diagnostic Imaging Results: positive: Final report reviewed (SBO resolved.) - Additional Planning Condition/Complexity: Improved My Orders: My Active Orders 03/14/17 Lunch DIET [Regular Diet] [DIET] 03/15/17 05:00 COMPREHENSIVE METABOLIC PANEL [CHEM] Routine MAGNESIUM [CHEM] Routine PHOSPHORUS [CHEM] Routine PREALBUMIN [CHEM] Routine TRIGLYCERIDES [CHEM] Routine 03/17/17 05:00 COMPREHENSIVE METABOLIC PANEL [CHEM] Routine MAGNESIUM [CHEM] Routine PHOSPHORUS [CHEM] Routine PREALBUMIN [CHEM] Routine TRIGLYCERIDES [CHEM] Routine 03/20/17 05:00 CBC - COMP BLD CT W/AUTO DIFF [HEME] Routine COMPREHENSIVE METABOLIC PANEL [CHEM] Routine MAGNESIUM [CHEM] Routine PHOSPHORUS [CHEM] Routine PREALBUMIN [CHEM] Routine PT WITH INR [COAG] Routine TRIGLYCERIDES [CHEM] Routine Plan Discussed with:: Patient Time Spent: 15-30 minutes Subjective - Subjective Patient Reports: Feeling Better (Pain is controlled. She is tolerating clear liquid diet. She wants to advance diet today. She pulled her NG tube this AM while asleep) Nursing Reports: Other (PAF. Tolerating diet) Objective Vital Signs: Vital Signs - 24 hr 03/13/17 03/13/17 03/13/17 14:00 16:00 20:45 Temperature 36.7 C 37.2 C 36.9 C Heart Rate [ 69 72 79 Brachial] Respiratory 19 18 18 Rate Blood Pressure 178/75 H 178/75 H 183/83 H [Left Brachial artery] O2 Saturation 100 97 03/14/17 03/14/17 03/14/17 01:11 06:16 08:21 Temperature 36.7 C 37.0 C 36.7 C Heart Rate [ 74 75 65 Brachial] Respiratory 16 16 20 Rate Blood Pressure 162/72 H 174/83 H 152/75 H [Left Brachial artery] O2 Saturation 100 99 100 Oxygen O2 Source Room air I&O (Last 24 Hrs): Intake and Output Totals x24h 03/12/17 03/13/17 03/14/17 23:59 23:59 23:59 Intake Total 1549 3436 1901 Output Total 700 1975 550 Balance 849 1461 1351 General: Alert, Oriented x3 HEENT: PERRLA, EOMI, Other (Arcus sinilis) Neck: No JVD Neuro: Alert, CN 2-12 Grossly Intact Cardiovascular: Regular rate Respiratory: No respiratory distress Abdomen: Normal bowel sounds - Results Results: Laboratory Results WBC 9.3 x10^3/uL (4.8-10.8) 03/13/17 06:20 RBC 3.08 10^6/uL (4.20-5.40) L 03/13/17 06:20 Hgb 9.2 g/dL (12.0-16.0) L 03/13/17 06:20 Hct 27.8 % (37.0-47.0) L 03/13/17 06:20 MCV 90.3 fL (81.0-99.0) 03/13/17 06:20 MCH 30.0 pg (27.0-31.0) 03/13/17 06:20 MCHC 33.2 g/dL (32.0-36.0) 03/13/17 06:20 RDW 15.1 % (12.0-15.0) H 03/13/17 06:20 Plt Count 366 10^3/uL (130-450) 03/13/17 06:20 MPV 6.5 fL (7.9-10.8) L 03/13/17 06:20 Neut # 7.1 10^3/uL (1.5-6.6) H 03/13/17 06:20 Lymph # 0.9 10^3/uL (1.5-3.5) L 03/13/17 06:20 Carter # 0.9 10^3/uL (0.0-1.0) 03/13/17 06:20 Eos # 0.4 10^3/uL (0.0-0.7) 03/13/17 06:20 Baso # 0.0 10^3/uL (0.0-0.1) 03/13/17 06:20 Absolute Nucleated RBC 0.00 x10^3/uL 03/13/17 06:20 Nucleated RBCs 0.0 /100WBC 03/13/17 06:20 PT 11.1 secs (9.9-12.6) 03/13/17 06:20 INR 1.0 (0.8-1.2) 03/13/17 06:20 Sodium 131 mmol/L (135-145) L 03/13/17 06:20 Potassium 4.0 mmol/L (3.5-5.0) 03/13/17 06:20 Chloride 98 mmol/L (101-111) L 03/13/17 06:20 Carbon Dioxide 28 mmol/L (21-32) 03/13/17 06:20 Anion Gap 5.0 (6-13) L 03/13/17 06:20 BUN 12 mg/dL (6-20) 03/13/17 06:20 Creatinine 0.3 mg/dL (0.4-1.0) L 03/13/17 06:20 Estimated GFR (MDRD) 214 (>89) 03/13/17 06:20 Glucose 159 mg/dL (70-100) H 03/13/17 06:20 Lactic Acid 1.6 mmol/L (0.5-2.2) 03/09/17 06:35 Calcium 8.1 mg/dL (8.5-10.3) L 03/13/17 06:20 Ionized Calcium NO 03/12/17 22:12 Phosphorus 2.6 mg/dL (2.5-4.6) 03/13/17 06:20 Magnesium 1.8 mg/dL (1.7-2.8) 03/13/17 06:20 Total Bilirubin 0.6 mg/dL (0.2-1.0) 03/13/17 06:20 AST 14 IU/L (10-42) 03/13/17 06:20 ALT < 10 IU/L (10-60) L 03/13/17 06:20 Alkaline Phosphatase 50 IU/L (42-121) 03/13/17 06:20 Troponin I < 0.04 ng/mL (<0.49) 03/12/17 22:12 Total Protein 5.1 g/dL (6.7-8.2) L 03/13/17 06:20 Albumin 2.7 g/dL (3.2-5.5) L 03/13/17 06:20 Globulin 2.4 g/dL (2.1-4.2) 03/13/17 06:20 Albumin/Globulin Ratio 1.1 (1.0-2.2) 03/13/17 06:20 Prealbumin 8 mg/dL (18-45) L 03/13/17 06:20 Triglycerides 79 mg/dL (-149) 03/13/17 06:20 Lipase 18 U/L (22-51) L 03/08/17 19:53 TSH 1.28 uIU/mL (0.34-5.60) 03/12/17 22:12 - Procedures Procedures: Procedures ANTERIOR RECT RESECT NEC (03/18/15) BYPASS SIGMOID COLON TO CUTANEOUS, OPEN APPROACH (01/03/17) ENDOSCOPIC BIOPSY OF RECTUM (03/14/15) EXCISION OF PELVIS LYMPHATIC, OPEN APPROACH, DIAGNOSTIC (01/03/17) EXCISION OF RECTUM, ENDO, DIAGN (12/10/16) EXCISION OF SIGMOID COLON, ENDO, DIAGN (12/10/16) EXCISION OF SIGMOID COLON, OPEN APPROACH (01/03/17) INSERT CATHETER SPINAL CANAL, INFUSION THER. SUB. (03/18/15) INSERTION OF INFUSION DEV INTO SUP VENA CAVA, PERC APPROACH (05/09/16) INSERTION OF VAD INTO CHEST SUBCU/FASCIA, OPEN APPROACH (05/09/16) OTH REMOVE BOTH OVARIES/TUBES (03/18/15) TRANSFUSE NONAUT RED BLOOD CELLS IN PERIPH VEIN, PERC (01/03/17)
[2017-03-14] MEDS: FAMOTIDINE 20 MG TABLET PO SCH (13:52)
[2017-03-14] MEDS: HYDROmorphone 2 MG TABLET PO PRN ×2 (18:01→21:04)
[2017-03-15] MEDS: fentaNYL 50 MCG PATCH TOP SCH (00:48)
[2017-03-15] MEDS: HYDROmorphone 2 MG TABLET PO PRN (00:49)
[2017-03-15] MEDS: fentaNYL 12 MCG PATCH TOP SCH (00:49)
[2017-03-15 05:34] LABS: BILIRUBIN,TOTAL 0.3 mg/dL (0.2-1.0); BUN - BLOOD UREA NITROGEN 12 mg/dL (6-20); CALCIUM 8.4 mg/dL (8.5-10.3); CARBON DIOXIDE - CO2 30 mmol/L (21-32); CHLORIDE 99 mmol/L (101-111); CREATININE 0.5 mg/dL (0.4-1.0); GFR - MDRD 119 (>89); GLUCOSE 100 mg/dL (70-100); MAGNESIUM 1.8 mg/dL (1.7-2.8); PHOSPHORUS 3.6 mg/dL (2.5-4.6); POTASSIUM 4.2 mmol/L (3.5-5.0); PREALBUMIN 9 mg/dL (18-45); SODIUM 134 mmol/L (135-145); TOTAL PROTEIN 5.2 g/dL (6.7-8.2); TRIGLYCERIDES 99 mg/dL
--- NOTE | 2017-03-15 05:51 | CONSULTATION NOTE ---
DATE OF CONSULTATION: 03/14/2017 00:00:00 REQUESTING PROVIDER: Maxwell De La Cruz PA-C TOPIC: Followup palliative care consult. TIME OF VISIT: [id number] Thank you for asking the palliative care consult service to be involved in the care of your patient and following for clarification of goals and pain and symptom management. I do see the patient in an outpatient setting as well. 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 She also has some residual disease in her left pelvic wall and positive margin into the bone. She presented on 03/09/2017 with a small bowel obstruction. This has since resolved. She was started on clear liquids last night with ice cream, per her request. She has had her NG tube removed. She is tolerating actually advanced diet. She did have lunch today. She denies any nausea, bloating, or discomfort. She has had stool move through her colostomy. Her abdomen is soft. She does have positive bowel tones, and she is quite pleased. She reports the pain is well controlled on the Duragesic 62 mcg total. She is still continuing to use hydromorphone 2 mg for breakthrough pain. She is quite active and has been ambulating frequently with circles around the gilbert. She denies any shortness of breath. She has not had any further paroxysmal atrial fibrillation and remains slightly hypertensive, though of note , she has not been taking her lisinopril this admission. Her current weight is 38.9. She had gotten her weight up prior to admit. She is determined to continue to build herself up and feels actually quite hungry. She is quite thin in appearance. 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 They have been friends for over 50 years. She is quite focused regarding who is going to step up and help with her care. Her friend does have many healthcare issues. Her sister is here today, Chelsea, who is younger than she but is a pragmatic and capable caregiver. She does plan to stay for a period of time to help the patient over these next couple of weeks, though this is not defined. PERFORMANCE STATUS: The patient continues to be a little energizer bunny doing her frequent laps. She is wanting to build up her strength and endurance. Her goal is to be as independent as possible. I would put her at a palliative care performance status currently at 60%. REVIEW OF SYSTEMS GENERAL: She remains very hard of hearing. CARDIOVASCULAR: Denies any chest pain. RESPIRATORY: No shortness of breath even with ambulation. GASTROINTESTINAL: She has been moving soft brown stool through her colostomy. GENITOURINARY: She is voiding without any difficulty. MUSCULOSKELETAL: She is feeling a little bit stronger. NEUROLOGICAL: She is alert and oriented. PSYCHIATRIC: She does get quite anxious when talking about end of life but wanted to participate in a family conference. EXTREMITIES: Her gait is steady, but she is walking with a walker. PHYSICAL EXAMINATION GENERAL APPEARANCE: She appears much more alert and engaged today, much more relaxed. She is quite pleased with her progress. ENT: Mucous membranes are moist, no signs or symptoms of candidiasis. She still has a slight sore throat from the NG tube being in. RESPIRATORY: No effort noted. ABDOMEN: Without distention, with colostomy. EXTREMITIES: No lower extremity edema. She does have good range of motion. PALLIATIVE CARE DISCUSSION: Who was present: Myself, the patient, her sister, Chelsea, and her friend, Lo. The agreement was that we would talk about her next transition plan and her goals. She wanted to allow for time for her sister and friend, Lo, to ask questions about hospice. Currently, the patient's goals are to finish her radiation. She does plan to go back. She had 3 treatments left. She does see Dr. Pabon on Saturday. Given her personal goals, she will see if there is any other treatment. She is hoping to go as long as possible for as long as her quality of life is acceptable and she can remain independent. This would include further treatment if it were offered to her. She is still somewhat pragmatic and would be weighing the benefits and burdens. The suspicion is her current small bowel obstruction may have been due to edema in her small bowel from the side effects of radiation. I suspect, if this is true, she should be fine with 3 more treatments without further sequelae regarding this. The patient currently is feeling quite elated but was more than happy to engage in the conversation regarding hospice, clarifying exactly what was and was not included with this. As far as support, I did address all of her friend Lo's and her sister Chelsea's questions and did introduce the hospice benefit. We also touched on the different roles of the team members, and her goal is to have a at home. She also wanted to make sure both Chelsea and Lo understood if she were to be found or not breathing that they would know what to do. We discussed that on hospice, they would call hospice, but off of hospice, they would need to find the POLST and then call 911. The paramedics would come and pronounce her, and then they would need to have a home. The patient's next goal is to get her arrangements made. We did agree currently that given the patient's goals and her current support, she is not quite ready for hospice, though is quite willing to admit that it is in the future. She is just hoping it is not in the near future, but was at least willing to entertain the need to plan, particularly in the context of her recent obstructive symptoms. She is quite in agreement, though, to have palliative care continue to follow her and help her manage her symptoms. IMPRESSION: This is a feisty, independent 81-year-old woman with stage IV metastatic colon cancer with resolved small bowel obstruction, most likely attributed to her radiation. She does remain, of course, at risk for recurrent bowel obstruction and issues. Her sister is here currently to provide support in that transition. The patient, though, remains quite anxious, as last time she was discharged and had to be readmitted again. She is hoping to make sure that this is "going to take this time" and wanting to make sure she is going to tolerate progression of her diet. RECOMMENDATIONS/COUNSELING DONE 1. Pain of neoplastic origin. The patient currently on fentanyl 50 and 12 mcg with 2 mg of breakthrough pain. At this point in time, this is managing her pain adequately. Again, she will need a prescription for 12 mcg patches on discharge. She does have 25 mcg patches at home as well as Dilaudid. 2. Protein-calorie malnutrition. The patient is quite enthusiastic about eating to meet her goal of weight gain but recognizing that she needs to pace herself. Today, she has been able to tolerate her diet and is looking forward to her next meal. One thing that is for sure with this patient is that she does like to eat. 3. Metastatic colon cancer stage IV. She is quite determined to finish her course of radiation. She will call tomorrow and make her appointments. She is hoping that she will remain stable. She also has a followup appointment with Dr. Pabon on Saturday and will weigh benefits and burdens of further treatment options, recognizing again, in trying to educate her, that if she no longer has treatment options or weighs the benefits and burdens for no treatment , she would qualify for hospice at that point in time. 4. Hypertension. She does need to be restarted on her lisinopril 10 mg. This has kept her in pretty good control before without any symptoms or side effects. 5. Advanced care planning. Did have a family conference. Do feel like her main caregiving support group is on board, aware of the options and aware of the patient's wishes and definitions of what is quality of life. I will continue to follow her on an outpatient basis. We have tentatively set an appointment on Saturday or Saturday for followup of her symptoms. Thank you, Maxwell De La Cruz PA-C, for allowing me to support this rafia patient. It does feel like we have a discharge plan as far as safety. Chelsea has taken care of the patient before. Will need instruction in review of medications quite clearly as well as colostomy supplies before discharge. She is planning to follow up with Patsy Carlos tomorrow. TIME SPENT: 45 minutes with greater than 50% of this done in family conference, coordination of care, weighing benefits and burdens of further treatment options , as well as anticipatory guidance. JOB #: [id number] EXT JOB #:[id number] BARBARA
[2017-03-15] MEDS: SODIUM CHLORIDE FLUSH 0.9% 10 ML SYRINGE IVP SCH ×3 (05:57→21:24)
[2017-03-15] MEDS: SODIUM CHLORIDE FLUSH 0.9% 10 ML SYRINGE IVP PRN ×2 (05:57→15:14)
[2017-03-15] MEDS: HYDROmorphone 1 MG/ML SYRINGE IVP PRN ×4 (07:33→22:22)
[2017-03-15] MEDS: ENOXAPARIN 30 MG/0.3 ML SYRINGE SUBQ SCH (10:32)
[2017-03-15] MEDS: FAMOTIDINE 20 MG TABLET PO SCH (10:32)
[2017-03-15] MEDS ORDERED: POLYETHYLENE GLYCOL 3350 17 GM PACKET PO ONE ×2 (13:00→15:00)
--- NOTE | 2017-03-15 13:04 | PROVIDER PROGRESS NOTE ---
Assessment/Plan - Problem List (1) Small bowel obstruction Assessment/Plan: Assessment/Plan: PT has tolerated PO intake and advancement of diet. She is concerned with change with decrease in BM moving into colostomy bag Currently she has decrease in stool and gas into colostomy bag CT abdomen from 03/13/17 showing resolution of SBO Plan Continue to monitor output PT will ambulate this AM and after lunch. IF no output then will need repeat Abd Xray and possibly a CT (2) Chronic pain Conclusion/Plan: Patient has chronic pain secondary to metastatic cancer Pain is controlled on current regimen Plan No changes to her current regimen (3) Colon cancer Conclusion/Plan: Stage IV Radiation therapy for symptom management PT working with palliative care and considering hospice DNR/DNI No changes today (4) Protein-calorie malnutrition, severe Assessment/Plan: SBO has cleared./ Continue current diet (5) Anemia Qualifiers: Anemia type: unspecified type Qualified Code(s): D64.9 - Anemia, unspecified Assessment/Plan: Stable H/H Asymptomatic No changes (6) PAF (paroxysmal atrial fibrillation) Assessment/Plan: Reminas stable Afib with RVR during admission PT with bradycardia after IV BB and Diltiazem Telemetry reviewed. Conversion pauses noted. She was also seen to have a pause of 3.4 seconds: this was secondary to a skipped beat while bradycardia in the mid 20's. on previous nights. No issues today with spontaneous conversion to NSR PT is symptomatic with AF and RVR adn aware fo when she returns to NSR Plan No changes today Will not place her on halfway BB or dilt given her pauses on telemetry Currently PPM is not indicated. - Current Meds Current Meds: Current Medications Generic Name Dose Route Start Last Admin Trade Name Freq PRN Reason Stop Dose Admin Enoxaparin Sodium 30 mg 03/09/17 09:00 03/15/17 10:32 Lovenox SUBQ 30 mg DAILY BLANKA Administration Famotidine 20 mg 03/14/17 13:40 03/15/17 10:32 Pepcid PO 20 mg DAILY BLANKA Administration Fentanyl 1 patch 03/09/17 01:00 03/15/17 00:48 Duragesic TOP 1 patch Q72H BLANKA Administration Fentanyl 1 patch 03/09/17 01:00 03/15/17 00:49 Duragesic TOP 1 patch Q72H BLANKA Administration Hydromorphone HCl 1 mg 03/09/17 00:11 03/15/17 10:40 Dilaudid Inj IVP 1 mg Q2HR PRN Administration Pain 8 to 10 Hydromorphone HCl 2 mg 03/09/17 00:10 03/15/17 00:49 Dilaudid PO 2 mg Q3H PRN Administration SEVERE BREAKTHROUGH PAIN Ondansetron HCl 4 mg 03/09/17 00:11 03/09/17 01:40 Zofran Inj IVP 4 mg Q6HR PRN Administration Nausea / Vomiting Phenol/Menthol 1 - 2 sprays 03/09/17 11:45 03/09/17 11:50 Chloraseptic MM 1 sprays PRN PRN Administration Mouth Sore Pain Sodium Chloride 10 ml 03/09/17 00:11 03/15/17 05:57 Normal Saline Flush 0.9% IVP 10 ml PRN PRN Administration NEEDED PER PROVIDER ORDERS Sodium Chloride 10 ml 03/09/17 06:00 03/15/17 05:57 Normal Saline Flush 0.9% IVP 10 ml Q8HR BLANKA Administration Throat Lozenges 1 lozenge 03/10/17 12:46 03/10/17 12:53 Cepacol MM 1 lozenge Q2HR PRN Administration Mouth Sore Pain - Lab Result Lab results reviewed: Yes Fish Bone Diagrams: 03/13/17 06:20 03/15/17 05:00 - Diagnostic Imaging Results Diagnostic Imaging Results: positive: Final report reviewed - Additional Planning Condition/Complexity: Stable My Orders: My Active Orders 03/14/17 13:40 Famotidine [Pepcid] 20 mg PO DAILY 03/17/17 05:00 COMPREHENSIVE METABOLIC PANEL [CHEM] Routine MAGNESIUM [CHEM] Routine PHOSPHORUS [CHEM] Routine PREALBUMIN [CHEM] Routine TRIGLYCERIDES [CHEM] Routine 03/20/17 05:00 CBC - COMP BLD CT W/AUTO DIFF [HEME] Routine COMPREHENSIVE METABOLIC PANEL [CHEM] Routine MAGNESIUM [CHEM] Routine PHOSPHORUS [CHEM] Routine PREALBUMIN [CHEM] Routine PT WITH INR [COAG] Routine TRIGLYCERIDES [CHEM] Routine Plan Discussed with:: Patient, Case Management Time Spent: 15-30 minutes Subjective - Subjective Patient Reports: Other (She is conerned today as she has noted a decrease in output to her colostomy bag. PT has no complaints of abdominal pain or bloating today.) Nursing Reports: No Complaints Objective Vital Signs: Vital Signs - 24 hr 03/14/17 03/14/17 03/14/17 13:00 17:00 20:45 Temperature 36.8 C 36.8 C 36.6 C Heart Rate [ 74 87 78 Brachial] Respiratory 19 17 18 Rate Blood Pressure 162/75 H 158/75 H 140/78 H [Left Brachial artery] O2 Saturation 100 100 99 03/15/17 03/15/17 03/15/17 00:40 04:50 09:00 Temperature 36.7 C 36.9 C 36.8 C Heart Rate [ 63 75 74 Brachial] Respiratory 16 16 18 Rate Blood Pressure 160/58 H 143/71 H 133/68 H [Left Brachial artery] O2 Saturation 100 99 Oxygen O2 Source Room air I&O (Last 24 Hrs): Intake and Output Totals x24h 03/13/17 03/14/17 03/15/17 23:59 23:59 23:59 Intake Total 3436 3377 1080 Output Total 1975 550 Balance 1461 2827 1080 General: Alert, Oriented x3 HEENT: PERRLA, Other (Arcus senilis) Neck: No JVD Neuro: Alert, CN 2-12 Grossly Intact Cardiovascular: Regular rate Respiratory: No respiratory distress Abdomen: Other (hypoactive bowel sounds. No guarding or tenderness) Extremities: No edema Skin: No rashes - Results Results: Laboratory Results WBC 9.3 x10^3/uL (4.8-10.8) 03/13/17 06:20 RBC 3.08 10^6/uL (4.20-5.40) L 03/13/17 06:20 Hgb 9.2 g/dL (12.0-16.0) L 03/13/17 06:20 Hct 27.8 % (37.0-47.0) L 03/13/17 06:20 MCV 90.3 fL (81.0-99.0) 03/13/17 06:20 MCH 30.0 pg (27.0-31.0) 03/13/17 06:20 MCHC 33.2 g/dL (32.0-36.0) 03/13/17 06:20 RDW 15.1 % (12.0-15.0) H 03/13/17 06:20 Plt Count 366 10^3/uL (130-450) 03/13/17 06:20 MPV 6.5 fL (7.9-10.8) L 03/13/17 06:20 Neut # 7.1 10^3/uL (1.5-6.6) H 03/13/17 06:20 Lymph # 0.9 10^3/uL (1.5-3.5) L 03/13/17 06:20 [place] # 0.9 10^3/uL (0.0-1.0) 03/13/17 06:20 Eos # 0.4 10^3/uL (0.0-0.7) 03/13/17 06:20 Baso # 0.0 10^3/uL (0.0-0.1) 03/13/17 06:20 Absolute Nucleated RBC 0.00 x10^3/uL 03/13/17 06:20 Nucleated RBCs 0.0 /100WBC 03/13/17 06:20 PT 11.1 secs (9.9-12.6) 03/13/17 06:20 INR 1.0 (0.8-1.2) 03/13/17 06:20 Sodium 134 mmol/L (135-145) L 03/15/17 05:00 Potassium 4.2 mmol/L (3.5-5.0) 03/15/17 05:00 Chloride 99 mmol/L (101-111) L 03/15/17 05:00 Carbon Dioxide 30 mmol/L (21-32) 03/15/17 05:00 Anion Gap 5.0 (6-13) L 03/15/17 05:00 BUN 12 mg/dL (6-20) 03/15/17 05:00 Creatinine 0.5 mg/dL (0.4-1.0) 03/15/17 05:00 Estimated GFR (MDRD) 119 (>89) 03/15/17 05:00 Glucose 100 mg/dL (70-100) 03/15/17 05:00 Lactic Acid 1.6 mmol/L (0.5-2.2) 03/09/17 06:35 Calcium 8.4 mg/dL (8.5-10.3) L 03/15/17 05:00 Ionized Calcium NO 03/12/17 22:12 Phosphorus 3.6 mg/dL (2.5-4.6) 03/15/17 05:00 Magnesium 1.8 mg/dL (1.7-2.8) 03/15/17 05:00 Total Bilirubin 0.3 mg/dL (0.2-1.0) 03/15/17 05:00 AST 14 IU/L (10-42) 03/15/17 05:00 ALT < 10 IU/L (10-60) L 03/15/17 05:00 Alkaline Phosphatase 55 IU/L (42-121) 03/15/17 05:00 Troponin I < 0.04 ng/mL (<0.49) 03/12/17 22:12 Total Protein 5.2 g/dL (6.7-8.2) L 03/15/17 05:00 Albumin 2.6 g/dL (3.2-5.5) L 03/15/17 05:00 Globulin 2.6 g/dL (2.1-4.2) 03/15/17 05:00 Albumin/Globulin Ratio 1.0 (1.0-2.2) 03/15/17 05:00 Prealbumin 9 mg/dL (18-45) L 03/15/17 05:00 Triglycerides 99 mg/dL (-149) 03/15/17 05:00 Lipase 18 U/L (22-51) L 03/08/17 19:53 TSH 1.28 uIU/mL (0.34-5.60) 03/12/17 22:12 - Procedures Procedures: Procedures ANTERIOR RECT RESECT NEC (03/18/15) BYPASS SIGMOID COLON TO CUTANEOUS, OPEN APPROACH (01/03/17) ENDOSCOPIC BIOPSY OF RECTUM (03/14/15) EXCISION OF PELVIS LYMPHATIC, OPEN APPROACH, DIAGNOSTIC (01/03/17) EXCISION OF RECTUM, ENDO, DIAGN (12/10/16) EXCISION OF SIGMOID COLON, ENDO, DIAGN (12/10/16) EXCISION OF SIGMOID COLON, OPEN APPROACH (01/03/17) INSERT CATHETER SPINAL CANAL, INFUSION THER. SUB. (03/18/15) INSERTION OF INFUSION DEV INTO SUP VENA CAVA, PERC APPROACH (05/09/16) INSERTION OF VAD INTO CHEST SUBCU/FASCIA, OPEN APPROACH (05/09/16) OTH REMOVE BOTH OVARIES/TUBES (03/18/15) TRANSFUSE NONAUT RED BLOOD CELLS IN PERIPH VEIN, PERC (01/03/17)
[2017-03-15] MEDS ORDERED: SENNA 8.6 MG TABLET PO ONE (15:00)
--- NOTE | 2017-03-15 15:07 | XRAY Report ---
TWO-VIEW ABDOMEN: 03/15/2017 CLINICAL INDICATION: Constipation. FINDINGS: Supine and upright views of the abdomen demonstrate a large amount of stool and residual c ontrast in the colon. No small bowel dilatation is present. No free intraperitoneal gas is seen. IMPRESSION: LARGE AMOUNT OF STOOL AND RESIDUAL ORAL CONTRAST IN THE COLON, COMPATIBLE WITH CONSTIPAT ION. NO EVIDENCE OF SMALL BOWEL OBSTRUCTION OR PERFORATION. JOB #: [id number] EXT JOB #:[id number]
[2017-03-15] MEDS ORDERED: POLYETHYLENE GLYCOL 3350 238 GM BOTTLE PO ONE (17:34)
[2017-03-15] MEDS: ONDANSETRON 4 MG/2 ML VIAL IVP PRN (19:11)
[2017-03-16] MEDS: HYDROmorphone 1 MG/ML SYRINGE IVP PRN ×5 (01:17→20:24)
[2017-03-16] MEDS: SODIUM CHLORIDE FLUSH 0.9% 10 ML SYRINGE IVP PRN ×2 (01:17→06:59)
[2017-03-16] MEDS: SODIUM CHLORIDE FLUSH 0.9% 10 ML SYRINGE IVP SCH ×3 (06:59→20:24)
[2017-03-16] MEDS: ENOXAPARIN 30 MG/0.3 ML SYRINGE SUBQ SCH (08:38)
[2017-03-16] MEDS: FAMOTIDINE 20 MG TABLET PO SCH (08:38)
--- NOTE | 2017-03-16 11:27 | PROVIDER PROGRESS NOTE ---
Assessment/Plan - Problem List (1) Small bowel obstruction Assessment/Plan: PT has tolerated PO intake and advancement of diet. Stool in colostomy bag increased after treatment with miralax over night CT abdomen from 03/13/17 showing resolution of SBO Abdominal xray 03/15/17 demonstrated constipation without SBO or perforation Plan Continue on current diet regimen Daily Miralax 17 gm Anticipate discharge home in AM (2) Chronic pain Conclusion/Plan: Pain from CA is well controlled Plan No changes to her current regimen (3) Colon cancer Conclusion/Plan: Stage IV Radiation therapy for symptom management PT working with palliative care and considering hospice DNR/DNI Plan No changes today (4) Protein-calorie malnutrition, severe Assessment/Plan: SBO has cleared. PT has good appetite and is consuming increased food amounts Plan Continue current diet (5) Anemia Qualifiers: Anemia type: unspecified type Qualified Code(s): D64.9 - Anemia, unspecified Assessment/Plan: Stable H/H Likely form chronic disease Asymptomatic Plan No changes (6) PAF (paroxysmal atrial fibrillation) Assessment/Plan: Remains stable with no recurrent episodes of palpitations Afib with RVR during admission PT with bradycardia after IV BB and Diltiazem Telemetry reviewed. Conversion pauses noted. She was also seen to have a pause of 3.4 seconds: this was secondary to a skipped beat while bradycardia in the mid 20's. on previous nights. No issues today with spontaneous conversion to NSR PT is symptomatic with AF and RVR and aware of when she returns to NSR Plan DC telemetry as HR has remained stable Will not place her on [employer] BB or dilt given her pauses on telemetry Currently PPM is not indicated. - Current Meds Current Meds: Current Medications Generic Name Dose Route Start Last Admin Trade Name Freq PRN Reason Stop Dose Admin Enoxaparin Sodium 30 mg 03/09/17 09:00 03/16/17 08:38 Lovenox SUBQ Not Given DAILY BLANKA Famotidine 20 mg 03/14/17 13:40 03/16/17 08:38 Pepcid PO 20 mg DAILY BLANKA Administration Fentanyl 1 patch 03/09/17 01:00 03/15/17 00:48 Duragesic TOP 1 patch Q72H BLANKA Administration Fentanyl 1 patch 03/09/17 01:00 03/15/17 00:49 Duragesic TOP 1 patch Q72H BLANKA Administration Hydromorphone HCl 1 mg 03/09/17 00:11 03/16/17 06:59 Dilaudid Inj IVP 1 mg Q2HR PRN Administration Pain 8 to 10 Hydromorphone HCl 2 mg 03/09/17 00:10 03/15/17 00:49 Dilaudid PO 2 mg Q3H PRN Administration SEVERE BREAKTHROUGH PAIN Ondansetron HCl 4 mg 03/09/17 00:11 03/15/17 19:11 Zofran Inj IVP 4 mg Q6HR PRN Administration Nausea / Vomiting Phenol/Menthol 1 - 2 sprays 03/09/17 11:45 03/09/17 11:50 Chloraseptic MM 1 sprays PRN PRN Administration Mouth Sore Pain Sodium Chloride 10 ml 03/09/17 00:11 03/16/17 06:59 Normal Saline Flush 0.9% IVP 10 ml PRN PRN Administration NEEDED PER PROVIDER ORDERS Sodium Chloride 10 ml 03/09/17 06:00 03/16/17 06:59 Normal Saline Flush 0.9% IVP 10 ml Q8HR BLANAK Administration Throat Lozenges 1 lozenge 03/10/17 12:46 03/10/17 12:53 Cepacol MM 1 lozenge Q2HR PRN Administration Mouth Sore Pain - Lab Result Lab results reviewed: Yes Fish Bone Diagrams: 03/13/17 06:20 03/15/17 05:00 - Diagnostic Imaging Results Diagnostic Imaging Results: positive: Final report reviewed - Additional Planning Condition/Complexity: Improved My Orders: My Active Orders 03/17/17 05:00 COMPREHENSIVE METABOLIC PANEL [CHEM] Routine MAGNESIUM [CHEM] Routine PHOSPHORUS [CHEM] Routine PREALBUMIN [CHEM] Routine TRIGLYCERIDES [CHEM] Routine 03/20/17 05:00 CBC - COMP BLD CT W/AUTO DIFF [HEME] Routine COMPREHENSIVE METABOLIC PANEL [CHEM] Routine MAGNESIUM [CHEM] Routine PHOSPHORUS [CHEM] Routine PREALBUMIN [CHEM] Routine PT WITH INR [COAG] Routine TRIGLYCERIDES [CHEM] Routine Plan Discussed with:: Patient, Case Management Time Spent: 15-30 minutes Subjective - Subjective Patient Reports: Feeling Better (PT is feeling better today. She is pleased that her colostomy bag contains stool and she appears to have normal production again.) Nursing Reports: No Complaints Objective Vital Signs: Vital Signs - 24 hr 03/15/17 03/15/17 03/15/17 13:00 16:35 20:56 Temperature 36.6 C 36.6 C 36.7 C Heart Rate [ 71 69 62 Brachial] Respiratory 16 18 16 Rate Blood Pressure 148/77 H 101/76 165/74 H [Left Brachial artery] O2 Saturation 99 100 100 03/16/17 03/16/17 03/16/17 00:42 05:02 07:49 Temperature 36.3 C L 36.3 C L 36.7 C Heart Rate [ 61 61 65 Brachial] Respiratory 18 16 14 Rate Blood Pressure 156/72 H 157/70 H 138/70 H [Left Brachial artery] O2 Saturation 100 100 100 Oxygen O2 Source Room air I&O (Last 24 Hrs): Intake and Output Totals x24h 03/14/17 03/15/17 03/16/17 23:59 23:59 23:59 Intake Total 3377 1460 600 Output Total 550 300 Balance 2827 1160 600 General: Alert, Oriented x3 HEENT: PERRLA, EOMI Neck: No JVD Neuro: CN 2-12 Grossly Intact Cardiovascular: Regular rate Respiratory: No respiratory distress, Breath sounds nml Abdomen: Normal bowel sounds, Soft, No tenderness Extremities: No edema - Results Results: Laboratory Results WBC 9.3 x10^3/uL (4.8-10.8) 03/13/17 06:20 RBC 3.08 10^6/uL (4.20-5.40) L 03/13/17 06:20 Hgb 9.2 g/dL (12.0-16.0) L 03/13/17 06:20 Hct 27.8 % (37.0-47.0) L 03/13/17 06:20 MCV 90.3 fL (81.0-99.0) 03/13/17 06:20 MCH 30.0 pg (27.0-31.0) 03/13/17 06:20 MCHC 33.2 g/dL (32.0-36.0) 03/13/17 06:20 RDW 15.1 % (12.0-15.0) H 03/13/17 06:20 Plt Count 366 10^3/uL (130-450) 03/13/17 06:20 MPV 6.5 fL (7.9-10.8) L 03/13/17 06:20 Neut # 7.1 10^3/uL (1.5-6.6) H 03/13/17 06:20 Lymph # 0.9 10^3/uL (1.5-3.5) L 03/13/17 06:20 Crawford # 0.9 10^3/uL (0.0-1.0) 03/13/17 06:20 Eos # 0.4 10^3/uL (0.0-0.7) 03/13/17 06:20 Baso # 0.0 10^3/uL (0.0-0.1) 03/13/17 06:20 Absolute Nucleated RBC 0.00 x10^3/uL 03/13/17 06:20 Nucleated RBCs 0.0 /100WBC 03/13/17 06:20 PT 11.1 secs (9.9-12.6) 03/13/17 06:20 INR 1.0 (0.8-1.2) 03/13/17 06:20 Sodium 134 mmol/L (135-145) L 03/15/17 05:00 Potassium 4.2 mmol/L (3.5-5.0) 03/15/17 05:00 Chloride 99 mmol/L (101-111) L 03/15/17 05:00 Carbon Dioxide 30 mmol/L (21-32) 03/15/17 05:00 Anion Gap 5.0 (6-13) L 03/15/17 05:00 BUN 12 mg/dL (6-20) 03/15/17 05:00 Creatinine 0.5 mg/dL (0.4-1.0) 03/15/17 05:00 Estimated GFR (MDRD) 119 (>89) 03/15/17 05:00 Glucose 100 mg/dL (70-100) 03/15/17 05:00 Lactic Acid 1.6 mmol/L (0.5-2.2) 03/09/17 06:35 Calcium 8.4 mg/dL (8.5-10.3) L 03/15/17 05:00 Ionized Calcium NO 03/12/17 22:12 Phosphorus 3.6 mg/dL (2.5-4.6) 03/15/17 05:00 Magnesium 1.8 mg/dL (1.7-2.8) 03/15/17 05:00 Total Bilirubin 0.3 mg/dL (0.2-1.0) 03/15/17 05:00 AST 14 IU/L (10-42) 03/15/17 05:00 ALT < 10 IU/L (10-60) L 03/15/17 05:00 Alkaline Phosphatase 55 IU/L (42-121) 03/15/17 05:00 Troponin I < 0.04 ng/mL (<0.49) 03/12/17 22:12 Total Protein 5.2 g/dL (6.7-8.2) L 03/15/17 05:00 Albumin 2.6 g/dL (3.2-5.5) L 03/15/17 05:00 Globulin 2.6 g/dL (2.1-4.2) 03/15/17 05:00 Albumin/Globulin Ratio 1.0 (1.0-2.2) 03/15/17 05:00 Prealbumin 9 mg/dL (18-45) L 03/15/17 05:00 Triglycerides 99 mg/dL (-149) 03/15/17 05:00 Lipase 18 U/L (22-51) L 03/08/17 19:53 TSH 1.28 uIU/mL (0.34-5.60) 03/12/17 22:12 - Procedures Procedures: Procedures ANTERIOR RECT RESECT NEC (03/18/15) BYPASS SIGMOID COLON TO CUTANEOUS, OPEN APPROACH (01/03/17) ENDOSCOPIC BIOPSY OF RECTUM (03/14/15) EXCISION OF PELVIS LYMPHATIC, OPEN APPROACH, DIAGNOSTIC (01/03/17) EXCISION OF RECTUM, ENDO, DIAGN (12/10/16) EXCISION OF SIGMOID COLON, ENDO, DIAGN (12/10/16) EXCISION OF SIGMOID COLON, OPEN APPROACH (01/03/17) INSERT CATHETER SPINAL CANAL, INFUSION THER. SUB. (03/18/15) INSERTION OF INFUSION DEV INTO SUP VENA CAVA, PERC APPROACH (05/09/16) INSERTION OF VAD INTO CHEST SUBCU/FASCIA, OPEN APPROACH (05/09/16) OTH REMOVE BOTH OVARIES/TUBES (03/18/15) TRANSFUSE NONAUT RED BLOOD CELLS IN PERIPH VEIN, PERC (01/03/17)
[2017-03-17] MEDS: HYDROmorphone 2 MG TABLET PO PRN (00:27)
[2017-03-17] MEDS ORDERED: SODIUM CHLORIDE FLUSH 0.9% 10 ML SYRINGE IVP PRN (05:22)
[2017-03-17] MEDS: HYDROmorphone 1 MG/ML SYRINGE IVP PRN ×3 (05:42→14:20)
[2017-03-17] MEDS: SODIUM CHLORIDE FLUSH 0.9% 10 ML SYRINGE IVP SCH ×2 (05:44→14:34)
[2017-03-17 06:36] LABS: BILIRUBIN,TOTAL 0.4 mg/dL (0.2-1.0); BUN - BLOOD UREA NITROGEN 15 mg/dL (6-20); CALCIUM 8.6 mg/dL (8.5-10.3); CARBON DIOXIDE - CO2 29 mmol/L (21-32); CHLORIDE 101 mmol/L (101-111); CREATININE 0.5 mg/dL (0.4-1.0); GFR - MDRD 119 (>89); GLUCOSE 103 mg/dL (70-100); MAGNESIUM 1.8 mg/dL (1.7-2.8); PHOSPHORUS 3.9 mg/dL (2.5-4.6); POTASSIUM 4.4 mmol/L (3.5-5.0); PREALBUMIN 12 mg/dL (18-45); SODIUM 134 mmol/L (135-145); TOTAL PROTEIN 5.5 g/dL (6.7-8.2); TRIGLYCERIDES 155 mg/dL
[2017-03-17] MEDS: FAMOTIDINE 20 MG TABLET PO SCH (08:12)
[2017-03-17] MEDS: ENOXAPARIN 30 MG/0.3 ML SYRINGE SUBQ SCH (08:57)
[2017-03-17] MEDS ORDERED: POLYETHYLENE GLYCOL 3350 17 GM PACKET PO SCH (09:00)
--- NOTE | 2017-03-17 11:24 | Discharge Plan ---
Discharge Plan Disposition: 01 Home, Self Care Condition: Good Diet: Regular Activity Restrictions: No Restrictions Shower Restrictions: No Weight Bearing: Full Weight No Smoking: If you smoke, Please STOP! Call for help.
[2017-03-17 12:26] VITALS: BP 151/78
--- NOTE | 2017-03-17 12:59 | DISCHARGE SUMMARY ---
DATE OF ADMISSION: 03/09/2017 DATE OF DISCHARGE: PRIMARY CARE PROVIDER: Jacob Benitez MD DISCHARGING PROVIDER: Maxwell De La Cruz PA-C ADMITTING DIAGNOSES 1. Small-bowel obstruction. 2. Intractable vomiting. 3. Hypertension. 4. Chronic pain. 5. Stage IV colon cancer. 6. Obstipation. 7. Atrial fibrillation. DISCHARGE DIAGNOSES 1. Small-bowel obstruction - resolved. 2. Intractable vomiting - resolved. 3. Hypertension - controlled. 4. Chronic pain - controlled. 5. Stage IV colon cancer, on radiation therapy. 6. Obstipation secondary to chronic opioid use. 7. Atrial fibrillation with controlled ventricular rate response. BRIEF HISTORY OF PRESENT ILLNESS: For specifics, please see that on admission as the patient was rece ntly discharged from the hospital for intractable vomiting and abdominal pain. She went home and went to radiation therapy on 03/08/2017. She was doing well following her radiation therapy until 3:30 p. m. the afternoon of admission. After eating ice cream, she began having severe abdominal pain, nausea and persistent vomiting. She is unable to keep medications down, prompting her visit to the hospital . COURSE IN CENTER: The patient was initially seen in the emergency department. It was difficult to con trol her nausea and severe pain despite IV Dilaudid. The patient was found to have a tender abdomen w ith guarding. Elevated white blood cell count was seen on her laboratory tests. CT abdomen was done w ith results significant for small-bowel obstruction. Surgeon on-call did not feel that she was a good surgical candidate, and recommended placement of an NG tube. Abdominal distention had resolved by . Unfortunately, she had no stool moving into her ostomy bag. Her abdominal distention did im prove with the NG tube. This persisted until 03/12/2017 when the volume through the NG tube had decre ased. She continued to have no gas or stool in her NG tube. We then ordered a CT of her abdomen to re assess the small-bowel obstruction. Fortunately, this came back with resolution of previously seen sm all-bowel obstruction pattern. Oral contrast was utilized, and this was able to reach the ascending c olon, excluding a complete small-bowel obstruction. We then reinitiated a clear liquid diet, which sh e tolerated with stool moving into the ostomy bag. The following day, we advanced her diet to solid f oods. Initially she did well, but then the stool volume again declined. X-ray was performed on 2016 to assess for recurrence of her small-bowel obstruction. Fortunately, this showed constipation w ithout obstruction or perforation. Initially given MiraLax 17 gram dose with no benefit. We then orde red the MiraLax bowel prep. The patient did not consume the entire prep, but was able to drink betwee n 1/4 and 1/2 of the volume. This was enough to cause resolution of her constipation. The patient had normal bowel movements through the rest of her stay. At the time of discharge, she was doing well. She had eaten lunch with stool moving through her GI tr act and into the ostomy bag. The patient did have occasional episodes of hypertension. This was mostly controlled with her current medications and minimal adjustments were necessary. The patient had atrial fibrillation with RVR on occasion. These were brief occurrences. There was an episode of bradycardia associated with diltiazem. She also had a 3.4 second pause, which was a skippe d beat in the setting of significant bradycardia on telemetry. We discontinued the beta-jessica and d iltiazem. Continued to monitor on telemetry. Ventricular rates remained controlled without prolonged recurrence. She had no further episodes of bradycardia or pauses. At time of discharge, the patient w as doing well with no complaints. She had no further abdominal pain. She was making stool, which was moving into her ostomy bag. LABORATORY TESTS ON DAY OF DISCHARGE: Sodium 134, potassium 4.4, chloride 101, carbon dioxide 29, BUN 15, creatinine 0.5, phos 3.9, mag 1.8, total bilirubin 0.4, AST 12, ALT less than 10. RADIOLOGY STUDIES 1. Abdominal x-ray 03/15/2017; large volume of stool without evidence of small-bowel obstruction or p erforation. 2. Abdominal pelvis CT scan 03/13/2017; resolution of small-bowel obstruction. DISCHARGE MEDICATIONS 1. Fentanyl 50 mcg patch and fentanyl 12 mcg patch, 1 of each patch q.72 hours for a total of 62 mcg. 2. Lisinopril 10 mg daily. 3. Senokot 8.6 mg b.i.d. 4. Zofran 4 mg q.4h. as needed. 5. MiraLax 17 grams daily. 6. Dilaudid 2 mg tablets q.3h.P.r.n. pain. PHYSICAL EXAMINATION GENERAL: Pleasant, frail-appearing lady in no acute distress. HEENT: Normocephalic, atraumatic. Pupils equal, round, reactive to light. EOMs intact. Bilateral arcu s senilis is present. NECK: No JVD, thyromegaly or bruit. CARDIOVASCULAR: Regular rate, irregular rhythm. RESPIRATORY: Clear to auscultation bilaterally. ABDOMEN: Normal bowel tones, soft, nontender, nondistended. EXTREMITIES: No edema. NEUROLOGICAL: Cranial nerves 2-12 grossly intact. PSYCHIATRIC: Mood and affect appropriate. DIET: Encouraged the patient to monitor her food intake, eat smaller meals, and take fiber supplement s as directed. ACTIVITY: Ambulate frequently throughout the day. TIME SPENT ON DISCHARGE: Greater than 30 minutes. Thank you for the opportunity to participate in the care of the patient. JOB #: [id number] EXT JOB #:[id number]
== END 2017-03-17 15:03 | disposition home or self-care (01) | DRG 388 ==
LOC: ED 18:01 → MS 03-09 00:12
PROVIDERS: ADMIT Internal Medicine; ATTEND Physician Assistant
PROC: 3E0336Z Introduction of Nutritional Substance into Peripheral Vein, Percutaneous Approach (ICD-10-PCS; principal; 2017-03-12)
DX: K56.60 Unspecified intestinal obstruction (principal); C18.9 Malignant neoplasm of colon, unspecified; E43 Unspecified severe protein-calorie malnutrition; K21.9 Gastro-esophageal reflux disease without esophagitis; Z68.1 Body mass index [BMI] 19.9 or less, adult; I10 Essential (primary) hypertension; G89.3 Neoplasm related pain (acute) (chronic); K59.03 Drug induced constipation; T40.2X5A Adverse effect of other opioids, initial encounter; I48.0 Paroxysmal atrial fibrillation; T46.1X5A Adverse effect of calcium-channel blockers, initial encounter; D64.9 Anemia, unspecified; R00.1 Bradycardia, unspecified; H91.90 Unspecified hearing loss, unspecified ear; Z93.3 Colostomy status; Z79.891 Long term (current) use of opiate analgesic; Z79.899 Other long term (current) drug therapy; Z66 Do not resuscitate
CPT/HCPCS: 36415; 74020; 74176; 74177; 80053; 83605; 83690; 83735; 84100; 84134; 84443; 84478; 84484; 85025; 85610; 96365; 96375; 99233; 99285

== ENCOUNTER 2017-03-19 15:45 | Outpatient (CLI) | payer MEDICARE, BC | END 2017-03-19 15:46 | disposition home or self-care (01) | DX: Z51.5 Encounter for palliative care (principal); G89.3 Neoplasm related pain (acute) (chronic); E46 Unspecified protein-calorie malnutrition; K59.00 Constipation, unspecified; C18.9 Malignant neoplasm of colon, unspecified; C78.00 Secondary malignant neoplasm of unspecified lung; I10 Essential (primary) hypertension; Z79.899 Other long term (current) drug therapy; Z79.891 Long term (current) use of opiate analgesic; Z93.3 Colostomy status; H91.90 Unspecified hearing loss, unspecified ear; Z66 Do not resuscitate ==

== ENCOUNTER 2017-03-27 11:59 | Outpatient (CLI) | payer MEDICARE, BC ==
--- NOTE | 2017-03-28 05:29 | CONSULTATION NOTE ---
DATE OF CONSULTATION: 03/27/2017 00:00:00 TIME OF VISIT: 12:30-12:45. REQUESTING PROVIDER: Jacob Benitez MD. TOPIC: Followup palliative care consult. BRIEF HISTORY OF PRESENT ILLNESS INTERVAL UPDATE: This is a feisty, independent 81-year-old woman of heritage who has stage IV colon cancer with metastatic disease to the lung, currently with stable pulmonary nodules, has had recurrent disease at her anastomosis, for which she had debul ginette surgery, which included colostomy placement. She has currently finished her radiation and is doi ng quite well. She remains at her weight at 86.5. I am checking on her briefly as far as followup on pain management. She reports her pain is improved. It is a 2/3/10, but still needing breakthrough keyur n medication of hydromorphone 2 mg about every 9-10 hours. It is still deep in the rectal area. She c urrently is on fentanyl 50 mcg patch and hope to titrate down further, but feels currently her pain i s well managed and does not feel ready to decrease it yet. She reports her appetite is good. Her celsa ls have been moving. She has been using the MiraLax 1-2 times a day, senna only occasionally. Unfortu nately, she is still having complications with her colostomy as far as adherence and had "3 blow outs in one day" and is quite distressed by this. She does admit to ongoing fatigue and is able to say th at she does not expect to be back to her previous level of functioning. She says, "everything is fine you know Viviana, except that I have cancer." BRIEF SOCIAL HISTORY: She lives independently at home. Her sister, Haley, has stayed, but is planning to go home next week. She continues to have struggle with the support of her friend, Lo, who does h ave dementia and does appear to be emotionally reacting to the patient's imminent decline, which caus es the patient quite a bit of distress. She has been trying to clean things out and tidy her househol d. She has been doing this with the assistance of her sister and is somewhat apprehensive about her l eaving, particularly since she has been assisting with the colostomy. PERFORMANCE STATUS: The patient is currently getting support with meals, laundry, and IADLs with her sister presently. She reports she could do it, though certainly is quite tiring for her. I would put her at up palliative care performance status of 70%. REVIEW OF SYSTEMS: As noted above, no chest pain. She is checking her blood pressure on a regular bas is, intermittent shortness of breath with activity. Continues to be challenged by her activity into[facility]. She is alert and oriented, remains quite feisty with a good attitude, though she does appear s omewhat anxious with her sister leaving. PHYSICAL EXAMINATION GENERAL APPEARANCE: She is bright, making good eye contact. I am seeing her during her colostomy visi t. EYES: Normal on inspection, slight periorbital edema. ENT: Mucous membranes are moist. NECK: Trachea midline. RESPIRATORY: No effort. CARDIOVASCULAR: Her pulse is about 72 and regular. ABDOMEN: Her stoma looks healthy, though continues to have difficulty with "lots of skin." Her abdome n is soft, nontender. Her bowel tones are normal. SKIN: Did not examine her tail bone. EXTREMITIES: Able to move all extremities without difficulty. PALLIATIVE CARE DISCUSSION: Who is present, myself, Haley, and the wound ostomy nurse. Did touch brie fly on how the patient was doing. She is quite pleased that they did complete plans. [facility] and got a "good deal." [place] very kindly treated and well supported. Her sister felt some relief at having this done as well. The patient reports she is continuing to live as long as she can as far as independence and continues to prepare for her imminent demise, but her goa l again is to return to the [facility]. She does have a POLST in place and is very clear about not wantin g to be resuscitated. IMPRESSION: This is a feisty independent 81-year-old woman with stage IV metastatic colon cancer. Cur rently her pain is being well controlled. I will leave her at 50 mcg of fentanyl. She is again still hoping to gain some quantity, as well as focus on quality. RECOMMENDATIONS/COUNSELING DONE 1. Pain of neoplastic origin. She is doing well on the fentanyl 50 mcg patch, has been using her Dila udid 4 mg 1/2 a tablet which is 2 mg, needing about 2 in 24 hours. 2. Protein-calorie malnutrition. She has not lost any weight, is remaining weight neutral. She is simon te pleased with this. She reports she is "eating like a horse." I am concerned about meal prep after her sister leaves, though she is quite determined. 3. Constipation. She moves her bowels on a regular basis and titrating her medications accordingly. S he has had some more difficulty, I did ask her to initiate back on her Senna at least 1 tablet every evening. 4. Metastatic colon cancer, stage IV currently. She is going to have a month off of treatment. We sophie l continue to weigh benefits and burdens of any further treatment in the future. Is hoping to regain some strength. She is quite pleased with having a break from treatment. 5. Advanced care planning. She has met a goal of getting her arrangements made. Continues to struggle with how best to support her friend, Lo, as she knows that this will leave her in a difficu lt place upon her . Her sister, Haley, will be leaving the beginning of next week, but is willin g to come back at any point in time to provide ongoing support and caregiving needs. TIME SPENT: 15 minutes with a brief interview for counseling and coordination of care to check on her pain management and coping and further symptom management needs. JOB #: [id number] EXT JOB #:[id number]
== END 2017-03-27 12:00 | disposition home or self-care (01) ==
LOC: PC 11:59
PROVIDERS: ATTEND Nurse Practitioner Adult Health
DX: Z51.5 Encounter for palliative care (principal); G89.3 Neoplasm related pain (acute) (chronic); C18.9 Malignant neoplasm of colon, unspecified; C78.00 Secondary malignant neoplasm of unspecified lung; Z93.3 Colostomy status; E46 Unspecified protein-calorie malnutrition; K59.00 Constipation, unspecified; Z79.891 Long term (current) use of opiate analgesic; R53.83 Other fatigue; R06.09 Other forms of dyspnea; Z66 Do not resuscitate
CPT/HCPCS: 99213

== ENCOUNTER 2017-04-17 10:11 | Outpatient (CLI) | payer MEDICARE, BC | END 2017-04-17 10:12 | disposition home or self-care (01) | LOC: PC 10:11 | PROVIDERS: ATTEND Nurse Practitioner Adult Health | DX: Z53.9 Procedure and treatment not carried out, unspecified reason (principal) ==

== ENCOUNTER 2017-05-20 15:30 | Outpatient (CLI) | payer MEDICARE, BC ==
--- NOTE | 2017-05-20 22:25 | PROVIDER PROGRESS NOTE ---
Palliative Care Follow Up - Referral Referring Provider: Dr. 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 She had completed radiation treatment mid march with major improvement in her pain management. She had some reprieve for several weeks, attending to her favorite pasttime [place] the [place], though she still struggled with the management of her colostomy. She had gotten her Fentanyl titrated down to 50 mcg, but about 3-4 weeks ago started with escaliting pain again. She called her sister Haley last week as she was now mostly bedbound related to the pain, weakness, and now weight loss again. Today she weighs in at 82 pounds, she had gotten up to 91 pounds. She started with her new oncologist Dr. Garcia last week, she completed her CT scans , which show progressive disease. Unfortunately her note is not available to me, but I suspect it was to get baseline on her pain/disease process. CT of her neck/soft tissues show chronic sinus disease no adenopathy, CT of chest progression of pulmonary mets with dominant lesion of right middle lobe 3.1 x 2.6 cm form 2.4 x 2.4, and residual pelvic mass 6.1 x 5.9 cm ( previously 4.2 x 4.5 cm) now with hydronephrosis. She presents today at home visit, in bed, slightly confused, very irritable and with severe pain despite fentanyl 100 mcg patch and 4 mg of hydromorphone about every 4 hours, poor intake, a few bowls of ice cream last 24 hours, has small amount of soft stool in colostomy bag though has slowed down, complaining of feeling cold, has temp 99.1, foul smelling urine, and weakness. The weakness has progressed most acutely in last 7-10 days. Social History - Living Situation Living arrangement: At home Living Situation: With family (Haley, sister who is much younger than patient is here to attend to care needs and is DPOA), With friend(s) (Pat her terminal system operator friend, continues to struggle with memory problems and lives in home, is very concerned about her decline) Medications/Allergies - Medications Home Medications: Ambulatory Orders Medication Instructions Recorded Confirmed Lisinopril 10 mg PO DAILY PRN 01/21/17 05/20/17 fentaNYL 50 MCG PATCH [Duragesic 2 patch TOP Q72H 01/21/17 05/20/17 50mcg patch] Senna [Senokot] 2 tab PO PRN PRN 02/15/17 05/20/17 Polyethylene Glycol 3350 [Miralax] 17 gm PO DAILY packet 03/17/17 05/20/17 Hydromorphone HCl 4 mg PO Q3HR PRN 05/20/17 05/20/17 Ondansetron Odt [Zofran Odt] 1 tab PO Q6HR PRN 05/20/17 05/20/17 - Allergies Allergies/Adverse Reactions: Allergies Allergy/AdvReac Type Severity Reaction Status Date / Time No Known Drug Allergies Allergy Verified 03/08/17 18:10 Review of Systems - Constitutional Constitutional: reports: Fatigue, Chills, Malaise, Weakness, Poor appetite, Weight loss - Eyes Eyes: denies: Vision loss - Ears, Nose & Throat Ears, Nose & Throat: reports: Hearing loss, Hearing aids - Cardiovascular Cariovascular: reports: Decr. exercise tolerance. denies: Chest pain - Respiratory Respiratory: reports: SOB with exertion. denies: Cough, Orthopnea, SOB at rest - Gastrointestinal Gastrointestinal: reports: Other (rectal pain, reports continues small amounts of discharge foul smelling) - Genitourinary Genitourinary: reports: Other (strong and foul). denies: Dysuria, Incontinence - Musculoskeletal Musculoskeletal: reports: Stiffness, Muscle weakness - Integumentary Integumentary: reports: Dryness - Neurological Neurological: reports: Memory problems - Psychiatric Psychiatric: reports: Other (irritable) - Endocrine Endocrine: reports: Intolerance to cold - Hematologic/Lymphatic Hematologic/Lymphatic: reports: Anemia - All Other Systems All Other Systems: reports: Reviewed and negative Physical Examination - Vital Signs Temperature: 99.1 C Pulse Rate: 64 Respiratory Rate: 16 O2 Saturation: 99 Blood Pressure: 152/92 - Physical Exam General Appearance: positive: Moderate distress, Anxious, Lethargic, Cachetic Eyes Bilateral: positive: No scleral icterus ENT: positive: Dry mucous membranes Neck: positive: No JVD, Trachea midline Respiratory: positive: Breath sounds nml Cardiovascular: positive: Regular rate & rhythm Abdomen: positive: Nml bowel sounds, No distention, Other (discomfort in lower rectum, difficulty tolerating sitting up without pain behaviors) Skin: positive: Dryness Extremities: positive: Other (muscle wasting in all extremeties) Neurologic/Psychiatric: positive: Disoriented to time, Weakness, Depressed mood/ affect Palliative Care - POLST Patient has POLST: Yes POLST Status: DNR, Limited Interventions Pain: Pain worsening, Location (in deep rectal area, denies pain in flank, recurred where had experienced previous to radiation) Drowsiness: Moderate (4-6), Comment (sleeping on and off) Nausea: None Anxiety: Mild (1-3) Dyspnea: None Anorexia: Severe (7-10), Weight loss (patient reports doesn't feel like eating, denies nausea with it "knows I should") Insomnia: Other (not able to be clear about nighttime) Constipation: No, Opoid induced, Comment (had stopped bowel meds, couldn't tell me why other than not eating, inst. to continue with mirlax, small amount of soft stool, brown in bag, had been about 2 days) Feelings of wellbeing/Perceived Quality of Life: Worsening Performance Status: Previous level of function prior to this episode [Has been progressively declining, had gotten to place able to ambulate and tolerated being in [place] for several hours at a time with frequent rest periods]. Current level of functioning [Patient mostly bedbound secondary to pain and weakness, ambulated independently to bathroom but sister attending to ADLs]. Palliative Care Performance Status [40%]. - Palliative Care Discussion: Patient has POLST in home, DNR and limited interventions. She understands the pain means who cancer is worse, she would accept intervention if it would help, though recognizes moving towards end of life. She has appointment with oncologist Dr. Garcia on Saturday and would like to delay further conversation or consideration until completed. Haley is present and recognized serious decline, and will stay to end of life to provide support. Patient pragmatic in that has made plans and "wrapped up" loose ends, but continues to avoid further discussion of transitioning currently. If she were not to be able to return to [facility] and/or address escalating pain then this would be threshold for hospice. Short term goal would be to improve her current status to make it to appointment. She presents with temp, pain crisis, dehydration and confusion. Pat and sister aware of decline, patient just "irritated" with the whole thing. Results - Lab Results Lab results reviewed: Yes Lab and Imaging Results: CT scans addressed in HPI. Patient presents with hyponatremia 05/15, elevated WBC 15.4, neut 13.6, hgb 8.6 and hct 25.7 Impression and Recommendations - Palliative Care Impression: This is an 81 year old woman with progressing Stage IV metastatic Colon Cancer, presenting with escalating pain, temp, hyponatremia, increased confusion, weight loss, anorexia and diminishing quality of life. Recommendations/Counseling Done: 1. Pain of neoplastic origin poorly controlled. Patient with escalating pain, had fentanyl patch increased last week to 100 mcg through clinic with out much improvement. Patches examined, unclear if properly adhered, changed out and replaced. Has been taking hydromorphone 4 mg every four hours, reporting relief only 2-3 hours, changed interval to every 2 hours but reminded will add to sedation and confusion. "Desparate for relief" inst. to log, will titrate up after evaluate with new patches effectiveness. 2. Dehydration/hyponatremia. Given patient's goals to further explore options, arranged for patient to get one liter normal saline tomorrow at clinic. Reviewed with sister if able to push fluids/supplements (patient can be resistant), had patient dringk 10 ounces while there. 3. Constipation. Inst. to restart miralax daily, even with decreased intake need bowels to move small amount daily and keep soft. 4. Foul urine. Patient voided 200 ml dark yellow foul smelling urine, no dysuria , but does have temp 99.1 and complaints of chills. Urine collected, started on Cipro 500 mg BID for 7 days in meantime. 5. Hydronephrosis, Dr. Garcia available tomorrow, will consult regarding pros/ cons need or consideration for stenting, though pain is located in deep rectal area as before. 6. Advanced care planning, patient has had rapid decline with progressive dx, currently if patient's goals align and/or no further treatment or interventions would be appropriate for hospice. Sister willing to stay to be primary caregiver so patient can be at home. Counseling to sister regarding this, patient would benefit from hospital bed and wheelchair, will wait pursue until follow up with oncologist per patient request. Time Spent: 60 minutes with 50% spent in counseling and coordination of care regarding pain/ symptom management, advanced care counseling and anticipatory guidance.
== END 2017-05-20 15:31 | disposition home or self-care (01) ==
LOC: PC 15:30
PROVIDERS: ATTEND Nurse Practitioner Adult Health
DX: Z51.5 Encounter for palliative care (principal); G89.3 Neoplasm related pain (acute) (chronic); C78.01 Secondary malignant neoplasm of right lung; C78.02 Secondary malignant neoplasm of left lung; C18.9 Malignant neoplasm of colon, unspecified; K59.00 Constipation, unspecified; R82.99 Other abnormal findings in urine; E87.1 Hypo-osmolality and hyponatremia; E86.0 Dehydration; N13.30 Unspecified hydronephrosis; Z79.891 Long term (current) use of opiate analgesic; Z93.3 Colostomy status; Z66 Do not resuscitate
CPT/HCPCS: 99215

== ENCOUNTER 2017-05-20 16:15 | Outpatient (CLI) | payer MEDICARE, BC ==
[2017-05-20 17:11] LABS: BILIRUBIN,URINE NEGATIVE (NEGATIVE); PH,URINE 6.5 PH (5.0-7.5)
[2017-05-20 17:21] LABS: UA CHARGE (STRIP ONLY) YES; UR CULTURE IF IND NOT INDICATED
== END 2017-05-20 16:16 | disposition home or self-care (01) ==
LOC: LAB.R 16:15
PROVIDERS: ATTEND Nurse Practitioner Adult Health
DX: R82.99 Other abnormal findings in urine (principal)
CPT/HCPCS: 81001; 81003; 87086

== ENCOUNTER 2017-05-27 13:45 | Outpatient (CLI) | payer MEDICARE, BC ==
--- NOTE | 2017-05-27 20:39 | PROVIDER PROGRESS NOTE ---
Palliative Care Follow Up - Referral Referring Provider: Dr. 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 She had completed radiation therapy with a reprieve for several weeks, allowing her to return to her favorite activity of enjoying the casino. She has had escalating pain the last few weeks despite escalating her fentanyl patch. Her CT scan showed progression of her disease in her rectal area and her lungs. Her pain appears now more neuropathic in nature, sharp shooting/burning at the anus. She has recently seen her new oncologist Dr. Garcia, was moving forward on oral chemotherapy, her understanding is that it would only extend her life a few months. She received a transfusion last Saturday with not relief of her fatigue, and has continued to be mostly bedbound, now with stage II decub, poor intake, and feeling currently her quality of life has met the threshold she does not really want to extend her suffering. Despite increasing her Fentanyl to 125 mcg, she is needing hydromorphone 4 mg every 2 hours with only mild to moderate relief, some slight confusion, but not sedated and still poorly controlled. Patient having some local reaction to patches, had been scheduled to start oral chemotherapy which is not a good combination with methadone. After much discussion patient has decided to transition to hospice. Social History - Living Situation Living arrangement: At home Living Situation: With family (Anabelle Allen sister here to provide support), With friend(s) (Lo her friend lives with her as well) Support System: Mer has been oversight and CG for her friend Lo, no other family or support available, has no children Medications/Allergies - Medications Home Medications: Ambulatory Orders Medication Instructions Recorded Confirmed fentaNYL 50 MCG PATCH [Duragesic 125 mcg TOP Q72H 01/21/17 05/27/17 50mcg patch] Senna [Senokot] 2 tab PO PRN PRN 02/15/17 05/27/17 Polyethylene Glycol 3350 [Miralax] 17 gm PO DAILY packet 03/17/17 05/27/17 Hydromorphone HCl 4 - 8 mg PO Q3HR PRN 05/20/17 05/22/17 Ondansetron Odt [Zofran Odt] 1 tab PO Q6HR PRN 05/20/17 05/27/17 - Allergies Allergies/Adverse Reactions: Allergies Allergy/AdvReac Type Severity Reaction Status Date / Time No Known Drug Allergies Allergy Verified 03/08/17 18:10 Review of Systems - Constitutional Constitutional: reports: Fatigue, Poor appetite, Weight loss - Eyes Eyes: reports: Blurred vision - Ears, Nose & Throat Ears, Nose & Throat: reports: Hearing loss, Hearing aids - Cardiovascular Cariovascular: reports: Decr. exercise tolerance. denies: Chest pain - Respiratory Respiratory: reports: SOB with exertion. denies: Cough, SOB at rest - Gastrointestinal Gastrointestinal: reports: Other (colostomy putting out liquid brown stool) - Genitourinary Genitourinary: denies: Dysuria, Frequency, Urgency, Incontinence - Musculoskeletal Musculoskeletal: reports: Muscle aches, Stiffness, Muscle weakness - Integumentary Integumentary: reports: Dryness - Neurological Neurological: reports: General weakness, Dizziness, Memory problems - Psychiatric Psychiatric: reports: Depression - Endocrine Endocrine: reports: Intolerance to cold - Hematologic/Lymphatic Hematologic/Lymphatic: reports: Anemia (recent blood tranfusion) - All Other Systems All Other Systems: reports: Reviewed and negative Physical Examination - Vital Signs Temperature: 98.9 C Pulse Rate: 72 Respiratory Rate: 18 O2 Saturation: 97 Blood Pressure: 162/64 - Physical Exam General Appearance: positive: Moderate distress, Anxious Eyes Bilateral: positive: Normal inspection ENT: positive: Dry mucous membranes. negative: Oral lesions Neck: positive: No JVD, Trachea midline Respiratory: positive: Breath sounds nml Cardiovascular: positive: Regular rate & rhythm Abdomen: positive: Nml bowel sounds. negative: Non-tender, No distention, Guarding Skin: positive: Dryness, Other (Sister reports has not had energy to bath, does have bright red gabo area from wearing pad, still have some rectal drainage Has small stage II decub on coccyx 0.5 cm x 2. cm, had been using barrier cream) Extremities: negative: Pedal edema Neurologic/Psychiatric: positive: Oriented x3, Depressed mood/affect Palliative Care - POLST Patient has POLST: Yes POLST Status: DNR, Comfort Measures Pain: Pain worsening, Location (Deep in rectal anus area), Severity (very severe despite escalating opioids), Pattern (persistant, worse with sitting) Drowsiness: Mild (1-3) Nausea: None Anxiety: None Dyspnea: None Anorexia: Moderate (4-6) (Patient eating mostly ice cream, drinking some water, no appetite with early satiety), Weight loss Insomnia: Sleeps poorly (up every 2-3 hours for pain medication) Constipation: Yes, Opoid induced, Managed Feelings of wellbeing/Perceived Quality of Life: Worsening Performance Status: Patient mostly in bed last week, ambulates to BR independently but "furniture walks" no falls. Can feed self, has not showered, sister feels it is because proud and too weak. "keeps clean". Able to feed self, but sister helping with household. Palliative Care Performance Status 40% - Palliative Care Discussion: Discussed at length patient's goals of care, had told Dr. Garcia to continue on treatment, after no improvement with transfusion and recognizing decline, does not want to prolong her suffering. Counseling on hospice, team support but still needs to have primary CG and support at home. Haley willing to do, but will need support. Discussed given Pat' limitations should change DPOA to sister as to be able to make decisions when she is not, which is coming soon. In agreement. Concerned about who is going to support PAT when gone, her daughter Jefry was here the weekend and is aware. Redid POL with goals of comfort. Will see Patsy Carlos for colostomy care tomorrow, Haley can do it but Hospice nurse will be able to take over, she wants to say her goodbyes. If pain controlled and possible, she would like one "more trip to [place]" recognizing this is most likely not possible. Discussed if not getting chemotherapy given the kind of pain she has and increasing reaction to patches will transition over to methadone when there are Rns monitoring her during this time. Impression and Recommendations - Palliative Care Impression: This is an 81 year old woman of heritage with progressing Colon Cancer Stage IV with pulmonary mets, escalating pain, functional decline, anorexia and goals for focusing on comfort. Will transition to hospice support. Recommendations/Counseling Done: 1. Pain of neoplastic origin. Pain developing neuropathic component to description, escalating fentanyl patch with little improvement. Will add 50 mcg today for total of 175 mcg, current BTP dosing of hydromorphone total 49-48 mg/ 24 hours. Will have her use 1-2 tabs for breakthrough as 1 not lasting the 2 hours. Patient with weight loss, and getting reactions now to adhesive. Now that is not going to do oral chemotherapy, and will have hospice supervision, recommend on admission to hospice transition her to methadone, patient without signs of obstruction, currently able to still swallow. Equianalgesia of fentanyl 175 mcg + hydromorphone 40 mg = methadone 20 mg. Would start though with 5 BID as unsure of absorption of fentanyl given her cachetic state and titrate fColoairly rapidly with supervision. 2. Colostomy management. Has been seen weekly by Patsy DUMONT because of difficult placement, sister Anabelle did place last week and it held. She will see her tomorrow, but aware hospice nurses will be able to change for her now. Just ordered supplies, but told hospice will be assisting with this at this time. Currently soft stool moving through, is able to still empty. 3. Stage II decub on coccyx. Cleansed and applied Mepilex dressing, will benefit from hospital bed and mattress for pressure relief. 4. Advanced care planning. After much discussion regarding DPOA, which currently is her friend Lo Richetr whom she has had live with her for many years, it was decided as hospice will need to work with primary caregiver which at this time is Anabelle Allen, her sister to redo this. Arrangements were made to have notary meet us at appt. tomorrow. We also updated POLST to reflect new goals of comfort measures. Contact to Dr. Garcia regarding goals, in agreement for focus on comfort, and Dr. Benitez who will send order. Reviewed hospice team, support, but limitations as will still need primary cg, Anabelle willing to do it with support, though this bothers Mer to be a burden. Will definitely benefit from hospital bed and bathing as soon as available. Time Spent: 60 minutes with greater than 50% done in counseling and coordination of care regarding pain management, hospice, referral facilitated and advanced care planning
== END 2017-05-27 13:46 | disposition home or self-care (01) ==
LOC: PC 13:45
PROVIDERS: ATTEND Nurse Practitioner Adult Health
DX: Z51.5 Encounter for palliative care (principal); G89.3 Neoplasm related pain (acute) (chronic); C18.9 Malignant neoplasm of colon, unspecified; C78.00 Secondary malignant neoplasm of unspecified lung; R63.0 Anorexia; G47.00 Insomnia, unspecified; T40.2X1S Poisoning by other opioids, accidental (unintentional), sequela; K59.03 Drug induced constipation; Z93.3 Colostomy status; L89.152 Pressure ulcer of sacral region, stage 2; Z66 Do not resuscitate
CPT/HCPCS: 99350